=== PATIENT | female | born 1935 | race Caucasian/White ===

== ENCOUNTER 2020-10-06 08:36 | Outpatient (CLI) | payer MEDICARE, OTHER, SELFPAY ==
--- NOTE | 2020-10-06 08:45 | USCV_ITS ---
Carrie Winston Age: 84 Gender: F : 1935 Exam Date: 10/06/2020 09:03 Ordering Phys: Bev Sanders MD ([email or web address]) Technologist: Exam Location[place] [facility] [place]: SOB BP: 120 / 80 HR: 67 Rhythm: Sinus Technical Quality: Adequate MEASUREMENTS (Male / Female) Normal Values 2D ECHO LV Diastolic Diameter PLAX 4.1 cm 4.2 - 5.9 / 3.9 - 5.3 cm LV Systolic Diameter PLAX 2.7 cm IVS Diastolic Thickness 1.1 cm 0.6 - 1.0 / 0.6 - 0.9 cm IVS Systolic Thickness 1.4 cm LVPW Diastolic Thickness 1.1 cm 0.6 - 1.0 / 0.6 - 0.9 cm LVPW Systolic Thickness 1.1 cm LVOT Diameter 2.0 cm LV Ejection Fraction 2D Teich 65.1 % LV Ejection Fraction MOD 2C 62.7 % LV Ejection Fraction 2C AL 62.7 % LA Diameter 3.5 cm LA Width 4.4 cm LA Height 5.0 cm RA Width 4.2 cm RA Height 5.3 cm Aorta at Sinotubular Diameter 2.6 cm M-MODE LV Diastolic Diameter MM 5.0 cm 4.2 - 5.9 / 3.9 - 5.3 cm LV Systolic Diameter MM 3.0 cm LV Ejection Fraction MM Teich 69.5 % IVS Diastolic Thickness MM 0.8 cm 0.6 - 1.0 / 0.6 - 0.9 cm IVS Systolic Thickness MM 1.4 cm LVPW Diastolic Thickness MM 0.8 cm 0.6 - 1.0 / 0.6 - 0.9 cm LVPW Systolic Thickness MM 1.6 cm RV Diastolic Diameter MM 1.4 cm MV E Point Septal Separation 1.4 cm DOPPLER AV Peak Velocity 124.3 cm/s LVOT Peak Velocity 86.0 cm/s AV Area Cont Eq vti 3.3 cm squared AV Area Cont Eq pk 2.3 cm squared MV Area PHT 5.0 cm squared Mitral E to A Ratio 0.9 MV E' Velocity 33.5 cm/s Mitral E to MV E' Ratio 7.6 Mitral E to LV E' Lateral Ratio 9.0 Mitral E to LV E' Septal Ratio 6.7 TR Peak Velocity 218.0 cm/s TR Peak Gradient 19.0 mmHg TV Peak E Velocity 57.0 cm/s Right Atrial Pressure 3.0 mmHg Pulmonary Artery Systolic Pressu 22.0 mmHg PV Peak Velocity 58.0 cm/s FINDINGS Left Ventricle Normal left ventricular cavity size. Normal left ventricular systolic function. No regional wall motion abnormalities. Left ventricular ejection fraction is estimated at 55 %. Right Ventricle The right ventricle is normal in size and function. Right Atrium The right atrium is normal in size. Left Atrium The left atrium is normal in size. Mitral Valve Moderately thickened mitral valve. Moderate-severe mitral valve regurgitation. Aortic Valve Moderate aortic valve calcification. No aortic valve stenosis. Mild aortic valve regurgitation. Moderate aortic valve regurgitation. Tricuspid Valve Moderate tricuspid valve regurgitation. Pulmonic Valve Mild pulmonary valve regurgitation. Pericardium Normal pericardium without effusion. Aorta Normal ascending aorta dimension. CONCLUSIONS 1-Normal left ventricular cavity size. Normal left ventricular systolic function. No regional wall motion abnormalities. Left ventricular ejection fraction is estimated at 55 %. 2-Moderately thickened mitral valve. Moderate-severe mitral valve regurgitation. 3-Moderate tricuspid valve regurgitation. 4-Moderate aortic valve calcification. No aortic valve stenosis. Mild aortic valve regurgitation. Moderate aortic valve regurgitation. 5-There is no pericardial effusion. 6-Right atrial pressure is around 5 mm of mercury. 7-There are no prior echocardiogram studies to compare. Bev Sanders MD (Electronically Signed) Final Date: 15 October 2020 12:22 S
== END 2020-10-06 08:37 | disposition home or self-care (01) ==
LOC: RAD 08:48
PROVIDERS: PCP Internal Medicine; Visit Provider Internal Medicine Cardiovascular Disease
DX: R06.02 Shortness of breath (principal); I08.3 Combined rheumatic disorders of mitral, aortic and tricuspid valves
CPT/HCPCS: 93306

== ENCOUNTER 2020-10-25 10:06 | Outpatient (CLI) | payer MEDICARE, OTHER, SELFPAY ==
--- NOTE | 2020-10-25 10:15 | MR_ITS ---
WS: [id number] MRI BRAIN WITHOUT CONTRAST HISTORY: WEAKNESS OF LEFT ARM COMPARISON: None available. TECHNIQUE: Diffusion imaging, multiplanar T1, T2 and FLAIR imaging obtained. Small acute lacunar infarct in the RIGHT blunt radiata white matter. Not a lot of surrounding edema. No additional infarcts are identified. No hemorrhage. Moderate amount of additional chronic microvascular ischemic disease within the white matter. This is greater on the RIGHT than the LEFT. Chronic ischemic change extends from the RIGHT vertex into the c entrum semiovale ovale and blunt radiata. There is involvement of the subcortical white matter bilat erally. Sorin and cerebellum are negative. Ventricles and extra-axial spaces are normal. No inferior displacement of cerebellar tonsils. The sella turcica and pituitary gland are unremarkabl e. Dural venous sinuses and [place] demonstrate no abnormality on this unenhanced studies. Paranasal sinuses: Clear. Mastoid air cells: Normal. Calvarium and scalp: Intact. MR/MR head wo con* [id number] IMPRESSION: 1. Acute lacunar infarct RIGHT blunt radiata. 2. Moderate chronic microvascular ischemic changes, greatest on the RIGHT. 3. Mild atrophy. Notified Bonnie Gonzalez MD at 10/25/2020 12:40 PM.Unable to speak directly with Dr. Gonzalez . Message was left concerning the MRI brain report and neck CT r eport.
--- NOTE | 2020-10-25 11:08 | CT_ITS ---
WS: [id number] CT NECK WITH CONTRAST HISTORY: LYMPHADENOPATHY TECHNIQUE: Contiguous 5 mm axial images are performed through the neck with intravenous contrast. Sag ittal and coronal reformats are also submitted. All CT scans at [facility] use at least o ne of these dose optimization techniques: automated exposure control; mA and/or kV adjustment per pat ient size (includes targeted exams where dose is matched to clinical indication); or iterative recons truction. CONTRAST: CONTRAST: Omnipaque 300; 95 mL IV. DLP: 640.0 mGycm COMPARISON: None available. Nasopharynx, oropharynx, hypopharynx and larynx are unremarkable. No soft tissue masses or abnormal e nhancement. Torus tubarius and fossa of Rosenmuller and parapharyngeal fat are normal. No significant lymphadenopathy is identified. Markedly atrophic thyroid. Parotid and submandibular glands are negative for any acute mass. 2 mm anterolisthesis of C4. Very high-grade stenosis involving the RIGHT extracranial carotid artery. In the proximal RIGHT ICA t here is a very high-grade and near complete obstruction with a large amount of calcified plaque and i ntimal thickening. Visualized paranasal sinuses and mastoid air cells are normal. Fibrosis at the RIGHT apex. CT/CT neck w con* [id number] IMPRESSION: 1. No neck mass or adenopathy. 2. Severe stenosis involving the proximal RIGHT extracranial ICA. Near complet e occlusion. Recommend follow-up CT angiogram carotid arteries. Notified Bonnie Gonzalez MD at 10/25/2020 12:39 PM.
[2020-10-25] MEDS: iohexol 300 mg/mL 100 mL Btl IV (12:04)
== END 2020-10-25 10:07 | disposition home or self-care (01) ==
PROVIDERS: PCP Internal Medicine; Visit Provider Internal Medicine
DX: R59.1 Generalized enlarged lymph nodes (principal); R53.1 Weakness; I65.21 Occlusion and stenosis of right carotid artery; I63.81 Other cerebral infarction due to occlusion or stenosis of small artery; G31.9 Degenerative disease of nervous system, unspecified
CPT/HCPCS: 70491; 70551; Q9967

== ENCOUNTER 2020-10-31 16:34 | Emergency (ER) | payer MEDICARE, OTHER, SELFPAY ==
[2020-10-31 16:41] VITALS: BP 200/103; PULSE 72; RESP 18; TEMP 36.6; O2SAT 97
--- NOTE | 2020-10-31 17:11 | XRR_ITS ---
PROCEDURE INFORMATION: Exam: XR Chest Exam date and time: 10/31/2020 5:11 PM Age: 84 years old Clinical indication: Other: Weakness; Additional info: Reduced breath sounds TECHNIQUE: Imaging protocol: XR of the chest. Views: 1 view. COMPARISON: No relevant prior studies available. FINDINGS: Lungs: The lungs are clear except for chronic scarring in the right lung apex. Pleural spaces: Unremarkable. No pleural effusion. No pneumothorax. Heart/Mediastinum: Unremarkable. No cardiomegaly. Bones/joints: Incidental thoracic spurs. XR/XR chest 1V portable [id number] IMPRESSION: No acute findings
--- NOTE | 2020-10-31 17:11 | ECG_ITS ---
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 Measurements Intervals [place] Rate: 62 P: 73 TX: 174 QRS: 0 QRSD: 106 T: 41 QT: 427 QTc: 436 Interpretive Statements SINUS RHYTHM INCOMPLETE RIGHT BUNDLE BRANCH BLOCK [90+ ms QRS DURATION, TERMINAL R IN V1/V2, 40+ ms S IN I/aVL/V4/V5/V6] No previous ECG available for comparison Electronically Signed On 10-31-2020 18:52:37 CDT by Suzy Kang M.D. [id number]
--- NOTE | 2020-10-31 17:11 | CTR_ITS ---
PROCEDURE INFORMATION: Exam: CT Head Without Contrast Exam date and time: 10/31/2020 5:11 PM Age: 84 years old Clinical indication: Dizziness and weakness, extremity; Patient HX: PT has been having spells of left side weakness and tingling along with dizzy spells. HX of tonsil CA; Additional info: Symptoms of acute stroke TECHNIQUE: Imaging protocol: Computed tomography of the head without contrast. Radiation optimization: All CT scans at this facility use at least one of these dose optimization techniques: automated exposure control; mA and/or kV adjustment per patient size (includes targeted exams where dose is matched to clinical indication); or iterative reconstruction. COMPARISON: MR head wo con* [id number] 10/25/2020 11:14 AM RADIATION DOSE METRICS: Total DLP (mGy-cm): 737.07 FINDINGS: Brain: There is moderate cortical atrophy. Low-density changes in the white matter are consistent with nonspecific small vessel chronic ischemic change. There is no intracranial mass, hemorrhage or edema. Cerebral ventricles: No ventriculomegaly. Paranasal sinuses: Visualized sinuses are unremarkable. No fluid levels. Mastoid air cells: Visualized mastoid air cells are well aerated. Bones/joints: Unremarkable. No acute fracture. Soft tissues: Unremarkable. CT/CT head wo con* [id number] IMPRESSION: No acute intracranial finding. Lacunar infarct described on 10/25/2020 is not identified on this exam Radiation Dose CTDIVOL = (mGy): DLP = 737.07 (mGy-cm)
[2020-10-31 18:28] VITALS: PULSE 62; RESP 16; O2SAT 96
--- NOTE | 2020-10-31 18:28 | CTR_ITS ---
PROCEDURE INFORMATION: Exam: CT Angiography Head With Contrast, Arteriography Exam date and time: 10/31/2020 6:28 PM Age: 84 years old Clinical indication: Dizziness and giddiness and headache and numbness and weakness; Patient HX: Episodes of dizziness, weakness, left side tingling; Additional info: Severe right carotid stenosis. TIA symptoms. TECHNIQUE: Imaging protocol: Computed tomography angiography of the head with contrast. Exam focused on the arteries. 3D rendering (Not supervised by radiologist): MIP and/or 3D reconstructed images were created by the technologist. Radiation optimization: All CT scans at this facility use at least one of these dose optimization techniques: automated exposure control; mA and/or kV adjustment per patient size (includes targeted exams where dose is matched to clinical indication); or iterative reconstruction. Contrast material: OMNI 350; Contrast volume: 95 ml; Contrast route: INTRAVENOUS (IV); COMPARISON: CT head wo con* [id number] 10/31/2020 5:28 PM RADIATION DOSE METRICS: Total DLP (mGy-cm): 1406.81 FINDINGS: ANTERIOR CIRCULATION: Right internal carotid artery: Unremarkable. Intracranial segment is patent with no significant stenosis. No aneurysm. Right middle cerebral artery: Unremarkable. No occlusion or significant stenosis. No aneurysm. Right anterior cerebral artery: Unremarkable. No occlusion or significant stenosis. No aneurysm. Left internal carotid artery: Unremarkable. Intracranial segment is patent with no significant stenosis. No aneurysm. Left middle cerebral artery: Unremarkable. No occlusion or significant stenosis. No aneurysm. Left anterior cerebral artery: Unremarkable. No occlusion or significant stenosis. No aneurysm. POSTERIOR CIRCULATION: Right vertebral artery: Unremarkable. No occlusion or significant stenosis. No aneurysm. Left vertebral artery: Unremarkable. No occlusion or significant stenosis. No aneurysm. Basilar artery: Unremarkable. No occlusion or significant stenosis. No aneurysm. Right posterior cerebral artery: There is origin of the right posterior cerebral artery. 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 Left posterior cerebral artery: Unremarkable. No occlusion or significant stenosis. No aneurysm. Brain: No definite mass, mass effect, or midline shift. Cerebral ventricles: No ventriculomegaly. Bones/joints: Unremarkable. No acute fracture. Soft tissues: Unremarkable. IMPRESSION: No major vascular occlusion PROCEDURE INFORMATION: Exam: CT Angiography Neck With Contrast Exam date and time: 10/31/2020 6:28 PM Age: 84 years old Clinical indication: Dizziness and giddiness and headache and numbness and weakness; Patient HX: Episodes of dizziness, weakness, left side tingling; Additional info: Severe right carotid stenosis. TIA symptoms. TECHNIQUE: Imaging protocol: Computed tomography angiography of the neck with contrast. 3D rendering (Not supervised by radiologist): MIP and/or 3D reconstructed images were created by the technologist. Radiation optimization: All CT scans at this facility use at least one of these dose optimization techniques: automated exposure control; mA and/or kV adjustment per patient size (includes targeted exams where dose is matched to clinical indication); or iterative reconstruction. Contrast material: OMNI 350; Contrast volume: 95 ml; Contrast route: INTRAVENOUS (IV); COMPARISON: CT head wo con* [id number] 10/31/2020 5:28 PM RADIATION DOSE METRICS: Total DLP (mGy-cm): 1406.81 FINDINGS: Right common carotid artery: No stenosis. No dissection or occlusion. Right internal carotid artery: There is atherosclerotic plaque in the right carotid bifurcation and proximal right internal carotid artery with mild degree of stenosis at the origin of the right internal carotid artery and severe stenosis in the proximal right internal carotid artery being approximately 1.5 cm beyond the bifurcation and extending for a length of approximately 5 mm. The stenosis measures in the 80-99% range according to the NASCET criteria. The stenosis measures in the upper end of this range and borders on occlusion. The caliber of the right internal carotid artery beyond the bifurcation is smaller than the left. Right external carotid artery: No occlusion or stenosis of the origin. Left common carotid artery: No stenosis. No dissection or occlusion. Left internal carotid artery: There is some atherosclerotic calcification at the left carotid bifurcation without significant stenosis as measured according to the NASCET criteria. Left external carotid artery: No occlusion or stenosis of the origin. Right vertebral artery: No stenosis. No dissection or occlusion. Left vertebral artery: Left vertebral artery has a separate origin from the aortic arch which is a developmental variant. No stenosis is seen in the left vertebral artery. Soft tissues: Normal. No significant soft tissue swelling. Bones/joints: No acute fracture. CT/CT angio headneck* [id number] IMPRESSION: Very severe stenosis in the proximal right internal carotid artery bordering on occlusion. REFERENCES: NASCET CRITERIA. The degree of internal carotid artery stenosis is based on NASCET criteria. Normal is no stenosis. Mild is less than 50% stenosis. Moderate is 50-69% stenosis. Severe is 70% to 99% stenosis. Total occlusion is no detectable patent lumen. Radiation Dose CTDIVOL = (mGy): DLP = 1406.81~1406.81 (mGy-cm)
[2020-10-31 18:44] LABS: Basophils % 0.6 %; Eosinophils # 0.1 10^3/uL (0.0-0.8); Eosinophils % 2.1 %; Hemoglobin 14.7 g/dL (11.5-15.3); Lymphocytes # 1.1 10^3/uL (0.8-4.8); Lymphocytes % 17.7 %; Mean Corpuscular Hemoglobin 30.1 pg (28.0-34.0); Mean Corpuscular Volume 94.1 fL (81-99); Mean Platelet Volume 10.2 fL (7.4-10.4); Monocytes # 0.5 10^3/uL (0.2-0.9); Monocytes % 8.1 %; Neutrophils % 71.2 %; Nucleated Red Blood Cells % 0 %; Platelet Count 189 10^3/cmm (130-400); Red Blood Count 4.89 10^6/uL (4.1-5.3); Red Cell Distribution Width 12.9 % (12.1-15.1); White Blood Count 6.3 10^3/uL (4.0-10.0)
[2020-10-31 18:46] VITALS: BP 191/94; PULSE 68; RESP 18; O2SAT 96
[2020-10-31 19:08] LABS: Alanine Aminotransferase 11 U/L (0-33); Albumin Level 4.3 g/dL (3.5-5.2); Alkaline Phosphatase 52 IU/L (35-105); Anion Gap 11.1 (5-19); Aspartate Amino Transferase 17 U/L (0-32); Blood Urea Nitrogen 17 mg/dL (8-23); Calcium 9.5 mg/dL (8.5-10.5); Carbon Dioxide 32 mmol/L (22-29); Chloride 99 mmol/L (98-107); Globulin 3.4 g/dL (1.3-4.6); Glucose 103 mg/dL (65-115); Osmolality Calculated 288 mOsm/kg (285-295); Potassium 4.1 mmol/L (3.5-5.1); Sodium 138 mmol/L (136-145); Total Bilirubin 0.4 mg/dL (0.15-1.2); Total Protein 7.7 g/dL (6.6-8.7)
--- NOTE | 2020-10-31 19:14 | PC.NURSE ---
patient to ct at this time
[2020-10-31] MEDS: iohexol 350 mg/mL 100 mL Btl IV (19:21)
[2020-10-31 19:31] LABS: INR 1.33 (0.8-1.2)
[2020-10-31 19:32] LABS: Partial Thromboplastin Time 43.4 SECONDS (23.9-36.7)
[2020-10-31 19:34] LABS: Add Urine Microscopic? YES; Bilirubin Urine Neg (Negative); Blood Urine 2+ (Negative); Glucose Urine UA Norm (Normal); Ketones Urine Negative (Negative); Leukocyte Esterase Urine Negative (Negative); Nitrate Urine Negative (Negative); Protein Urine Neg (Negative); Specific Gravity, Urine 1.005 (1.005-1.030); Urine Appearance Clear (CLEAR); Urine Color Colorless (Yellow); Urobilinogen Urine Norm (Negative); pH Urine 8 (5-7)
[2020-10-31 19:35] LABS: Add Urine Culture? No; Bacteria Urine TRACE /hpf; RBC Urine 0-4 /hpf (0-2); WBC Urine RARE /hpf (0-5)
[2020-10-31 20:41] VITALS: BP 152/96; PULSE 80; RESP 16; O2SAT 95
--- NOTE | 2020-10-31 20:59 | W.ED.NEUROSD ---
HPI - Neuro Symptoms/Deficit General: Chief Complaint: Neuro Symptoms/Deficit Stated Complaint: LOST FEELING L SIDE OF FACE/L ARM, BLOOD CLOT Time Seen by Provider: 10/31/20 17:00 History of Present Illness: HPI Narrative: The patient is a 84-year-old female with past medical history TIA and recently she had an MRI done of her brain which showed a infarct in the blunt radiata of the right side. Also incidentally while looking for lymphadenopathy in her neck it found a severe stenosis of her right internal carotid artery. She comes in today complaining of a TIA like symptoms with slurred speech, left facial droop and tingling and left upper extremity weakness and tingling 1 hour prior to arrival. By the time she arrived her symptoms had resolved completely. She says she is not slurring her speech whatsoever and the tingling has completely resolved. She says she gets TIAs from time to time and they usually resolve quickly. She has not had a stroke that she knows of though I did tell her the report of the MRI. She also has A. fib and is on Pradaxa chronically. Onset (ago): hour(s) (1) Location: speech, left face and left arm History of same: Yes Severity: moderate Quality: weak and tingling Context: sudden onset On Anticoagulants: Yes Associated symptoms: Reports no associated symptoms; Deny chest pain or headache(s) Review of Systems General: Reports: 10 or more systems reviewed and unremarkable except in HPI and below Narrative: On arrival review of systems is negative Const: Denies: fatigue Eyes: Denies: change in vision, blurry vision or eye redness ENMT: Denies: throat pain, swelling of lips/tongue, ear or mastoid pain or nasal congestion Card: Denies: chest pain, palpitations, irregular heart rhythm, edema, dyspnea on exertion or orthopnea Resp: Denies: dyspnea, productive cough or non-productive cough GI: Denies: abdominal pain, diarrhea or GI cramping : Denies: flank pain, difficulty voiding, urinary frequency or urinary urgency Musc: Denies: neck pain, back pain, extremity pain, joint pain, joint redness, limited range of motion or muscle weakness Skin/Breast: Denies: rash, pruritus, erythema, skin pain or skin tenderness Neuro: Denies: headache(s), numbness in extremities, weakness in extremities, sensory changes, difficulty walking, dizziness, confusion or Slurred speech present Psych: Denies: anxiety or depression Endo: Denies: polyuria All/Imm: Denies: urticaria, throat swelling or tongue swelling PFSH ED PFSH: Medical History (Updated 10/31/20 @ 21:04 by Antony Dubois MD) History of atrial fibrillation Shortness of breath Family History Father Myocardial infarct Hypercholesteremia Mother Hypercholesteremia Alzheimer disease Social History Smoking and tobacco status: never smoked Physical Exam Narrative: EXAM NARRATIVE: Exam is negative. NIH stroke scale 0. Const: COMMON NORMALS: no acute distress, average body habitus, patient oriented x3, no limitations, healthy appearing, alert and well nourished GENERAL APPEARANCE: cooperative, comfortable, well kempt and well developed ORIENTATION/CONSCIOUSNESS: Yes awake, Yes oriented to person, Yes oriented to place and Yes oriented to time HENMT: COMMON NORMALS: normocephalic, external ears normal and Normal external nose present HEAD & SCALP: normal to inspection and normocephalic NOSE: Normal external nose present EXTERNAL EAR: Yes external ears normal MOUTH: Normal oral and palatal mucosa present THROAT: posterior oropharynx normal Eye: COMMON NORMALS: Equal, round and reactive pupils present and EOMs intact bilaterally GENERAL EYE: appearance normal, both eyes and all related structures PUPIL: Yes Equal, round and reactive pupils present Neck/C-Spine: COMMON NORMALS: full ROM, no lymphadenopathy, no meningeal signs and no JVD GENERAL: Yes normal visual inspection Lymph: LYMPHATIC: no lymphadenopathy noted Chest: COMMONS NORMALS: normal inspection of the chest and normal palpation of entire chest wall Resp: COMMON NORMALS: normal respiratory effort, No retractions, No use of accessory muscles, clear to auscultation bilaterally and percussion normal EFFORT & INSPECTION: Yes able to speak in complete sentences AUSCULTATION: clear to auscultation bilaterally PERCUSSION: percussion normal Cardio: COMMON NORMALS: no JVD, regular rate, regular rhythm, S1 normal heart sound present, S2 normal heart sound present and Peripheral pulses 2+ throughout RATE: regular rate RHYTHM: regular rhythm HEART SOUNDS: S1 normal heart sound present and S2 normal heart sound present PERIPHERAL PULSES: Peripheral pulses 2+ throughout GI: COMMON NORMALS: Normal to inspection, nondistended, normoactive bowel sounds present, Soft to palpation, non-tender and no masses INSPECTION: Yes normal to inspection PALPATION: Yes Soft to palpation : COMMON NORMALS: Yes no CVA tenderness BLADDER/KIDNEY EXAM: Yes no CVA tenderness Back/Pelvis: COMMON NORMALS: no CVA tenderness, thoracic and lumbar spine normal to inspection, no thoracic nor lumbar tenderness and thoraco-lumbar ROM normal Extremity: COMMON NORMALS: normal to inspection, full ROM, capillary refill normal, no joint enlargement and no pedal edema GENERAL: Yes normal exam except as noted Neuro: COMMON NORMALS: patient oriented x3, CN's II-XII intact bilaterally, moves all extremities, no focal motor deficits, no sensory deficits noted and gait normal SENSORIUM/ORIENTATION: Yes alert, Yes oriented to person, Yes oriented to place and Yes oriented to time MENINGEAL SIGNS: Yes no meningeal signs Psych: COMMON NORMALS: mental status grossly normal, Normal thought process present, cooperative, normal affect and speech normal APPEARANCE: Yes well kempt ATTITUDE: Yes calm SPEECH: Yes normal speech THOUGHT PROCESS: Normal thought process present Skin: COMMON NORMALS: no rashes or lesions noted GENERAL SKIN EXAM: no rashes or lesions noted Course Vital Signs: Vital signs: Vital Signs Temperature 97.8 F 10/31/20 16:41 Pulse Rate 80 10/31/20 20:41 Respiratory Rate 16 10/31/20 20:41 Blood Pressure 152/96 10/31/20 20:41 Pulse Oximetry 95 10/31/20 20:41 MDM - Neuro Symptoms/Deficit MDM Narrative: Medical decision making narrative: The patient came in complaining of symptoms that sounded like a TIA left facial droop and tingling, slurred speech, left upper extremity weakness and tingling. By the time she arrived to the ER her symptoms resolved. She has had TIAs before. She had a recent CT with contrast of her neck that did show incidentally a severe carotid stenosis. She comes in today with her symptoms completely resolved which lasted less than an hour. She has had multiple TIAs in the past. I discussed with Dr. Mancera and performed a CT angiogram of her head and neck which did show again the severe stenosis. Conveniently her symptoms have resolved. I discussed with multiple facilities which are [facility], [facility]ul[facility], [facility], [facility]. [facility] in [place] excepted Dr. Zhang with the stroke team. He recommended no acute intervention for anticoagulation and recommended allowing permissive hyper tension. She is stable for transfer Lab Data: Labs: Lab Results 10/31/20 10/31/20 10/31/20 Range/Units 18:30 18:30 19:02 WBC 6.3 (4.0-10.0) 10^3/ uL RBC 4.89 (4.1-5.3) 10^6/u L Hgb 14.7 (11.5-15.3) g/dL Hct 46.0 (37.0-47.0) % MCV 94.1 (81-99) fL MCH 30.1 (28.0-34.0) pg MCHC 32.0 (30.0-36.0) g/dL RDW 12.9 (12.1-15.1) % Plt Count 189 (130-400) 10^3/c mm MPV 10.2 (7.4-10.4) fL Neut % (Auto) 71.2 % Lymph % (Auto) 17.7 % [place] % (Auto) 8.1 % Eos % (Auto) 2.1 % Baso % (Auto) 0.6 % Neut # (Auto) 4.50 (1.8-7.7) 10^3/u L Lymph # (Auto) 1.1 (0.8-4.8) 10^3/u L [place] # (Auto) 0.5 (0.2-0.9) 10^3/u L Eos # (Auto) 0.1 (0.0-0.8) 10^3/u L Baso # (Auto) 0.0 (0.0-0.1) 10^3/u L Nucleated RBC % (a uto) 0 % Nucleated RBCs # 0.0 /100WBC PT 16.90 H (12.1-14.9) SECO NDS INR 1.33 H (0.8-1.2) APTT 43.4 H (23.9-36.7) SECO NDS Sodium 138 (136-145) mmol/L Potassium 4.1 (3.5-5.1) mmol/L Chloride 99 (98-107) mmol/L Carbon Dioxide 32 H (22-29) mmol/L Anion Gap 11.1 (5-19) BUN 17 (8-23) mg/dL Creatinine 0.8 (0.5-0.9) mg/dL GFR Calculation Not Reportable Glucose 103 (65-115) mg/dL Calculated Osmolal ity 288 (285-295) mOsm/k g Calcium 9.5 (8.5-10.5) mg/dL Total Bilirubin 0.4 (0.15-1.2) mg/dL AST 17 (0-32) U/L ALT 11 (0-33) U/L Alkaline Phosphata se 52 (35-105) IU/L Total Protein 7.7 (6.6-8.7) g/dL Albumin 4.3 (3.5-5.2) g/dL Globulin 3.4 (1.3-4.6) g/dL Urine Color (Yellow) Urine Appearance (CLEAR) Urine pH (5-7) Ur Specific Gravit y (1.005-1.030) Urine Protein (Negative) Urine Glucose (UA) (Normal) Urine Ketones (Negative) Urine Blood (Negative) Urine Nitrate (Negative) Urine Bilirubin (Negative) Urine Urobilinogen (Negative) mg/dL Ur Leukocyte Kay ase (Negative) Urine RBC (0-2) /hpf Urine WBC (0-5) /hpf Ur Squamous Epith Cells (0-5) /hpf Amorphous Sediment Urine Bacteria (NONE) /hpf 10/31/ Range/Units 19:09 WBC (4.0-10.0) 10^3/ uL RBC (4.1-5.3) 10^6/u L Hgb (11.5-15.3) g/dL Hct (37.0-47.0) % MCV (81-99) fL MCH (28.0-34.0) pg MCHC (30.0-36.0) g/dL RDW (12.1-15.1) % Plt Count (130-400) 10^3/c mm MPV (7.4-10.4) fL Neut % (Auto) % Lymph % (Auto) % [place] % (Auto) % Eos % (Auto) % Baso % (Auto) % Neut # (Auto) (1.8-7.7) 10^3/u L Lymph # (Auto) (0.8-4.8) 10^3/u L [place] # (Auto) (0.2-0.9) 10^3/u L Eos # (Auto) (0.0-0.8) 10^3/u L Baso # (Auto) (0.0-0.1) 10^3/u L Nucleated RBC % (a uto) % Nucleated RBCs # /100WBC PT (12.1-14.9) SECO NDS INR (0.8-1.2) APTT (23.9-36.7) SECO NDS Sodium (136-145) mmol/L Potassium (3.5-5.1) mmol/L Chloride (98-107) mmol/L Carbon Dioxide (22-29) mmol/L Anion Gap (5-19) BUN (8-23) mg/dL Creatinine (0.5-0.9) mg/dL GFR Calculation Glucose (65-115) mg/dL Calculated Osmolal ity (285-295) mOsm/k g Calcium (8.5-10.5) mg/dL Total Bilirubin (0.15-1.2) mg/dL AST (0-32) U/L ALT (0-33) U/L Alkaline Phosphata se (35-105) IU/L Total Protein (6.6-8.7) g/dL Albumin (3.5-5.2) g/dL Globulin (1.3-4.6) g/dL Urine Color Colorless (Yellow) Urine Appearance Clear (CLEAR) Urine pH 8 H (5-7) Ur Specific Gravit y 1.005 (1.005-1.030) Urine Protein Neg (Negative) Urine Glucose (UA) Norm (Normal) Urine Ketones Negative (Negative) Urine Blood 2+ H (Negative) Urine Nitrate Negative (Negative) Urine Bilirubin Neg (Negative) Urine Urobilinogen Norm (Negative) mg/dL Ur Leukocyte Kay ase Negative (Negative) Urine RBC 0-4 H (0-2) /hpf Urine WBC Rare (0-5) /hpf Ur Squamous Epith Cells None (0-5) /hpf Amorphous Sediment Not Reportable Urine Bacteria Trace (NONE) /hpf Discharge Plan Discharge Patient Disposition: Xfer Short-Term Hosp Clinical Impression: Transient cerebral ischemia, Carotid artery stenosis Condition: Stable Referrals: Bonnie Gonzalez MD [Primary Care Provider] - Coding Level of Care Code ED Tear Down Man for Darion Juárez
--- NOTE | 2020-10-31 21:22 | PC.NURSE ---
2115 report given to Krystin LU
[2020-10-31 22:08] VITALS: BP 157/89; PULSE 67; RESP 16; O2SAT 96
[2020-11-01 12:14] LABS: Glucose Point of Care 100 mg/dL (70-110)
== END 2020-10-31 22:10 | disposition short-term general hospital (02) ==
PROVIDERS: Emergency Provider Family Medicine; PCP Internal Medicine
DX: G45.9 Transient cerebral ischemic attack, unspecified (principal); I65.29 Occlusion and stenosis of unspecified carotid artery; R53.1 Weakness
CPT/HCPCS: 36415; 36416; 70450; 70496; 70498; 71045; 80053; 81001; 82962; 85025; 85610; 85730; 93005; 99285; Q9967

== ENCOUNTER 2020-11-09 13:24 | Emergency (ER) | payer MEDICARE, OTHER, SELFPAY ==
[2020-11-09] VITALS (10 sets, daily range): BP systolic 114–135; BP diastolic 56–76; PULSE 59–84; RESP 10–20; TEMP 36.7; O2SAT 93–97
--- NOTE | 2020-11-09 13:33 | XR_ITS ---
WS: [id number] Portable AP upright chest, 11/09/2020 Clinical Data: reduced breath sounds Comparison: Portable chest, 10/31/2020. Findings: No nodules, masses or effusions are seen. The heart is normal. The pulmonary vascularity is not increased. No pneumonia or pneumothorax is seen. There is right pleural reaction. The aortic arc h and descending aorta show mild tortuosity. XR/XR chest 1V portable [id number] Impression: Atherosclerosis.
--- NOTE | 2020-11-09 13:33 | USCV_ITS ---
Tish Carrie Age: 84 Gender: F : 1935 Exam Date: 11/09/2020 14:03 Ordering Phys: Antony Dubois MD Technologist: Amy Mcnulty Exam Location: [facility] Indication: RT ICA STENT IMPLANTED THIS SATURDAY Risk Factors: Unknown Previous Vascular Surgery: RT ICA STENT Right Brachial BP: / Left Brachial BP: / Right Left Velocity (cm/s) Spectral Plaque Velocity (cm/s) Spectral Plaque Syst/Diast Broadening Syst/Diast Broadening 83.10/ 17.80 Prox CCA 63.90 / 13.60 81.00/ 16.20 Mid CCA 72.20 / 14.00 71.90/ 14.20 Distal CCA 62.90 / 15.50 59.90/ 15.70 Prox ICA 61.30 / 12.10 Hetro 67.70/ 15.00 Mid ICA 88.40 / 20.00 71.30/ 16.40 Distal ICA 76.30 / 24.20 128.50 ECA 73.50 0.88 ICA/CCA 1.22 Antegrade Vertebral Antegrade 41.60/ 9.70 cm/s 35.70/ 10.90 cm/s Tri Subclavian Bi 68.90 128.8 0 CONCLUSIONS Right ICA stenosis <50%. Right ICA stent is patent Left ICA stenosis <50%. Mild atheromatous plaque left carotid bulb/ICA. Normal antegrade Doppler flow noted in the right vertebral artery. Normal antegrade Doppler flow noted in the left vertebral artery. Rufino Nieto MD (Electronically Signed) Final Date: 09 November 2020 17:03 S
--- NOTE | 2020-11-09 13:35 | CT_ITS ---
WS: [id number] CT HEAD TECHNIQUE: Noncontrast CT of the head obtained from the skullbase to the vertex. CLINICAL INFORMATION: Symptoms of Acute Stroke COMPARISON: CTA and CT October 31, 2020 DLP: 739.[address] scans at [facility] use at least one of these dose optimization techniques: automat ed exposure control; mA and/or kV adjustment per patient size (includes targeted exams where dose is matched to clinical indication); or iterative reconstruction. FINDINGS: Focal high attenuation intraparenchymal hemorrhage involving the ventral thalamus adjacent to the thi rd ventricle and foramen of Parmar. This extends along the caudothalamic groove and protrudes into th e right lateral ventricle although no evidence of layering blood products in the dependent ventricles . Mild localized mass effect on the third ventricle and foramen of Parmar. No hydrocephalus. Minimal right to left midline shift Ventricular system and basal cisterns are patent. Mild small vessel changes with moderate parenchymal volume loss. No extra-axial fluid collections. 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 CT/CT head wo con* [id number] IMPRESSION: 1. 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 2. Mild mass effect on the adjacent third ventricle and foramen of Parmar. No hydrocephalus. Minimal right to left midline shift measuring 1-2 mm 3. Hematoma protrudes into the right lateral ventricle along the choroid plexu s. No layering blood products. 4. Mild small vessel changes with moderate parenchymal volume loss. Notified Antony Dubois MD at 11/09/2020 2:08 PM.
--- NOTE | 2020-11-09 13:36 | ECG_ITS ---
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 Measurements Intervals [place] Rate: 63 P: 83 RI: 178 QRS: -9 QRSD: 102 T: 18 QT: 428 QTc: 439 Interpretive Statements SINUS RHYTHM NONSPECIFIC T-WAVE ABNORMALITY Compared to ECG 10/31/2020 18:08:31 T-wave abnormality now present Incomplete right bundle-branch block no longer present Electronically Signed On 11-10-2020 7:02:09 CDT by Letty Garcia M.D. [id number]
[2020-11-09 14:27] LABS: Basophils % 0.4 %; Eosinophils # 0.1 10^3/uL (0.0-0.8); Eosinophils % 1.1 %; Hematocrit 39.5 % (37.0-47.0); Hemoglobin 12.6 g/dL (11.5-15.3); Lymphocytes # 0.8 10^3/uL (0.8-4.8); Lymphocytes % 9.5 %; Mean Corpuscular HGB Conc 31.9 g/dL (30.0-36.0); Mean Corpuscular Hemoglobin 30.5 pg (28.0-34.0); Mean Corpuscular Volume 95.6 fL (81-99); Mean Platelet Volume 10.1 fL (7.4-10.4); Monocytes # 0.6 10^3/uL (0.2-0.9); Monocytes % 6.8 %; Neutrophils # 6.97 10^3/uL (1.8-7.7); Neutrophils % 81.7 %; Nucleated Red Blood Cells % 0 %; Platelet Count 254 10^3/cmm (130-400); Red Blood Count 4.13 10^6/uL (4.1-5.3); Red Cell Distribution Width 13.2 % (12.1-15.1); White Blood Count 8.5 10^3/uL (4.0-10.0)
[2020-11-09 14:28] LABS: Glucose Point of Care 133 mg/dL (70-110)
[2020-11-09 14:55] LABS: Troponin(5th) Baseline 17 ng/L (0-10)
[2020-11-09 14:58] LABS: Alanine Aminotransferase 22 U/L (0-33); Albumin Level 3.8 g/dL (3.5-5.2); Alkaline Phosphatase 60 IU/L (35-105); Anion Gap 13.8 (5-19); Aspartate Amino Transferase 20 U/L (0-32); Blood Urea Nitrogen 16 mg/dL (8-23); Calcium 9.2 mg/dL (8.5-10.5); Carbon Dioxide 29 mmol/L (22-29); Chloride 99 mmol/L (98-107); Creatine Phosphokinase 48 U/L (26-192); Globulin 2.5 g/dL (1.3-4.6); Glucose 131 mg/dL (65-115); Osmolality Calculated 289 mOsm/kg (285-295); Potassium 3.8 mmol/L (3.5-5.1); Sodium 138 mmol/L (136-145); Total Bilirubin 0.5 mg/dL (0.15-1.2); Total Protein 6.3 g/dL (6.6-8.7)
[2020-11-09 15:05] LABS: Partial Thromboplastin Time 29.7 SECONDS (23.9-36.7)
[2020-11-09 17:01] LABS: Troponin 5 2HR 17.35 ng/L (0-10); Troponin 5 2HR Delta 0.35 ABS# (0-10)
--- NOTE | 2020-11-09 17:14 | W.ED.WEAKNES ---
HPI - Weakness General: Chief complaint: Weakness Stated complaint: Issa COVARRUBIAS RECENT STENT PLACEMENT Time Seen by Provider: 11/09/20 13:33 History of Present Illness: HPI Narrative: The patient is an 84-year-old female who comes to the ER complaining of increasing generalized weakness. 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 She had a stent placed and was on Pradaxa. 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 It was monitored and it was stable on images per her discharge paperwork. She was discharged home 2 days ago and since has had increasing generalized weakness. No focal weakness. NIH score on arrival is 0. No slurred speech, facial droop, or focal weakness noted. MD Complaint: generalized weakness and lack of energy Duration: intermittent Location: generalized Severity: moderate Relieving factors: none Exacerbating factors: none Associated symptoms: Reports no associated symptoms; Denies chest pain, confusion or headache(s) Review of Systems General: Reports: 10 or more systems reviewed and unremarkable except in HPI and below Const: Reports: fatigue Eyes: Denies: change in vision, blurry vision or eye redness ENMT: Denies: throat pain, swelling of lips/tongue, ear or mastoid pain or nasal congestion Card: Denies: chest pain, palpitations, irregular heart rhythm, edema, dyspnea on exertion or orthopnea Resp: Denies: dyspnea, productive cough or non-productive cough GI: Denies: abdominal pain, diarrhea or GI cramping : Denies: flank pain, difficulty voiding, urinary frequency or urinary urgency Musc: Denies: neck pain, back pain, extremity pain, joint pain, joint redness, limited range of motion or muscle weakness Skin/Breast: Denies: rash, pruritus, erythema, skin pain or skin tenderness Neuro: Denies: headache(s), numbness in extremities, weakness in extremities, sensory changes, difficulty walking, dizziness, confusion or Slurred speech present Psych: Denies: anxiety or depression Endo: Denies: polyuria All/Imm: Denies: urticaria, throat swelling or tongue swelling PFSH ED PFSH: Medical History (Updated 11/09/20 @ 17:19 by Antony Dubois MD) History of atrial fibrillation Shortness of breath Family History Father Myocardial infarct Hypercholesteremia Mother Hypercholesteremia Alzheimer disease Social History Smoking and tobacco status: never smoked Physical Exam Const: COMMON NORMALS: no acute distress, average body habitus, patient oriented x3, no limitations, healthy appearing, alert and well nourished GENERAL APPEARANCE: cooperative, comfortable, well kempt and well developed ORIENTATION/CONSCIOUSNESS: Yes awake, Yes oriented to person, Yes oriented to place and Yes oriented to time HENMT: COMMON NORMALS: normocephalic, external ears normal and Normal external nose present HEAD & SCALP: normal to inspection and normocephalic NOSE: Normal external nose present EXTERNAL EAR: Yes external ears normal MOUTH: Normal oral and palatal mucosa present THROAT: posterior oropharynx normal Eye: COMMON NORMALS: Equal, round and reactive pupils present and EOMs intact bilaterally GENERAL EYE: appearance normal, both eyes and all related structures PUPIL: Yes Equal, round and reactive pupils present Neck/C-Spine: COMMON NORMALS: full ROM, no lymphadenopathy, no meningeal signs and no JVD GENERAL: Yes normal visual inspection Lymph: LYMPHATIC: no lymphadenopathy noted Chest: COMMONS NORMALS: normal inspection of the chest and normal palpation of entire chest wall Resp: COMMON NORMALS: normal respiratory effort, No retractions, No use of accessory muscles, clear to auscultation bilaterally and percussion normal EFFORT & INSPECTION: Yes able to speak in complete sentences AUSCULTATION: clear to auscultation bilaterally PERCUSSION: percussion normal Cardio: COMMON NORMALS: no JVD, regular rate, regular rhythm, S1 normal heart sound present, S2 normal heart sound present and Peripheral pulses 2+ throughout RATE: regular rate RHYTHM: regular rhythm HEART SOUNDS: S1 normal heart sound present and S2 normal heart sound present PERIPHERAL PULSES: Peripheral pulses 2+ throughout GI: COMMON NORMALS: Normal to inspection, nondistended, normoactive bowel sounds present, Soft to palpation, non-tender and no masses INSPECTION: Yes normal to inspection PALPATION: Yes Soft to palpation : COMMON NORMALS: Yes no CVA tenderness BLADDER/KIDNEY EXAM: Yes no CVA tenderness Back/Pelvis: COMMON NORMALS: no CVA tenderness, thoracic and lumbar spine normal to inspection, no thoracic nor lumbar tenderness and thoraco-lumbar ROM normal Extremity: COMMON NORMALS: normal to inspection, full ROM, capillary refill normal, no joint enlargement and no pedal edema GENERAL: Yes normal exam except as noted Neuro: COMMON NORMALS: patient oriented x3, CN's II-XII intact bilaterally, moves all extremities, no focal motor deficits, no sensory deficits noted and gait normal SENSORIUM/ORIENTATION: Yes alert, Yes oriented to person, Yes oriented to place and Yes oriented to time MENINGEAL SIGNS: Yes no meningeal signs Psych: COMMON NORMALS: mental status grossly normal, Normal thought process present, cooperative, normal affect and speech normal APPEARANCE: Yes well kempt ATTITUDE: Yes calm SPEECH: Yes normal speech THOUGHT PROCESS: Normal thought process present Skin: COMMON NORMALS: no rashes or lesions noted GENERAL SKIN EXAM: no rashes or lesions noted Course Vital Signs: Vital signs: Vital Signs Temperature 98.1 F 11/09/20 13:31 Pulse Rate 84 11/09/20 19:03 Respiratory Rate 20 H 11/09/20 19:03 Blood Pressure 114/63 11/09/20 19:03 Pulse Oximetry 96 11/09/20 19:03 MDM - Weakness MDM Narrative: Medical decision making narrative: The patient came in complaining of generalized weakness. CT of the head showed a hemorrhagic CVA. Her discharge paperwork from his do show that she had already had this and was monitored there after the placement of a right carotid stent. She was anticoagulated and after the stent placement increased blood flow to the area likely caused the hemorrhagic stroke. It was monitored there over a number of days and was not increasing in size. She was sent home 2 days ago and has had had increasing generalized weakness. CT again shows the hemorrhagic area today. Discussion with Dr. Spears neurosurgery at [facility] suggest the lesion is likely the same size. Cannot find any other reason for increasing generalized weakness. Discussed with hospitalist who refused to accept here. Dr. Spears accepts to [facility] pending bed availability. Patient and family are agreeable to this. Lab Data: Labs: Lab Results 11/09/20 11/09/20 11/09/20 Range/Units 14:20 14:20 14:20 WBC 8.5 (4.0-10.0) 10^3/ uL RBC 4.13 (4.1-5.3) 10^6/u L Hgb 12.6 (11.5-15.3) g/dL Hct 39.5 (37.0-47.0) % MCV 95.6 (81-99) fL MCH 30.5 (28.0-34.0) pg MCHC 31.9 (30.0-36.0) g/dL RDW 13.2 (12.1-15.1) % Plt Count 254 (130-400) 10^3/c mm MPV 10.1 (7.4-10.4) fL Neut % (Auto) 81.7 % Lymph % (Auto) 9.5 % Grand % (Auto) 6.8 % Eos % (Auto) 1.1 % Baso % (Auto) 0.4 % Neut # (Auto) 6.97 (1.8-7.7) 10^3/u L Lymph # (Auto) 0.8 (0.8-4.8) 10^3/u L Grand # (Auto) 0.6 (0.2-0.9) 10^3/u L Eos # (Auto) 0.1 (0.0-0.8) 10^3/u L Baso # (Auto) 0.0 (0.0-0.1) 10^3/u L Nucleated RBC % (a uto) 0 % Nucleated RBCs # 0.0 /100WBC PT 13.50 (12.1-14.9) SECO NDS INR 1.00 (0.8-1.2) APTT 29.7 (23.9-36.7) SECO NDS Sodium 138 (136-145) mmol/L Potassium 3.8 (3.5-5.1) mmol/L Chloride 99 (98-107) mmol/L Carbon Dioxide 29 (22-29) mmol/L Anion Gap 13.8 (5-19) BUN 16 (8-23) mg/dL Creatinine 0.8 (0.5-0.9) mg/dL GFR Calculation Not Reportable Glucose 131 H (65-115) mg/dL POC Glucose (70-110) mg/dL Calculated Osmolal ity 289 (285-295) mOsm/k g Calcium 9.2 (8.5-10.5) mg/dL Total Bilirubin 0.5 (0.15-1.2) mg/dL AST 20 (0-32) U/L ALT 22 (0-33) U/L Alkaline Phosphata se 60 (35-105) IU/L Creatine Kinase 48 (26-192) U/L Troponin T Baselin e (0-10) ng/L Troponin T 120 Min [place] (0-10) ng/L Delta Troponin T (0-10) ABS# Total Protein 6.3 L (6.6-8.7) g/dL Albumin 3.8 (3.5-5.2) g/dL Globulin 2.5 (1.3-4.6) g/dL 11/09/20 11/09/20 11/09/20 Range/Units 14:20 14:26 16:29 WBC (4.0-10.0) 10^3/ uL RBC (4.1-5.3) 10^6/u L Hgb (11.5-15.3) g/dL Hct (37.0-47.0) % MCV (81-99) fL MCH (28.0-34.0) pg MCHC (30.0-36.0) g/dL RDW (12.1-15.1) % Plt Count (130-400) 10^3/c mm MPV (7.4-10.4) fL Neut % (Auto) % Lymph % (Auto) % Grand % (Auto) % Eos % (Auto) % Baso % (Auto) % Neut # (Auto) (1.8-7.7) 10^3/u L Lymph # (Auto) (0.8-4.8) 10^3/u L Grand # (Auto) (0.2-0.9) 10^3/u L Eos # (Auto) (0.0-0.8) 10^3/u L Baso # (Auto) (0.0-0.1) 10^3/u L Nucleated RBC % (a uto) % Nucleated RBCs # /100WBC PT (12.1-14.9) SECO NDS INR (0.8-1.2) APTT (23.9-36.7) SECO NDS Sodium (136-145) mmol/L Potassium (3.5-5.1) mmol/L Chloride (98-107) mmol/L Carbon Dioxide (22-29) mmol/L Anion Gap (5-19) BUN (8-23) mg/dL Creatinine (0.5-0.9) mg/dL GFR Calculation Glucose (65-115) mg/dL POC Glucose 133 H (70-110) mg/dL Calculated Osmolal ity (285-295) mOsm/k g Calcium (8.5-10.5) mg/dL Total Bilirubin (0.15-1.2) mg/dL AST (0-32) U/L ALT (0-33) U/L Alkaline Phosphata se (35-105) IU/L Creatine Kinase (26-192) U/L Troponin T Baselin e 17 H (0-10) ng/L Troponin T 120 Min [place] 17.35 H (0-10) ng/L Delta Troponin T 0.35 (0-10) ABS# Total Protein (6.6-8.7) g/dL Albumin (3.5-5.2) g/dL Globulin (1.3-4.6) g/dL Discharge Plan Discharge Patient Disposition: Xfer Short-Term Hosp Clinical Impression: Generalized weakness, Hemorrhagic stroke Condition: Stable Referrals: Bonnie Gonzalez MD [Primary Care Provider] - Coding Level of Care Code ED Filter Tip Inspector for Chg Fwd Exam Comprehensive
--- NOTE | 2020-11-09 18:20 | PC.NURSE ---
Report called to Sonya Eugene RN at [facility] in [facility]. Pt is stable and ready for transportation. Informed Dr Dubois of motion sickness per family. Received orders for Meclizine prior to transportation.
[2020-11-09] MEDS: meclizine 25 mg tablet PO (18:57)
--- NOTE | 2020-11-09 19:36 | ECG_ITS ---
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 Measurements Intervals [place] Rate: 59 P: 75 CT: 184 QRS: -4 QRSD: 98 T: 47 QT: 435 QTc: 431 Interpretive Statements SINUS BRADYCARDIA NONSPECIFIC T-WAVE ABNORMALITY Compared to ECG 11/09/2020 13:43:55 Sinus rhythm no longer present T-wave abnormality still present Electronically Signed On 11-10-2020 7:14:41 CDT by Letty Garcia M.D. [id number]
== END 2020-11-09 19:04 | disposition short-term general hospital (02) ==
PROVIDERS: Emergency Provider Family Medicine; PCP Internal Medicine
DX: R53.1 Weakness (principal); I62.9 Nontraumatic intracranial hemorrhage, unspecified
CPT/HCPCS: 36416; 70450; 71045; 80053; 82550; 82962; 84484; 85025; 85610; 85730; 93005; 93880; 99285; J8597

== ENCOUNTER 2021-01-27 16:15 | Emergency (ER) | payer MEDICARE, OTHER, SELFPAY ==
[2021-01-27 16:18] VITALS: BP 167/82; PULSE 60; RESP 18; TEMP 36.6; O2SAT 98; BMI 20.6
--- NOTE | 2021-01-27 16:21 | W.ED.DIZZY ---
Documented by User: Charlie Bowen MD 01/28/21 07:29 HPI - Dizziness General: Chief Complaint: Dizziness Stated Complaint: dizziness, nausea Time Seen by Provider: 01/27/21 16:18 History of Present Illness: HPI Narrative: Ms. Winston is an 85-year-old lady with significant past medical history of hypertension, hyperlipidemia, atrial fibrillation, and right carotid stenosis s/p stenting who presents to the emergency department due to an episode of lightheadedness. She reports prior to the stent she would have intermittent episodes of dizziness. These occurred randomly and were sometimes associated with right-sided numbness however there were also times where they were provoked by certain positions. Since her procedure she has not had recurrence until a somewhat similar episode today. She reports being at her baseline health earlier this morning without significant abnormality. 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 This lightheadedness was more presyncopal in nature than spinning dizziness. She did note left arm numbness though as well. Overall the intensity symptoms was moderate to severe. The course has improved and her symptoms have resolved. No other specific exacerbating, provoking, or alleviating factors identified. Review of Systems General: Reports: 10 or more systems reviewed and unremarkable except in HPI and below PFSH ED PFSH: Medical History History of atrial fibrillation Shortness of breath Family History Father Myocardial infarct Hypercholesteremia Mother Hypercholesteremia Alzheimer disease Social History Smoking and tobacco status: never smoked Physical Exam Narrative: EXAM NARRATIVE: GENERAL/CONSTITUTIONAL - well-appearing. No acute distress. Eyes - PERRL, no conjunctival injection ENMT - Atraumatic external nose and ears. Moist mucous membranes NECK - supple. trachea midline CARDIOVASCULAR - regular rate and rhythm. Peripheral pulses 2+ and equal RESPIRATORY -clear to auscultation bilaterally. No retractions or accessory muscle use. ABDOMEN/GI - Nontender/Nondistended. No tenderness to percussion or evidence of peritonitis MSK - Extremities without obvious deformity or tenderness to palpation SKIN - Warm, Dry NEURO - alert and appropriately oriented. Cranial nerves II through XII intact. Strength and sensation intact. Moves all extremities equally. PSYCH - Appropriate mood and affect Course ED course: - Patient was seen and evaluated by me at bedside - Patient placed on cardiac monitors, IV access obtained - Initial evaluation notable for no acute distress, nontoxic appearance. No focal neurologic deficits. Patient has resolution of symptoms prior to arrival. - Labs and imaging ordered - Patient care handed off to Dr. Mckenzie pending completion of evaluation. Based on patient's symptom description likely presyncope in nature, no true syncope occurred. Likely to discharge. Vital Signs: Vital signs: Vital Signs Temperature 97.9 F 01/27/21 16:18 Pulse Rate 72 01/27/21 19:22 Respiratory Rate 18 01/27/21 19:22 Blood Pressure 126/66 01/27/21 19:22 Pulse Oximetry 95 01/27/21 19:22 MDM - Dizziness Medical Records: Attestation: I reviewed the patient's medical records. Lab Data: Attestation: I reviewed the patient's lab results. Labs: Lab Results 01/27/21 01/27/21 01/27/21 Range/Units 15:45 15:45 15:45 WBC 9.1 (4.0-10.0) 10^3/ uL RBC 4.14 (4.1-5.3) 10^6/u L Hgb 11.5 (11.5-15.3) g/dL Hct 36.7 L (37.0-47.0) % MCV 88.6 (81-99) fl MCH 27.8 L (28.0-34.0) pg MCHC 31.3 (30.0-36.0) g/dL RDW 12.9 (12.1-15.1) % Plt Count 242 (130-400) 10^3/c mm MPV 10.8 H (7.4-10.4) fL Neut % (Auto) 70.3 % Lymph % (Auto) 19.5 % [place] % (Auto) 8.3 % Eos % (Auto) 1.1 % Baso % (Auto) 0.6 % Neut # (Auto) 6.40 (1.8-7.7) 10^3/u L Lymph # (Auto) 1.8 (0.8-4.8) 10^3/u L [place] # (Auto) 0.8 (0.2-0.9) 10^3/u L Eos # (Auto) 0.1 (0.0-0.8) 10^3/u L Baso # (Auto) 0.1 (0.0-0.1) 10^3/u L Nucleated RBC % (a uto) 0 % Nucleated RBCs # 0.0 /100WBC Sodium 139 (136-145) mmol/L Potassium 4.3 (3.5-5.1) mmol/L Chloride 101 (98-107) mmol/L Carbon Dioxide 25 (22-29) mmol/L Anion Gap 17.3 (5-19) BUN 16 (8-23) mg/dL Creatinine 0.8 (0.5-0.9) mg/dL GFR Calculation Not Reportable Glucose 117 H (65-115) mg/dL Calculated Osmolal ity 290 (285-295) mOsm/k g Calcium 9.6 (8.5-10.5) mg/dL Total Bilirubin 0.4 (0.15-1.2) mg/dL AST 19 (0-32) U/L ALT 16 (0-33) U/L Alkaline Phosphata se 53 (35-105) IU/L Troponin T Baselin e 16 H (0-10) ng/L Troponin T 120 Min [place] (0-10) ng/L Delta Troponin T (0-10) ABS# Total Protein 7.0 (6.6-8.7) g/dL Albumin 4.3 (3.5-5.2) g/dL Globulin 2.7 (1.3-4.6) g/dL TSH 7.92 H (0.27-4.20) uIU/ mL Free T4 (0.82-1.77) ng/d L Urine Color (Yellow) Urine Appearance (CLEAR) Urine pH (5-7) Ur Specific Gravit y (1.005-1.030) Urine Protein (Negative) Urine Glucose (UA) (Normal) Urine Ketones (Negative) Urine Blood (Negative) Urine Nitrate (Negative) Urine Bilirubin (Negative) Urine Urobilinogen (Negative) mg/dL Ur Leukocyte Kay ase (Negative) SARS-CoV-2 Ag (Rap id) (Negative) 09/01/27/21 01/27/21 Range/Units 15:45 17:15 17:50 WBC (4.0-10.0) 10^3/ uL RBC (4.1-5.3) 10^6/u L Hgb (11.5-15.3) g/dL Hct (37.0-47.0) % MCV (81-99) fl MCH (28.0-34.0) pg MCHC (30.0-36.0) g/dL RDW (12.1-15.1) % Plt Count (130-400) 10^3/c mm MPV (7.4-10.4) fL Neut % (Auto) % Lymph % (Auto) % [place] % (Auto) % Eos % (Auto) % Baso % (Auto) % Neut # (Auto) (1.8-7.7) 10^3/u L Lymph # (Auto) (0.8-4.8) 10^3/u L [place] # (Auto) (0.2-0.9) 10^3/u L Eos # (Auto) (0.0-0.8) 10^3/u L Baso # (Auto) (0.0-0.1) 10^3/u L Nucleated RBC % (a uto) % Nucleated RBCs # /100WBC Sodium (136-145) mmol/L Potassium (3.5-5.1) mmol/L Chloride (98-107) mmol/L Carbon Dioxide (22-29) mmol/L Anion Gap (5-19) BUN (8-23) mg/dL Creatinine (0.5-0.9) mg/dL GFR Calculation Glucose (65-115) mg/dL Calculated Osmolal ity (285-295) mOsm/k g Calcium (8.5-10.5) mg/dL Total Bilirubin (0.15-1.2) mg/dL AST (0-32) U/L ALT (0-33) U/L Alkaline Phosphata se (35-105) IU/L Troponin T Baselin e (0-10) ng/L Troponin T 120 Min [place] 15.95 H (0-10) ng/L Delta Troponin T -0.05 L (0-10) ABS# Total Protein (6.6-8.7) g/dL Albumin (3.5-5.2) g/dL Globulin (1.3-4.6) g/dL TSH (0.27-4.20) uIU/ mL Free T4 1.29 (0.82-1.77) ng/d L Urine Color (Yellow) Urine Appearance (CLEAR) Urine pH (5-7) Ur Specific Gravit y (1.005-1.030) Urine Protein (Negative) Urine Glucose (UA) (Normal) Urine Ketones (Negative) Urine Blood (Negative) Urine Nitrate (Negative) Urine Bilirubin (Negative) Urine Urobilinogen (Negative) mg/dL Ur Leukocyte Kay ase (Negative) SARS-CoV-2 Ag (Rap id) Negative (Negative) 01/27/21 Range/Units 18:40 WBC (4.0-10.0) 10^3/ uL RBC (4.1-5.3) 10^6/u L Hgb (11.5-15.3) g/dL Hct (37.0-47.0) % MCV (81-99) fl MCH (28.0-34.0) pg MCHC (30.0-36.0) g/dL RDW (12.1-15.1) % Plt Count (130-400) 10^3/c mm MPV (7.4-10.4) fL Neut % (Auto) % Lymph % (Auto) % [place] % (Auto) % Eos % (Auto) % Baso % (Auto) % Neut # (Auto) (1.8-7.7) 10^3/u L Lymph # (Auto) (0.8-4.8) 10^3/u L [place] # (Auto) (0.2-0.9) 10^3/u L Eos # (Auto) (0.0-0.8) 10^3/u L Baso # (Auto) (0.0-0.1) 10^3/u L Nucleated RBC % (a uto) % Nucleated RBCs # /100WBC Sodium (136-145) mmol/L Potassium (3.5-5.1) mmol/L Chloride (98-107) mmol/L Carbon Dioxide (22-29) mmol/L Anion Gap (5-19) BUN (8-23) mg/dL Creatinine (0.5-0.9) mg/dL GFR Calculation Glucose (65-115) mg/dL Calculated Osmolal ity (285-295) mOsm/k g Calcium (8.5-10.5) mg/dL Total Bilirubin (0.15-1.2) mg/dL AST (0-32) U/L ALT (0-33) U/L Alkaline Phosphata se (35-105) IU/L Troponin T Baselin e (0-10) ng/L Troponin T 120 Min [place] (0-10) ng/L Delta Troponin T (0-10) ABS# Total Protein (6.6-8.7) g/dL Albumin (3.5-5.2) g/dL Globulin (1.3-4.6) g/dL TSH (0.27-4.20) uIU/ mL Free T4 (0.82-1.77) ng/d L Urine Color Yellow (Yellow) Urine Appearance Clear (CLEAR) Urine pH 7 (5-7) Ur Specific Gravit y 1.005 (1.005-1.030) Urine Protein Neg (Negative) Urine Glucose (UA) Norm (Normal) Urine Ketones Negative (Negative) Urine Blood Neg (Negative) Urine Nitrate Negative (Negative) Urine Bilirubin Neg (Negative) Urine Urobilinogen Norm (Negative) mg/dL Ur Leukocyte Kay ase Negative (Negative) SARS-CoV-2 Ag (Rap id) (Negative) EKG Data^: EKG 1: Attestation: I personally reviewed and interpreted this EKG as follows: EKG interpretation date: 01/27/21 EKG interpretation time: 16:55 Interpretation: Twelve-lead EKG shows a regular sinus rhythm at a rate of 56. OH interval 181, QRS duration 97, QTc 439. Borderline axis. Interpretation: Sinus rhythm, nonspecific ST segment abnormalities Discharge Plan Discharge Patient Disposition: Home Clinical Impression: Pre-syncope, Shortness of breath, Nausea Condition: Stable Prescriptions: No Action latanoprost [Xalatan] 0.005 % drops 1 drp ophthalmic (eye) BEDTIME RF: 0 pantoprazole 40 mg tablet,delayed release (DR/EC) 40 mg PO QAM RF: 0 metoprolol tartrate 100 mg tablet 100 mg PO Q12H RF: 0 atorvastatin 40 mg Tablet 40 mg PO QAM RF: 0 clopidogrel 75 mg tablet 75 mg PO QAM RF: 0 multivitamin Liquid 5 ml PO DAILY RF: 0 levothyroxine 75 mcg tablet 75 mcg PO QAM RF: 0 Vitamin D3 125 mcg (5,000 unit) Tablet 125 mcg PO .FOUR TIMES A WEEK RF: 0 Pradaxa 110 mg capsule 110 mg PO BID RF: 0 Discharge Orders: Discharge ED (Routine); Ordered 01/27/21 Ordered By: Nuris Mckenzie Referrals: Bonnie Gonzalez MD [Primary Care Provider] - 1-3 days Discharge Diet: Usual diet Discharge Activity: Resume usual activity Patient Instructions: Dyspnea (ED), Near Syncope (ED) Activity Restrictions/Additional Instructions: Thank you for visiting the emergency department. You were seen and evaluated for what sounds like presyncope. Please follow-up with your primary care provider. Please return to the emergency department for anything that you are concerned about and feel needs emergency department evaluation. Coding Level of Care Code ED Upholsterer Outside for Chg Fwd Documented by User: Nuris Mckenzie MD 01/27/21 19:27 HPI - Dizziness General: Chief Complaint: Dizziness Stated Complaint: dizziness, nausea Time Seen by Provider: 01/27/21 16:18 [facility] ED PFSH: Medical History History of atrial fibrillation Shortness of breath Family History Father Myocardial infarct Hypercholesteremia Mother Hypercholesteremia Alzheimer disease Social History Smoking and tobacco status: never smoked Course Vital Signs: Vital signs: Vital Signs Temperature 97.9 F 01/27/21 16:18 Pulse Rate 72 01/27/21 19:22 Respiratory Rate 18 01/27/21 19:22 Blood Pressure 126/66 01/27/21 19:22 Pulse Oximetry 95 01/27/21 19:22 MDM - Dizziness MDM Narrative: Medical decision making narrative: Patient presents here with a near syncopal event and some dizziness is since resolved. I spoke to her at length at discharge states she felt much improved would like to go home. Her CTA here is normal and she has good results from her previous stent in her carotid. Her work-up here is otherwise normal as well. She is stable for discharge is to follow-up with PCP and return if worsening. Lab Data: Labs: Lab Results 01/27/21 01/27/21 01/27/21 Range/Units 15:45 15:45 15:45 WBC 9.1 (4.0-10.0) 10^3/ uL RBC 4.14 (4.1-5.3) 10^6/u L Hgb 11.5 (11.5-15.3) g/dL Hct 36.7 L (37.0-47.0) % MCV 88.6 (81-99) fl MCH 27.8 L (28.0-34.0) pg MCHC 31.3 (30.0-36.0) g/dL RDW 12.9 (12.1-15.1) % Plt Count 242 (130-400) 10^3/c mm MPV 10.8 H (7.4-10.4) fL Neut % (Auto) 70.3 % Lymph % (Auto) 19.5 % [place] % (Auto) 8.3 % Eos % (Auto) 1.1 % Baso % (Auto) 0.6 % Neut # (Auto) 6.40 (1.8-7.7) 10^3/u L Lymph # (Auto) 1.8 (0.8-4.8) 10^3/u L [place] # (Auto) 0.8 (0.2-0.9) 10^3/u L Eos # (Auto) 0.1 (0.0-0.8) 10^3/u L Baso # (Auto) 0.1 (0.0-0.1) 10^3/u L Nucleated RBC % (a uto) 0 % Nucleated RBCs # 0.0 /100WBC Sodium 139 (136-145) mmol/L Potassium 4.3 (3.5-5.1) mmol/L Chloride 101 (98-107) mmol/L Carbon Dioxide 25 (22-29) mmol/L Anion Gap 17.3 (5-19) BUN 16 (8-23) mg/dL Creatinine 0.8 (0.5-0.9) mg/dL GFR Calculation Not Reportable Glucose 117 H (65-115) mg/dL Calculated Osmolal ity 290 (285-295) mOsm/k g Calcium 9.6 (8.5-10.5) mg/dL Total Bilirubin 0.4 (0.15-1.2) mg/dL AST 19 (0-32) U/L ALT 16 (0-33) U/L Alkaline Phosphata se 53 (35-105) IU/L Troponin T Baselin e 16 H (0-10) ng/L Troponin T 120 Min [place] (0-10) ng/L Delta Troponin T (0-10) ABS# Total Protein 7.0 (6.6-8.7) g/dL Albumin 4.3 (3.5-5.2) g/dL Globulin 2.7 (1.3-4.6) g/dL TSH 7.92 H (0.27-4.20) uIU/ mL Free T4 (0.82-1.77) ng/d L Urine Color (Yellow) Urine Appearance (CLEAR) Urine pH (5-7) Ur Specific Gravit y (1.005-1.030) Urine Protein (Negative) Urine Glucose (UA) (Normal) Urine Ketones (Negative) Urine Blood (Negative) Urine Nitrate (Negative) Urine Bilirubin (Negative) Urine Urobilinogen (Negative) mg/dL Ur Leukocyte Kay ase (Negative) SARS-CoV-2 Ag (Rap id) (Negative) 01/27/21 01/27/21 01/27/21 Range/Units 15:45 17:15 17:50 WBC (4.0-10.0) 10^3/ uL RBC (4.1-5.3) 10^6/u L Hgb (11.5-15.3) g/dL Hct (37.0-47.0) % MCV (81-99) fl MCH (28.0-34.0) pg MCHC (30.0-36.0) g/dL RDW (12.1-15.1) % Plt Count (130-400) 10^3/c mm MPV (7.4-10.4) fL Neut % (Auto) % Lymph % (Auto) % [place] % (Auto) % Eos % (Auto) % Baso % (Auto) % Neut # (Auto) (1.8-7.7) 10^3/u L Lymph # (Auto) (0.8-4.8) 10^3/u L [place] # (Auto) (0.2-0.9) 10^3/u L Eos # (Auto) (0.0-0.8) 10^3/u L Baso # (Auto) (0.0-0.1) 10^3/u L Nucleated RBC % (a uto) % Nucleated RBCs # /100WBC Sodium (136-145) mmol/L Potassium (3.5-5.1) mmol/L Chloride (98-107) mmol/L Carbon Dioxide (22-29) mmol/L Anion Gap (5-19) BUN (8-23) mg/dL Creatinine (0.5-0.9) mg/dL GFR Calculation Glucose (65-115) mg/dL Calculated Osmolal ity (285-295) mOsm/k g Calcium (8.5-10.5) mg/dL Total Bilirubin (0.15-1.2) mg/dL AST (0-32) U/L ALT (0-33) U/L Alkaline Phosphata se (35-105) IU/L Troponin T Baselin e (0-10) ng/L Troponin T 120 Min [place] 15.95 H (0-10) ng/L Delta Troponin T -0.05 L (0-10) ABS# Total Protein (6.6-8.7) g/dL Albumin (3.5-5.2) g/dL Globulin (1.3-4.6) g/dL TSH (0.27-4.20) uIU/ mL Free T4 1.29 (0.82-1.77) ng/d L Urine Color (Yellow) Urine Appearance (CLEAR) Urine pH (5-7) Ur Specific Gravit y (1.005-1.030) Urine Protein (Negative) Urine Glucose (UA) (Normal) Urine Ketones (Negative) Urine Blood (Negative) Urine Nitrate (Negative) Urine Bilirubin (Negative) Urine Urobilinogen (Negative) mg/dL Ur Leukocyte Kay ase (Negative) SARS-CoV-2 Ag (Rap id) Negative (Negative) 01/27/21 Range/Units 18:40 WBC (4.0-10.0) 10^3/ uL RBC (4.1-5.3) 10^6/u L Hgb (11.5-15.3) g/dL Hct (37.0-47.0) % MCV (81-99) fl MCH (28.0-34.0) pg MCHC (30.0-36.0) g/dL RDW (12.1-15.1) % Plt Count (130-400) 10^3/c mm MPV (7.4-10.4) fL Neut % (Auto) % Lymph % (Auto) % [place] % (Auto) % Eos % (Auto) % Baso % (Auto) % Neut # (Auto) (1.8-7.7) 10^3/u L Lymph # (Auto) (0.8-4.8) 10^3/u L [place] # (Auto) (0.2-0.9) 10^3/u L Eos # (Auto) (0.0-0.8) 10^3/u L Baso # (Auto) (0.0-0.1) 10^3/u L Nucleated RBC % (a uto) % Nucleated RBCs # /100WBC Sodium (136-145) mmol/L Potassium (3.5-5.1) mmol/L Chloride (98-107) mmol/L Carbon Dioxide (22-29) mmol/L Anion Gap (5-19) BUN (8-23) mg/dL Creatinine (0.5-0.9) mg/dL GFR Calculation Glucose (65-115) mg/dL Calculated Osmolal ity (285-295) mOsm/k g Calcium (8.5-10.5) mg/dL Total Bilirubin (0.15-1.2) mg/dL AST (0-32) U/L ALT (0-33) U/L Alkaline Phosphata se (35-105) IU/L Troponin T Baselin e (0-10) ng/L Troponin T 120 Min [place] (0-10) ng/L Delta Troponin T (0-10) ABS# Total Protein (6.6-8.7) g/dL Albumin (3.5-5.2) g/dL Globulin (1.3-4.6) g/dL TSH (0.27-4.20) uIU/ mL Free T4 (0.82-1.77) ng/d L Urine Color Yellow (Yellow) Urine Appearance Clear (CLEAR) Urine pH 7 (5-7) Ur Specific Gravit y 1.005 (1.005-1.030) Urine Protein Neg (Negative) Urine Glucose (UA) Norm (Normal) Urine Ketones Negative (Negative) Urine Blood Neg (Negative) Urine Nitrate Negative (Negative) Urine Bilirubin Neg (Negative) Urine Urobilinogen Norm (Negative) mg/dL Ur Leukocyte Kay ase Negative (Negative) SARS-CoV-2 Ag (Rap id) (Negative) Imaging Data^: CT Head: Attestation: I personally reviewed and interpreted this imaging study as follows: Radiologist's impression: [address] [address] [address] Scan Report Signed Patient: Carrie Winston Unit #: [id number] 7 : 1935 Age/Sex: 85 / F ADM Date: 01/27/21 Loc: ER Room/Bed: Attending Dr: Ordering Provider/Ordering MD: Charlie Bowen MD Date of Service: 01/27/21 Procedure(s): CT head wo con* [id number] Accession Number(s): [id number] Report Number: [id number] PROCEDURE INFORMATION: Exam: CT Head Without Contrast Exam date and time: 01/27/2021 4:26 PM Age: 85 years old Clinical indication: Patient HX: Dizziness - carotid stent placement 11/30; Additional info: Dizzy TECHNIQUE: Imaging protocol: Computed tomography of the head without contrast. Radiation optimization: All CT scans at this facility use at least one of these dose optimization techniques: automated exposure control; mA and/or kV adjustment per patient size (includes targeted exams where dose is matched to clinical indication); or iterative reconstruction. COMPARISON: CT head wo con* [id number] 11/09/2020 1:46 PM RADIATION DOSE METRICS: Total DLP (mGy-cm): 735.77 FINDINGS: Brain: There is mild cortical atrophy. Low-density changes in the white matter are consistent with nonspecific small vessel chronic ischemic change. There is no intracranial mass, hemorrhage or edema. Small calcified meningioma in the right parietal region not significantly changed. There is a small lacunar infarct right caudate, chronic in appearance but new compared with 11/09/2020. Intracranial hemorrhage demonstrated on 11/09/2020 has resolved. Cerebral ventricles: No ventriculomegaly. Paranasal sinuses: Visualized sinuses are unremarkable. No fluid levels. Mastoid air cells: Visualized mastoid air cells are well aerated. Bones/joints: Unremarkable. No acute fracture. Soft tissues: Unremarkable. CT/CT head wo con* [id number] IMPRESSION: 1. 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 2. No acute finding 3. Prior hemorrhage has resolved. Radiation Dose CTDIVOL = (mGy): DLP = 735.77 (mGy-cm) Dictated By: Herbert Mccoy Signed By: Herbert Mccoy Signed Date/Time: 01/27/211815 DD/ [address]: Radiologist's impression: [address] [address] [address] Scan Report Signed Patient: Carrie Winston Unit #: [id number] 7 : 1935 Age/Sex: 85 / F ADM Date: 01/27/21 Loc: ER Room/Bed: Attending Dr: Ordering Provider/Ordering MD: Charlie Bowen MD Date of Service: 01/27/21 Procedure(s): CT angio headneck* [id number] Accession Number(s): [id number] Report Number: [id number] PROCEDURE INFORMATION: Exam: CT Angiography Head With Contrast, Arteriography Exam date and time: 01/27/2021 4:26 PM Age: 85 years old Clinical indication: Dizziness and giddiness; Prior surgery; Surgery date: 1-6 months; Surgery type: Carotid stent; Patient HX: C/O dizziness; Additional info: Dizzy, recent stent placement TECHNIQUE: Imaging protocol: Computed tomography angiography of the head with contrast. Exam focused on the arteries. 3D rendering (Not supervised by radiologist): MIP and/or 3D reconstructed images were created by the technologist. Radiation optimization: All CT scans at this facility use at least one of these dose optimization techniques: automated exposure control; mA and/or kV adjustment per patient size (includes targeted exams where dose is matched to clinical indication); or iterative reconstruction. Contrast material: OMNI 350; Contrast volume: 75 ml; Contrast route: INTRAVENOUS (IV); COMPARISON: CT angio headneck* [id number] 10/31/2020 7:15 PM RADIATION DOSE METRICS: Total DLP (mGy-cm): 1174.68 FINDINGS: ANTERIOR CIRCULATION: Right internal carotid artery: Unremarkable. Intracranial segment is patent with no significant stenosis. No aneurysm. Right middle cerebral artery: Unremarkable. No occlusion or significant stenosis. No aneurysm. Right anterior cerebral artery: Unremarkable. No occlusion or significant stenosis. No aneurysm. Left internal carotid artery: Unremarkable. Intracranial segment is patent with no significant stenosis. No aneurysm. Left middle cerebral artery: Unremarkable. No occlusion or significant stenosis. No aneurysm. Left anterior cerebral artery: Unremarkable. No occlusion or significant stenosis. No aneurysm. POSTERIOR CIRCULATION: Right vertebral artery: Unremarkable. No occlusion or significant stenosis. No aneurysm. Left vertebral artery: Unremarkable. No occlusion or significant stenosis. No aneurysm. Basilar artery: Unremarkable. No occlusion or significant stenosis. No aneurysm. Right posterior cerebral artery: There is origin of the right posterior cerebral artery. The right P1 segment is small, not changed from previous. Left posterior cerebral artery: Unremarkable. No occlusion or significant stenosis. No aneurysm. Brain: There is small calcified meningioma in the right posterior parietal region. Cerebral ventricles: No ventriculomegaly. Bones/joints: Unremarkable. No acute fracture. Soft tissues: Unremarkable. IMPRESSION: There is no major vascular occlusion or stenosis in the intracranial circulation. No aneurysm is identified. PROCEDURE INFORMATION: Exam: CT Angiography Neck With Contrast Exam date and time: 01/27/2021 4:26 PM Age: 85 years old Clinical indication: Dizziness and giddiness; Prior surgery; Surgery date: 1-6 months; Surgery type: Carotid stent; Patient HX: C/O dizziness; Additional info: Dizzy, recent stent placement TECHNIQUE: Imaging protocol: Computed tomography angiography of the neck with contrast. 3D rendering (Not supervised by radiologist): MIP and/or 3D reconstructed images were created by the technologist. Radiation optimization: All CT scans at this facility use at least one of these dose optimization techniques: automated exposure control; mA and/or kV adjustment per patient size (includes targeted exams where dose is matched to clinical indication); or iterative reconstruction. Contrast material: OMNI 350; Contrast volume: 75 ml; Contrast route: INTRAVENOUS (IV); COMPARISON: CT angio headneck* [id number] 10/31/2020 7:15 PM Discharge Plan Discharge Patient Disposition: Home Clinical Impression: Pre-syncope, Shortness of breath, Nausea Condition: Stable Prescriptions: No Action latanoprost [Xalatan] 0.005 % drops 1 drp ophthalmic (eye) BEDTIME RF: 0 pantoprazole 40 mg tablet,delayed release (DR/EC) 40 mg PO QAM RF: 0 metoprolol tartrate 100 mg tablet 100 mg PO Q12H RF: 0 atorvastatin 40 mg Tablet 40 mg PO QAM RF: 0 clopidogrel 75 mg tablet 75 mg PO QAM RF: 0 multivitamin Liquid 5 ml PO DAILY RF: 0 levothyroxine 75 mcg tablet 75 mcg PO QAM RF: 0 Vitamin D3 125 mcg (5,000 unit) Tablet 125 mcg PO .FOUR TIMES A WEEK RF: 0 Pradaxa 110 mg capsule 110 mg PO BID RF: 0 Discharge Orders: Discharge ED (Routine); Ordered 01/27/21 Ordered By: Nuris Mckenzie Referrals: Bonnie Gonzalez MD [Primary Care Provider] - 1-3 days Discharge Diet: Usual diet Discharge Activity: Resume usual activity Patient Instructions: Dyspnea (ED), Near Syncope (ED) Activity Restrictions/Additional Instructions: Thank you for visiting the emergency department. You were seen and evaluated for what sounds like presyncope. Please follow-up with your primary care provider. Please return to the emergency department for anything that you are concerned about and feel needs emergency department evaluation. Coding Level of Care Code ED Upholsterer Outside for Darion Juárez
--- NOTE | 2021-01-27 16:26 | CTR_ITS ---
PROCEDURE INFORMATION: Exam: CT Head Without Contrast Exam date and time: 01/27/2021 4:26 PM Age: 85 years old Clinical indication: Patient HX: Dizziness - carotid stent placement 11/30; Additional info: Dizzy TECHNIQUE: Imaging protocol: Computed tomography of the head without contrast. Radiation optimization: All CT scans at this facility use at least one of these dose optimization techniques: automated exposure control; mA and/or kV adjustment per patient size (includes targeted exams where dose is matched to clinical indication); or iterative reconstruction. COMPARISON: CT head wo con* [id number] 11/09/2020 1:46 PM RADIATION DOSE METRICS: Total DLP (mGy-cm): 735.77 FINDINGS: Brain: There is mild cortical atrophy. Low-density changes in the white matter are consistent with nonspecific small vessel chronic ischemic change. There is no intracranial mass, hemorrhage or edema. Small calcified meningioma in the right parietal region not significantly changed. There is a small lacunar infarct right caudate, chronic in appearance but new compared with 11/09/2020. Intracranial hemorrhage demonstrated on 11/09/2020 has resolved. Cerebral ventricles: No ventriculomegaly. Paranasal sinuses: Visualized sinuses are unremarkable. No fluid levels. Mastoid air cells: Visualized mastoid air cells are well aerated. Bones/joints: Unremarkable. No acute fracture. Soft tissues: Unremarkable. CT/CT head wo con* [id number] IMPRESSION: 1. 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 2. No acute finding 3. Prior hemorrhage has resolved. Radiation Dose CTDIVOL = (mGy): DLP = 735.77 (mGy-cm)
--- NOTE | 2021-01-27 16:26 | CTR_ITS ---
PROCEDURE INFORMATION: Exam: CT Angiography Head With Contrast, Arteriography Exam date and time: 01/27/2021 4:26 PM Age: 85 years old Clinical indication: Dizziness and giddiness; Prior surgery; Surgery date: 1-6 months; Surgery type: Carotid stent; Patient HX: C/O dizziness; Additional info: Dizzy, recent stent placement TECHNIQUE: Imaging protocol: Computed tomography angiography of the head with contrast. Exam focused on the arteries. 3D rendering (Not supervised by radiologist): MIP and/or 3D reconstructed images were created by the technologist. Radiation optimization: All CT scans at this facility use at least one of these dose optimization techniques: automated exposure control; mA and/or kV adjustment per patient size (includes targeted exams where dose is matched to clinical indication); or iterative reconstruction. Contrast material: OMNI 350; Contrast volume: 75 ml; Contrast route: INTRAVENOUS (IV); COMPARISON: CT angio headneck* [id number] 10/31/2020 7:15 PM RADIATION DOSE METRICS: Total DLP (mGy-cm): 1174.68 FINDINGS: ANTERIOR CIRCULATION: Right internal carotid artery: Unremarkable. Intracranial segment is patent with no significant stenosis. No aneurysm. Right middle cerebral artery: Unremarkable. No occlusion or significant stenosis. No aneurysm. Right anterior cerebral artery: Unremarkable. No occlusion or significant stenosis. No aneurysm. Left internal carotid artery: Unremarkable. Intracranial segment is patent with no significant stenosis. No aneurysm. Left middle cerebral artery: Unremarkable. No occlusion or significant stenosis. No aneurysm. Left anterior cerebral artery: Unremarkable. No occlusion or significant stenosis. No aneurysm. POSTERIOR CIRCULATION: Right vertebral artery: Unremarkable. No occlusion or significant stenosis. No aneurysm. Left vertebral artery: Unremarkable. No occlusion or significant stenosis. No aneurysm. Basilar artery: Unremarkable. No occlusion or significant stenosis. No aneurysm. Right posterior cerebral artery: There is origin of the right posterior cerebral artery. The right P1 segment is small, not changed from previous. Left posterior cerebral artery: Unremarkable. No occlusion or significant stenosis. No aneurysm. Brain: There is small calcified meningioma in the right posterior parietal region. Cerebral ventricles: No ventriculomegaly. Bones/joints: Unremarkable. No acute fracture. Soft tissues: Unremarkable. IMPRESSION: There is no major vascular occlusion or stenosis in the intracranial circulation. No aneurysm is identified. PROCEDURE INFORMATION: Exam: CT Angiography Neck With Contrast Exam date and time: 01/27/2021 4:26 PM Age: 85 years old Clinical indication: Dizziness and giddiness; Prior surgery; Surgery date: 1-6 months; Surgery type: Carotid stent; Patient HX: C/O dizziness; Additional info: Dizzy, recent stent placement TECHNIQUE: Imaging protocol: Computed tomography angiography of the neck with contrast. 3D rendering (Not supervised by radiologist): MIP and/or 3D reconstructed images were created by the technologist. Radiation optimization: All CT scans at this facility use at least one of these dose optimization techniques: automated exposure control; mA and/or kV adjustment per patient size (includes targeted exams where dose is matched to clinical indication); or iterative reconstruction. Contrast material: OMNI 350; Contrast volume: 75 ml; Contrast route: INTRAVENOUS (IV); COMPARISON: CT angio headneck* [id number] 10/31/2020 7:15 PM RADIATION DOSE METRICS: Total DLP (mGy-cm): 1174.68 FINDINGS: Right common carotid artery: No stenosis. No dissection or occlusion. Right internal carotid artery: There is a stent in the proximal right internal carotid artery. The distal stent as a tapered shape with slight waist in the stent with luminal diameter of approximately 2.6 to 3 mm resulting in 20-30% stenosis as measured according to the NASCET criteria. This is much improved compared with the previous study. Right external carotid artery: No occlusion or stenosis of the origin. Left common carotid artery: No stenosis. No dissection or occlusion. Left internal carotid artery: There is some mild atherosclerotic plaque at the left carotid bifurcation without stenosis as measured according to NASCET criteria not changed from previous. Left external carotid artery: No occlusion or stenosis of the origin. Right vertebral artery: No stenosis. No dissection or occlusion. Left vertebral artery: No stenosis. No dissection or occlusion. Soft tissues: Normal. No significant soft tissue swelling. Bones/joints: No acute fracture. CT/CT angio headneck* [id number] IMPRESSION: There is a new patent stent in the proximal right internal carotid artery with improvement in the internal carotid artery stenosis. REFERENCES: NASCET CRITERIA. The degree of internal carotid artery stenosis is based on NASCET criteria. Normal is no stenosis. Mild is less than 50% stenosis. Moderate is 50-69% stenosis. Severe is 70% to 99% stenosis. Total occlusion is no detectable patent lumen. Radiation Dose CTDIVOL = (mGy): DLP = 1174.68~1174.68 (mGy-cm)
[2021-01-27 16:34] LABS: Basophils # 0.1 10^3/uL (0.0-0.1); Basophils % 0.6 %; Eosinophils # 0.1 10^3/uL (0.0-0.8); Eosinophils % 1.1 %; Hematocrit 36.7 % (37.0-47.0); Hemoglobin 11.5 g/dL (11.5-15.3); Lymphocytes # 1.8 10^3/uL (0.8-4.8); Lymphocytes % 19.5 %; Mean Corpuscular HGB Conc 31.3 g/dL (30.0-36.0); Mean Corpuscular Hemoglobin 27.8 pg (28.0-34.0); Mean Corpuscular Volume 88.6 fl (81-99); Mean Platelet Volume 10.8 fL (7.4-10.4); Monocytes # 0.8 10^3/uL (0.2-0.9); Monocytes % 8.3 %; Neutrophils % 70.3 %; Nucleated Red Blood Cells % 0 %; Platelet Count 242 10^3/cmm (130-400); Red Blood Count 4.14 10^6/uL (4.1-5.3); Red Cell Distribution Width 12.9 % (12.1-15.1); White Blood Count 9.1 10^3/uL (4.0-10.0)
[2021-01-27 17:03] LABS: Alanine Aminotransferase 16 U/L (0-33); Albumin Level 4.3 g/dL (3.5-5.2); Alkaline Phosphatase 53 IU/L (35-105); Anion Gap 17.3 (5-19); Aspartate Amino Transferase 19 U/L (0-32); Blood Urea Nitrogen 16 mg/dL (8-23); Calcium 9.6 mg/dL (8.5-10.5); Carbon Dioxide 25 mmol/L (22-29); Chloride 101 mmol/L (98-107); Globulin 2.7 g/dL (1.3-4.6); Glucose 117 mg/dL (65-115); Osmolality Calculated 290 mOsm/kg (285-295); Potassium 4.3 mmol/L (3.5-5.1); Sodium 139 mmol/L (136-145); Thyroid Stimulating Hormone 7.92 uIU/mL (0.27-4.20); Total Bilirubin 0.4 mg/dL (0.15-1.2)
[2021-01-27 17:04] LABS: Troponin(5th) Baseline 16 ng/L (0-10)
[2021-01-27] MEDS: sodium chloride 0.9% 500 ML 999 ML IV (17:25)
[2021-01-27] MEDS: ondansetron 2 mg/ML SDV 2 mL 4 MG IVP (17:25)
[2021-01-27] MEDS: iohexol 350 mg/mL 100 mL Btl IV (17:46)
[2021-01-27 17:54] LABS: Free T4 Free Thyroxine 1.29 ng/dL (0.82-1.77)
[2021-01-27 18:03] LABS: Troponin 5 2HR 15.95 ng/L (0-10)
[2021-01-27 18:17] LABS: Troponin 5 2HR Delta -0.05 ABS# (0-10)
[2021-01-27 18:49] LABS: Add Urine Microscopic? NO; Charge for UA Resulting for Rev
[2021-01-27 18:54] LABS: SARS Covid-2 Antigen Negative (Negative)
[2021-01-27 18:57] LABS: Bilirubin Urine Neg (Negative); Blood Urine Neg (Negative); Glucose Urine UA Norm (Normal); Ketones Urine Negative (Negative); Leukocyte Esterase Urine Negative (Negative); Nitrate Urine Negative (Negative); Protein Urine Neg (Negative); Specific Gravity, Urine 1.005 (1.005-1.030); Urine Appearance Clear (CLEAR); Urine Color Yellow (Yellow); Urobilinogen Urine Norm (Negative); pH Urine 7 (5-7)
[2021-01-27 19:22] VITALS: BP 126/66; PULSE 72; RESP 18; O2SAT 95
== END 2021-01-27 19:23 | disposition home or self-care (01) ==
PROVIDERS: Emergency Medicine; Emergency Provider Emergency Medicine; PCP Internal Medicine
DX: R55 Syncope and collapse (principal); R06.02 Shortness of breath; R11.0 Nausea; Z79.02 Long term (current) use of antithrombotics/antiplatelets; Z20.822 Contact with and (suspected) exposure to COVID-19
CPT/HCPCS: 70450; 70496; 70498; 80053; 81003; 84439; 84443; 84484; 85025; 87426; 96374; 99283; J2405; J7040; Q9967

== ENCOUNTER 2021-08-08 12:02 | Outpatient (CLI) | payer MEDICARE, OTHER, SELFPAY ==
--- NOTE | 2021-08-08 12:12 | MM_ITS ---
WS: [id number] BILATERAL 3D TOMOSYNTHESIS DIGITAL DIAGNOSTIC MAMMOGRAPHY WITH CAD CLINICAL INFORMATION: BLOODY NIPPLE DISCHARGE HISTORY: Bloody nipple discharge. RIGHT breast soreness. COMPARISON: None. TECHNIQUE: Bilateral CC, MLO, and ML views. FINDINGS: The breasts are composed of heterogeneous fibroglandular density, which can limit the detection of sm all underlying mass lesions. Diffuse skin thickening overlying the areola. Dense underlying parenchym al tissue. Ultrasound is pending of this area. Vascular calcification. Punctate and lucent centered benign calcifications RIGHT breast. Focal asymme tric density upper inner LEFT breast measuring 9 mm also will be evaluated with ultrasound. ULTRASOUND BREAST BILATERAL TECHNIQUE: Ultrasound bilateral breast focused area of concern. CLINICAL INFORMATION: BLOODY NIPPLE DISCHARGE FINDINGS: Ultrasound RIGHT breast at the areola. Multiple dilated ducts with intraductal debris deep to the are melia. Dense hypoechoic subareolar tissue with underlying dilated ducts. Dense subareolar tissue measur es 1.8 x 0.7 cm with vascularity. Underlying mass is not excluded in this area. Eccentric area of inc reased echogenicity may represent area of bleeding or hematoma. Diffuse skin thickening. Recommend further evaluation with biopsy. Ultrasound-guided biopsy could be attempted but may be diff icult due to subareolar location. Also consider breast surgery consultation/biopsy. Ultrasound LEFT breast 12-6 clock position demonstrates normal underlying parenchymal tissue. No susp icious lesions in the LEFT breast. MM/[place] [id number] IMPRESSION: Recommend ultrasound-guided biopsy or surgical biopsy of the RIGHT breast subareolar tissue. See discussion above. BI-RADS: 4-Suspicious Finding-Biopsy Should Be Considered FOLLOW UP: US Guided Biopsy Recommended
== END 2021-08-08 12:03 | disposition home or self-care (01) ==
LOC: RADSHAW 12:09
PROVIDERS: PCP Internal Medicine; Visit Provider Nurse Practitioner Family
DX: N64.52 Nipple discharge (principal)
CPT/HCPCS: 76642; 77062

== ENCOUNTER → 2021-09-05 14:58 | Outpatient (BNVA) | payer MEDICARE, OTHER, SELFPAY | PROVIDERS: PCP Internal Medicine; Visit Provider Internal Medicine Cardiovascular Disease | DX: I10 Essential (primary) hypertension (principal); Z86.79 Personal history of other diseases of the circulatory system; E78.00 Pure hypercholesterolemia, unspecified; I25.10 Atherosclerotic heart disease of native coronary artery without angina pectoris; I77.9 Disorder of arteries and arterioles, unspecified; R00.1 Bradycardia, unspecified; Z86.73 Personal history of transient ischemic attack (TIA), and cerebral infarction without residual deficits | CPT/HCPCS: 93005; 99214 ==

== ENCOUNTER → 2021-09-08 09:01 | Outpatient (BNVA) | payer MEDICARE, OTHER, SELFPAY | PROVIDERS: PCP Internal Medicine; Referring Provider Nurse Practitioner Family; Visit Provider Surgery | DX: N64.52 Nipple discharge (principal) | CPT/HCPCS: 99204 ==

== ENCOUNTER 2021-09-18 08:32 | Day surgery (SDC) | payer MEDICARE, OTHER, SELFPAY ==
[2021-09-15 12:05] VITALS: BMI 20.6
[2021-09-18] VITALS (7 sets, daily range): BP systolic 149–180; BP diastolic 85–100; PULSE 60–71; RESP 16–18; TEMP 36.1–36.4; O2SAT 96–100
--- NOTE | 2021-09-18 08:53 | P.HP_ITS ---
Same Day Surgery H&P Indication for Procedure/HPI DATE OF PROCEDURE: September 18, 2021 CHIEF COMPLAINT/INDICATIONFOR SURGICAL PROCEDURE: Right breast lumpectomy PREOP DIAGNOSIS: right breast mass PLANNED PROCEDURE: Operation Date: 09/18/21 12:20 Proposed Procedures p Breast Biopsy 23436/ nipple discharge N64.52(Right) - Carlos Quach MD Medications/Allergies* Home Medications Medication Instructions Recorded Confirmed Type latanoprost 0.005 % eye drops 1 drp OPHTHALMIC (EYE) BEDTIME 09/05/20 09/15/21 History (Xalatan) metoprolol tartrate 100 mg tablet 100 mg PO Q12H 09/05/20 09/15/21 History pantoprazole 40 mg tablet,delayed 40 mg PO QAM 09/05/20 09/15/21 History release clopidogrel 75 mg tablet 75 mg PO QAM 11/09/20 09/15/21 History cholecalciferol (vitamin D3) 125 125 mcg PO .FOUR TIMES A WEEK 01/27/21 09/15/21 History mcg (5,000 unit) tablet (Vitamin D3) dabigatran etexilate 110 mg 110 mg PO BID 01/27/21 09/15/21 History capsule (Pradaxa) levothyroxine 75 mcg tablet 75 mcg PO QAM 01/27/21 09/15/21 History multivitamin 5 ml PO DAILY 01/27/21 09/15/21 History atorvastatin 40 mg tablet 20 mg PO BID tab 09/05/21 09/15/21 History zolpidem 5 mg tablet 2.5 mg PO .hs PRN tab 09/05/21 09/15/21 History Allergies/Adverse Reactions Allergy/AdvReac Type Severity Reaction Status Date / Time No Known Allergies Allergy Verified 09/15/21 12:03 Pertinent History/Comorbid Conditions* Medical History (Updated 09/08/21 @ 15:05 by Letty Garcia MD) Carcinoma of tonsil Carotid artery disease CVA (cerebral vascular accident) GERD (gastroesophageal reflux disease) Glaucoma History of atrial fibrillation Hypercholesteremia Status post chemoradiation for tonsillar ca Surgical History (Updated 09/08/21 @ 09:43 by Carlos Quach MD) History of colonoscopy S/P appendectomy Status post carotid surgery right carotid stent Family History (Updated 09/05/21 @ 15:22 by Vi Miguel RN) Diabetes Daughter CAD (coronary artery disease) Father Mother Sister Alzheimer disease Mother Dementia Mother Hypercholesteremia Father Mother Chronic kidney disease (CKD) Father Myocardial infarct Father Cancer Sister Denies family history of Clotting disorder Suicide Anesthesia complication Bleeding disorder Lung disease Stroke Social History Smoking and tobacco status: never smoked Pertinent Exam Findings alert, oriented x 3 and regular rate & rhythm Recommendations Surgery/Procedure today Coding Level of Care Code Acute Rfid Systems Engineer for Darion Juárez
[2021-09-18] MEDS: sodium chloride 0.9% 1,000 ML 30 ML IV (09:26)
--- NOTE | 2021-09-18 10:41 | ANES.PREANE2 ---
Pre-Anesthetic Assessment Height/Weight: Height 1.65 m Weight 56.245 kg Temp Pulse Resp Pulse Ox 97.5 F L 67 18 97 09/18/21 09:10 09/18/21 09:10 09/18/21 09:10 09/18/21 09:10 Preop Diagnosis: right breast mass Operation Date: 09/18/21 12:20 Proposed Procedures p Breast Biopsy 55072/ nipple discharge N64.52(Right) - Carlos Quach MD Familial anesthetic complications: none Was Beta Lavern taken within 24 hours: Yes Was Clonidine taken within 24 hours: N/A Last intake: Intake Last Liquid Date 09/17/21 Last Liquid Time 23:00 Last Solid Date 09/17/21 Last Solid Time 23:00 Social No alcohol and No tobacco Exam alert, oriented x 3, clear to auscultation bilaterally and regular rate & rhythm Airway Submandibular: within normal limits Cervical ROM: within normal limits Mallampati: Class II Dentition: full CV/HEM Atrial Fibrillation GI Gastroesophageal Reflux Disease Metabolic Hyperlipidemia and Thyroid Disease Neuropsych Cerebrovascular Accident Anesthetic Plan ASA status: 3 Anesthesia: Choice Medications/Allergies Home Medications Medication Instructions Recorded Confirmed Last Taken Type latanoprost 0.005 % eye drops 1 drp OPHTHALMIC (EYE) BEDTIME 09/05/20 09/18/21 09/17/21 History (Xalatan) metoprolol tartrate 100 mg tablet 100 mg PO Q12H 09/05/20 09/18/21 09/17/21 History pantoprazole 40 mg tablet,delayed 40 mg PO QAM 09/05/20 09/18/21 09/17/21 History release clopidogrel 75 mg tablet 75 mg PO QAM 11/09/20 09/15/21 09/13/21 History cholecalciferol (vitamin D3) 125 125 mcg PO .FOUR TIMES A WEEK 01/27/21 09/18/21 09/17/21 History mcg (5,000 unit) tablet (Vitamin D3) dabigatran etexilate 110 mg 110 mg PO BID 01/27/21 09/18/21 09/16/21 History capsule (Pradaxa) levothyroxine 75 mcg tablet 75 mcg PO QAM 01/27/21 09/18/21 09/17/21 History multivitamin 5 ml PO DAILY 01/27/21 09/18/21 09/17/21 History atorvastatin 40 mg tablet 20 mg PO BID tab 09/05/21 09/18/21 09/17/21 History zolpidem 5 mg tablet 2.5 mg PO .hs PRN tab 09/05/21 09/18/21 Unknown History Allergies Allergy/AdvReac Type Severity Reaction Status Date / Time No Known Allergies Allergy Verified 09/18/21 09:07 Current Medications Generic Name Dose Route Start Last Admin Trade Name Freq PRN Reason Stop Dose Admin Sodium Chloride 1,000 mls @ 30 mls/hr 09/18/21 08:45 09/18/21 09:26 Sodium Chloride 0.9% IV 09/19/21 08:44 30 mls/hr .Q24H MATEUSZ Administration PFSH Anesthesia Medical History Carcinoma of tonsil Carotid artery disease CVA (cerebral vascular accident) GERD (gastroesophageal reflux disease) Glaucoma History of atrial fibrillation Hypercholesteremia Status post chemoradiation for tonsillar ca Surgical History History of colonoscopy S/P appendectomy Status post carotid surgery right carotid stent Family History Father Myocardial infarct Hypercholesteremia CAD (coronary artery disease) Chronic kidney disease (CKD) Mother Hypercholesteremia Alzheimer disease Dementia CAD (coronary artery disease) Sister CAD (coronary artery disease) Cancer Daughter Diabetes Denies family history of Clotting disorder Suicide Anesthesia complication Bleeding disorder Lung disease Stroke Social History Smoking and tobacco status: never smoked Data Anesthesia Cardiac Studies: Echocardiogram Ultrasound 10/06/20 Cardiac Event Monitor 06/28/21
[2021-09-18] MEDS: lidocaine 2% INJ 20 mL INJECTION (11:09)
--- NOTE | 2021-09-18 11:34 | P.OP_ITS ---
Operative Report Date of procedure: September 18, 2021 Pre-op diagnosis: BI-RADS 4 right breast mass Bloody nipple discharge Post-op diagnosis: same Procedure done: Right breast lumpectomy with excision of nipple areolar complex Specimens removed/disposition: Right nipple areolar complex lumpectomy, short stitch superior, long stitch l ateral Surgeon: Carlos Quach Anesthesia: General Condition: stable Disposition: PACU Procedure: The patient was taken to the patient was taken to the operating room and LMA was placed under general anesthesia after IV antibiotic had been administered. The right breast was prepped and draped in a sterile manner. 2% lidocaine with 0.25% Marcaine was infiltrated at the site of planned surgery. Using a 15 blade elliptical incision was made around the right nipple areolar complex using a 15 blade, subcutaneous tissue was used to divide the subcutaneous tissue and the nipple areolar complex including the underlying breast tissue was excised and sent to pathology. Using 2-0 silk suture short stitch was placed superiorly and a long stitch was placed laterally. The lumpectomy cavity was irrigated with saline, hemostasis ensured with cautery and the subcutaneous tissue was approximated in layers using interrupted 3-0 Vicryl suture and skin was closed using running subcuticular 4-0 Monocryl suture and Dermabond. Pressure dressings were applied. The patient was extubated and transferred to recovery room in stable condition.
--- NOTE | 2021-09-18 13:34 | ANE.PACU2 ---
Inpatient post-anesthesia follow up: Airway intact: Yes Vital signs: Temperature 97.0 F Pulse Rate 71 Respiratory Rate 18 Blood Pressure 175/86 Pulse Oximetry 96 Oxygen Delivery Me thod Room Air Oxygen Flow Rate Fraction of Inspir ed Oxygen Hydration adequate: Yes Nausea and vomiting: No Pain level: 2 Mental status: Baseline
[2021-09-21 09:29] LABS: Miscellaneous Test See Scanned Lab Rpt
== END 2021-09-18 13:10 | disposition home or self-care (01) ==
PROVIDERS: PCP Internal Medicine; Visit Provider Surgery
PROC: (CPT 19301; principal; 2021-09-18 12:10)
DX: C50.011 Malignant neoplasm of nipple and areola, right female breast (principal); N63.10 Unspecified lump in the right breast, unspecified quadrant; N64.52 Nipple discharge; E78.00 Pure hypercholesterolemia, unspecified
CPT/HCPCS: 19301; 88307; 88361; 88374; J0690; J2704; J3010; J3490; J7030

== ENCOUNTER → 2021-10-03 08:54 | Outpatient (BNVA) | payer MEDICARE, OTHER, SELFPAY | PROVIDERS: PCP Internal Medicine; Visit Provider Surgery | DX: C50.911 Malignant neoplasm of unspecified site of right female breast (principal) | CPT/HCPCS: 99213 ==

== ENCOUNTER 2021-10-05 07:35 | Day surgery (SDC) | payer MEDICARE, OTHER, SELFPAY ==
[2021-10-04 11:02] VITALS: BMI 20.6
[2021-10-05] VITALS (8 sets, daily range): BP systolic 151–182; BP diastolic 84–109; PULSE 63–75; RESP 8–18; TEMP 36.6–37.1; O2SAT 96–100
--- NOTE | 2021-10-05 07:56 | ECG_ITS ---
[facility] Test Date: 2021-10-05 Pat Name: Carrie Winston Department: Room: Gender: Female Drama Critic: : 1935 Requested By: Shawna Ward Order Number: [id number] Renetta MD: Kurtis Henry M.D. Measurements Intervals [place] Rate: 66 P: 81 WV: 181 QRS: -9 QRSD: 104 T: 19 QT: 395 QTc: 417 Interpretive Statements SINUS RHYTHM WITH MARKED SINUS ARRHYTHMIA POSSIBLE LEFT ATRIAL ENLARGEMENT [-0.1mV P-WAVE IN V1/V2] INCOMPLETE RIGHT BUNDLE BRANCH BLOCK [90+ ms QRS DURATION, TERMINAL R IN V1/V2, 40+ ms S IN I/aVL/V4/V5/V6] Compared to ECG 11/09/2020 15:56:28 Incomplete right bundle-branch block now present Sinus bradycardia no longer present T-wave abnormality no longer present Electronically Signed On 10-05-2021 22:27:45 CDT by Kurtis Henry M.D. [id number]
--- NOTE | 2021-10-05 08:02 | ANES.PREANE2 ---
Pre-Anesthetic Assessment Height/Weight: Height 1.65 m Weight 56.245 kg Temp Pulse Resp BP Pulse Ox 97.8 F 69 15 182/109 96 10/05/21 07:51 10/05/21 07:51 10/05/21 07:51 10/05/21 07:51 10/05/21 07:51 Preop Diagnosis: Right breast cancer Operation Date: 10/05/21 09:05 Proposed Procedures p reexcision margins of right breast 97485/N64.52(Right) - Carlos Quach MD Familial anesthetic complications: None Was Beta Lavern taken within 24 hours: Yes Was Clonidine taken within 24 hours: N/A Last intake: Intake Last Liquid Date 10/04/21 Last Liquid Time 21:00 Last Solid Date 10/04/21 Last Solid Time 21:00 Social No alcohol and No tobacco Exam alert, oriented x 3, clear to auscultation bilaterally and regular rate & rhythm (irregular) Airway Mallampati: Class II Dentition: full Pulmonary None reported CV/HEM Atrial Fibrillation and Hypertension GI Gastroesophageal Reflux Disease Metabolic Hyperlipidemia and Thyroid Disease [facility] [place] breast cancer Anesthetic Plan ASA status: 3 Anesthesia: MAC Risk of > 500 ml blood loss (7ml/kg in children): No Medications/Allergies Home Medications Medication Instructions Recorded Confirmed Last Taken Type latanoprost 0.005 % eye drops 1 drp OPHTHALMIC (EYE) BEDTIME 09/05/20 10/05/21 10/04/21 History (Xalatan) metoprolol tartrate 100 mg tablet 100 mg PO Q12H 09/05/20 10/05/21 10/04/21 20:00 History pantoprazole 40 mg tablet,delayed 40 mg PO QAM 09/05/20 10/05/21 10/04/21 History release clopidogrel 75 mg tablet 75 mg PO QAM 11/09/20 10/04/21 10/02/21 History cholecalciferol (vitamin D3) 125 125 mcg PO .FOUR TIMES A WEEK 01/27/21 10/04/21 09/17/21 History mcg (5,000 unit) tablet (Vitamin D3) dabigatran etexilate 110 mg 110 mg PO BID 01/27/21 10/05/21 10/02/21 History capsule (Pradaxa) levothyroxine 75 mcg tablet 75 mcg PO QAM 0910/05/21 10/05/21 History multivitamin 5 ml PO DAILY 01/27/21 10/05/21 10/04/21 History atorvastatin 40 mg tablet 20 mg PO BID tab 09/05/21 10/05/21 10/04/21 History zolpidem 5 mg tablet 2.5 mg PO .hs PRN tab 09/05/21 10/04/21 Unknown History docusate sodium 100 mg capsule 100 mg PO BID #30 cap 09/18/21 10/05/21 10/04/21 Rx (Colace) hydrocodone 5 mg-acetaminophen 325 1 tab PO Q6H PRN #20 tab 09/18/21 10/04/21 Unknown Rx mg tablet Allergies Allergy/AdvReac Type Severity Reaction Status Date / Time No Known Allergies Allergy Verified 10/05/21 07:49 PFSH Anesthesia Medical History (Updated 10/03/21 @ 13:08 by Carlos Quach MD) Breast cancer, right Carcinoma of tonsil Carotid artery disease CVA (cerebral vascular accident) GERD (gastroesophageal reflux disease) Glaucoma History of atrial fibrillation Hypercholesteremia Status post chemoradiation for tonsillar ca Surgical History History of colonoscopy S/P appendectomy Status post carotid surgery right carotid stent Status post right breast lumpectomy (09/18/21) Family History Father Myocardial infarct Hypercholesteremia CAD (coronary artery disease) Chronic kidney disease (CKD) Mother Hypercholesteremia Alzheimer disease Dementia CAD (coronary artery disease) Sister CAD (coronary artery disease) Cancer Daughter Diabetes Denies family history of Clotting disorder Suicide Anesthesia complication Bleeding disorder Lung disease Stroke Social History Smoking and tobacco status: never smoked Data Anesthesia Cardiac Studies: Echocardiogram Ultrasound 10/06/20 Cardiac Event Monitor 06/28/21
[2021-10-05] MEDS: sodium chloride 0.9% 1,000 ML 30 ML IV (08:14)
--- NOTE | 2021-10-05 09:01 | P.HP_ITS ---
Same Day Surgery H&P Indication for Procedure/HPI DATE OF PROCEDURE: October 05, 2021 CHIEF COMPLAINT/INDICATIONFOR SURGICAL PROCEDURE: Right breast lumpectomy PREOP DIAGNOSIS: Right breast cancer PLANNED PROCEDURE: Operation Date: 10/05/21 09:05 Proposed Procedures p reexcision margins of right breast 99525/N64.52(Right) - Carlos Quach MD Medications/Allergies* Home Medications Medication Instructions Recorded Confirmed Type latanoprost 0.005 % eye drops 1 drp OPHTHALMIC (EYE) BEDTIME 09/05/20 10/05/21 History (Xalatan) metoprolol tartrate 100 mg tablet 100 mg PO Q12H 09/05/20 10/05/21 History pantoprazole 40 mg tablet,delayed 40 mg PO QAM 09/05/20 10/05/21 History release clopidogrel 75 mg tablet 75 mg PO QAM 11/09/20 10/04/21 History cholecalciferol (vitamin D3) 125 125 mcg PO .FOUR TIMES A WEEK 01/27/21 10/04/21 History mcg (5,000 unit) tablet (Vitamin D3) dabigatran etexilate 110 mg 110 mg PO BID 01/27/21 10/05/21 History capsule (Pradaxa) levothyroxine 75 mcg tablet 75 mcg PO QAM 01/27/21 10/05/21 History multivitamin 5 ml PO DAILY 01/27/21 10/05/21 History atorvastatin 40 mg tablet 20 mg PO BID tab 09/05/21 10/05/21 History zolpidem 5 mg tablet 2.5 mg PO .hs PRN tab 09/05/21 10/04/21 History Allergies/Adverse Reactions Allergy/AdvReac Type Severity Reaction Status Date / Time No Known Allergies Allergy Verified 10/05/21 07:49 Current Medications: Generic Name Dose Route Start Last Admin Trade Name Freq PRN Reason Stop Dose Admin Sodium Chloride 1,000 mls @ 30 mls/hr 10/05/21 07:45 10/05/21 08:14 Sodium Chloride 0.9% IV 10/06/21 07:44 30 mls/hr .Q24H MATEUSZ Administration Pertinent History/Comorbid Conditions* Medical History (Updated 10/03/21 @ 13:08 by Carlos Quach MD) Breast cancer, right Carcinoma of tonsil Carotid artery disease CVA (cerebral vascular accident) GERD (gastroesophageal reflux disease) Glaucoma History of atrial fibrillation Hypercholesteremia Status post chemoradiation for tonsillar ca Surgical History (Updated 09/18/21 @ 11:34 by Carlos Quach MD) History of colonoscopy S/P appendectomy Status post carotid surgery right carotid stent Status post right breast lumpectomy (09/18/21) Family History (Updated 09/05/21 @ 15:22 by Vi Miguel RN) Diabetes Daughter CAD (coronary artery disease) Father Mother Sister Alzheimer disease Mother Dementia Mother Hypercholesteremia Father Mother Chronic kidney disease (CKD) Father Myocardial infarct Father Cancer Sister Denies family history of Clotting disorder Suicide Anesthesia complication Bleeding disorder Lung disease Stroke Social History Smoking and tobacco status: never smoked Pertinent Exam Findings alert, oriented x 3 and regular rate & rhythm Recommendations Surgery/Procedure today Coding Level of Care Code Acute Save All Operator for Darion Juárez
[2021-10-05] MEDS: lidocaine 2% INJ 20 mL 10 ML INJECTION (09:50)
[2021-10-05] MEDS: ondansetron 2 mg/ML SDV 2 mL 4 MG IVP (10:20)
[2021-10-05] MEDS: HYDROcodone-acetaminophen 5-325 mg Tablet 1 TAB PO (11:01)
--- NOTE | 2021-10-05 14:32 | ANE.PACU2 ---
Inpatient post-anesthesia follow up: Airway intact: Yes Vital signs: Temperature 97.9 F Pulse Rate 68 Respiratory Rate 18 Blood Pressure 178/91 Pulse Oximetry 96 Oxygen Delivery Me thod Room Air Oxygen Flow Rate 6 Fraction of Inspir ed Oxygen Hydration adequate: Yes Nausea and vomiting: No Pain level: 2 Mental status: Baseline
--- NOTE | 2021-10-06 16:39 | P.OP_ITS ---
Operative Report Date of procedure: October 05, 2021 Pre-op diagnosis: Right breast cancer status post right breast lumpectomy with positive inferior and deep margin Post-op diagnosis: same Procedure done: Reexcision of margins from right breast lumpectomy cavity Specimens removed/disposition: 1. Deep margin, outer edge inked 2. Inferior margin outer edge inked Surgeon: Carlos Quach Anesthesia: MAC Condition: stable Disposition: PACU Procedure: The patient was taken to the operating room and placed under MAC after IV antibiotic had been administered. The right breast was prepped and draped in a sterile manner. 2% lidocaine with 0.25% Marcaine was infiltrated around the lumpectomy site. Using a 15 blade the previous surgical incision was opened, 4- 0 Monocryl and 3-0 Vicryl sutures were cut and the lumpectomy cavity was opened. Using Allis clamps, the deep margin was grasped and the shave margin was obtained using electrocautery up to the level of the pectoral fascia and the outer edge was inked and sent to pathology. The inferior margin was then grasped with Allis clamps and using electrocautery, shave margins were obtained and the outer edge was inked and the specimen was sent to pathology in formalin. The wound was irrigated with saline, hemostasis ensured with cautery, the subcutaneous tissues were approximated in layers using interrupted 3-0 Vicryl suture and skin was closed using running subcuticular 4-0 Monocryl suture and Dermabond. The patient was transferred to recovery room in stable condition.
== END 2021-10-05 12:30 | disposition home or self-care (01) ==
PROVIDERS: PCP Internal Medicine; Visit Provider Surgery
PROC: (CPT 19301; principal; 2021-10-05 08:55)
DX: C50.911 Malignant neoplasm of unspecified site of right female breast (principal); I48.91 Unspecified atrial fibrillation; I10 Essential (primary) hypertension; K21.9 Gastro-esophageal reflux disease without esophagitis; E78.5 Hyperlipidemia, unspecified
CPT/HCPCS: 19301; 88307; 93005; J0690; J1100; J2405; J2704; J3490; J7030

== ENCOUNTER → 2021-10-17 10:27 | Outpatient (BNVA) | payer MEDICARE, OTHER, SELFPAY | PROVIDERS: PCP Internal Medicine; Visit Provider Surgery | DX: Z98.890 Other specified postprocedural states (principal) | CPT/HCPCS: 99024 ==

== ENCOUNTER → 2021-12-05 13:38 | Outpatient (BNVA) | payer MEDICARE, OTHER, SELFPAY | PROVIDERS: PCP Internal Medicine; Visit Provider Internal Medicine Cardiovascular Disease | DX: I10 Essential (primary) hypertension (principal); I48.20 Chronic atrial fibrillation, unspecified; I77.9 Disorder of arteries and arterioles, unspecified; Z86.73 Personal history of transient ischemic attack (TIA), and cerebral infarction without residual deficits | CPT/HCPCS: 99214 ==

== ENCOUNTER 2021-12-27 12:41 | Outpatient (CLI) | payer MEDICARE, OTHER, SELFPAY ==
--- NOTE | 2021-12-27 12:56 | USCV_ITS ---
Carrie Winston Age: 86 Gender: F : 1935 Exam Date: 12/27/2021 13:09 Ordering Phys: Letty Garcia MD ([email or web address]) Technologist: Amy Mcnulty [place] [facility] [place]: sob BP: / HR: 58 Rhythm: Sinus Technical Quality: Adequate MEASUREMENTS (Male / Female) Normal Values 2D ECHO LV Diastolic Diameter PLAX 4.4 cm 4.2 - 5.9 / 3.9 - 5.3 cm LV Systolic Diameter PLAX 2.8 cm LV Chamber Size 2.8 cm IVS Diastolic Thickness 0.8 cm 0.6 - 1.0 / 0.6 - 0.9 cm IVS Systolic Thickness 1.5 cm LVPW Diastolic Thickness 0.9 cm 0.6 - 1.0 / 0.6 - 0.9 cm LVPW Systolic Thickness 1.5 cm RV Chamber Size 2.9 cm LVOT Diameter 2.0 cm LV Ejection Fraction 2D Teich 67.3 % LV Ejection Fraction MOD 2C 55.4 % LV Ejection Fraction 2C AL 55.2 % LA Diameter 2.9 cm LA Width 3.0 cm LA Height 4.3 cm RA Width 4.6 cm RA Height 5.6 cm Aorta at Sinotubular Diameter 2.6 cm IVC Diameter 1.4 cm M-MODE Aortic Annulus Diameter 3.1 cm LA Ao Ratio MM 0.9 MV E Point Septal Separation 0.2 cm DOPPLER AV Peak Velocity 82.0 cm/s LVOT Peak Velocity 66.0 cm/s AV Area Cont Eq vti 2.6 cm squared AV Area Cont Eq pk 2.6 cm squared MV Area PHT 2.4 cm squared Mitral E to A Ratio 2.4 MV E' Velocity 41.5 cm/s Mitral E to MV E' Ratio 8.4 Mitral E to LV E' Lateral Ratio 10.3 Mitral E to LV E' Septal Ratio 7.2 TR Peak Velocity 209.4 cm/s TR Peak Gradient 17.5 mmHg TR Mean Velocity 147.4 cm/s TR Mean Gradient 10.0 mmHg TR Velocity Time Integral 66.3 cm TV Peak E Velocity 47.0 cm/s Right Atrial Pressure 3.0 mmHg Pulmonary Artery Systolic Pressu 20.5 mmHg PV Peak Velocity 38.0 cm/s RV Acceleration Time 0.1 s RV Ejection Time 0.4 s RV AcT/ET 0.4 FINDINGS Left Ventricle Normal left ventricular size, systolic function and wall thickness, with no regional wall motion abnormalities. Left ventricular ejection fraction is estimated at 60 %. Normal diastolic function. Right Ventricle Normal right ventricular size and systolic function. Right ventricular systolic pressure 25 mmHg. Right Atrium Mildly increased right atrial size. Left Atrium Mildly increased left atrial size. Mitral Valve Moderate mitral annular calcification. Mildly thickened mitral valve. No mitral valve stenosis. Mild mitral valve regurgitation. Aortic Valve Mildly thickened trileaflet aortic valve. No aortic valve stenosis. Mild aortic valve regurgitation. Tricuspid Valve Structurally normal tricuspid valve. No tricuspid valve stenosis. Mild tricuspid valve regurgitation. Pulmonic Valve Pulmonic valve not well visualized. No pulmonary valve stenosis. Trace pulmonary valve regurgitation. Pericardium No pericardial effusion. Aorta Normal size aortic root and proximal ascending aorta. IVC Normal IVC dimension. CONCLUSIONS 1. Normal left ventricular size, systolic function and wall thickness, with no regional wall motion abnormalities. Left ventricular ejection fraction is estimated at 60 %. Normal diastolic function. 2. Mild aortic valve regurgitation. 3. Mild mitral and tricuspid valve regurgitation. 4. Mild biatrial enlargement. 5. When compared to previous study dated 10/06/2020, mitral valve regurgitation seems to have decreased. Letty Garcia MD (Electronically Signed) Final Date: 03 January 2022 12:34 S
--- NOTE | 2021-12-27 13:30 | USCV_ITS ---
Carrie Winston Age: 86 Gender: F : 1935 Exam Date: 12/27/2021 13:29 Ordering Phys: Letty Garcia MD ([email or web address]) Technologist: CARIDAD Exam Location: [facility] – [place] Indication: stent rt ica Risk Factors: Unknown Previous Vascular Surgery: Rt. ICA Stent Right Brachial BP: / Left Brachial BP: / Right Left Velocity (cm/s) Spectral Plaque Velocity (cm/s) Spectral Plaque Syst/Diast Broadening Syst/Diast Broadening 48.50/ 14.10 Prox CCA 65.70 / 14.50 57.50/ 15.50 Mid CCA 61.10 / 17.70 33.30/ 8.50 Hetro Distal CCA 61.80 / 14.50 Hetro 52.60/ 10.50 Prox ICA 71.00 / 24.30 Hetro 39.40/ 13.10 Mid ICA 63.80 / 25.00 74.90/ 22.30 Distal ICA 63.80 / 25.00 106.90 ECA 59.80 Hetro 1.30 ICA/CCA 1.16 Bi- Vertebral Antegrade directiona l 15.20/ 2.70 cm/s 44.70/ 17.70 cm/s [place] Subclavian Bi 33.90 77.60 FINDINGS Minimal plaques at the left bifurcation Minimal plaques at the right common carotid artery Patent stented segment of the ICA within normal velocities and Doppler flow signals CONCLUSIONS 1. Patent stented segment of the right ICA with a normal flow pattern. 2. Minimal plaques at the left bifurcation and internal carotid artery, suggesting less than 50% stenosis 3. Minimal diffuse plaque in the right common carotid artery. 4. No significant stenosis in the external carotid, subclavian or vertebral arteries, based on the above findings Dr Suzy Kang MD [facility] (Electronically Signed) Final Date: 28 December 2021 21:56 S
== END 2021-12-27 12:42 | disposition home or self-care (01) ==
PROVIDERS: PCP Internal Medicine; Visit Provider Internal Medicine Cardiovascular Disease
DX: R06.02 Shortness of breath (principal); I10 Essential (primary) hypertension; Z86.79 Personal history of other diseases of the circulatory system; Z98.890 Other specified postprocedural states; I08.3 Combined rheumatic disorders of mitral, aortic and tricuspid valves; Z95.5 Presence of coronary angioplasty implant and graft
CPT/HCPCS: 93306; 93880

== ENCOUNTER → 2022-06-05 14:40 | Outpatient (BNVA) | payer MEDICARE, OTHER, SELFPAY | PROVIDERS: PCP Internal Medicine; Visit Provider Internal Medicine Cardiovascular Disease | DX: I10 Essential (primary) hypertension (principal); I65.23 Occlusion and stenosis of bilateral carotid arteries; E78.00 Pure hypercholesterolemia, unspecified; I77.9 Disorder of arteries and arterioles, unspecified; Z86.73 Personal history of transient ischemic attack (TIA), and cerebral infarction without residual deficits | CPT/HCPCS: 99214; Q3014 ==

== ENCOUNTER 2023-03-14 09:06 | Outpatient (CLI) | payer MEDICARE, OTHER, SELFPAY ==
--- NOTE | 2023-03-14 09:15 | USCV_ITS ---
Carrie Winston Age: 87 Gender: F : 1935 Exam Date: 03/14/2023 09:19 Ordering Phys: Letty Garcia MD ([email or web address]) Technologist: SRI [place] [facility] [place] [place]: right carotid stent history Risk Factors: None Previous Vascular Surgery: R CEA w/ stent Right Brachial BP: / Left Brachial BP: / Right Left Velocity (cm/s) Spectral Plaque Velocity (cm/s) Spectral Plaque Syst/Diast Broadening Syst/Diast Broadening 80.50/ 14.30 Prox CCA 66.80 / 10.90 39.60/ 7.80 Mid CCA 55.90 / 13.20 59.00/ 10.10 Distal CCA 39.60 / 7.80 20.30/ 2.70 Min None Prox ICA 51.80 / 11.20 49.70/ 9.60 Mid ICA 60.90 / 18.10 55.00/ 15.00 Distal ICA 66.20 / 22.60 100.20 ECA 83.30 0.68 ICA/CCA 0.99 Antegrade Vertebral Antegrade 18.70/ 3.90 cm/s 52.80/ 10.10 cm/s Tri Subclavian Tri 49.70 94.00 CONCLUSIONS Right ICA stenosis <50%. Stent is patent Left ICA stenosis <50%. Moderate atheromatous plaque left carotid bulb/ICA. Intimal thickening in the common carotid arteries and internal carotid arteries bilaterally. Normal antegrade Doppler flow noted in the right vertebral artery. Normal antegrade Doppler flow noted in the left vertebral artery. Rufino Nieto MD (Electronically Signed) Final Date: 14 March 2023 16:46 S
== END 2023-03-14 09:07 | disposition home or self-care (01) ==
LOC: RAD 09:06
PROVIDERS: PCP Internal Medicine; Visit Provider Internal Medicine Cardiovascular Disease
DX: I65.23 Occlusion and stenosis of bilateral carotid arteries (principal); Z95.828 Presence of other vascular implants and grafts
CPT/HCPCS: 93880

== ENCOUNTER 2023-05-22 11:25 | Observation (INO) | payer MEDICARE, OTHER, SELFPAY ==
[2023-05-22] VITALS (55 sets, daily range): BP systolic 80–141; BP diastolic 50–106; PULSE 56–144; RESP 14–26; TEMP 36.5–36.8; O2SAT 82–99
--- NOTE | 2023-05-22 11:36 | ECG_ITS ---
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 Measurements Intervals Bone Gap Rate: 122 P: 0 MT: 0 QRS: -1 QRSD: 90 T: 44 QT: 319 QTc: 455 Interpretive Statements ATRIAL FIBRILLATION WITH RAPID VENTRICULAR RESPONSE POSSIBLE RIGHT VENTRICULAR CONDUCTION DELAY [RSR (QR) IN V1/V2] SEPTAL MYOCARDIAL INFARCTION , OF INDETERMINATE AGE [40+ ms Q WAVE IN V1/V2] Compared to ECG 10/05/2021 08:17:19 Myocardial infarct finding now present Sinus rhythm no longer present Sinus arrhythmia no longer present Incomplete right bundle-branch block no longer present Electronically Signed On 05-22-2023 18:57:04 [employer] by Kurtis Henry M.D. [id number]
[2023-05-22 12:06] LABS: Basophils % 0.3 %; Eosinophils % 0.4 %; Hematocrit 42.3 % (36-47); Lymphocytes # 1.2 10^3/uL (0.8-4.8); Mean Corpuscular HGB Conc 32.6 g/dL (30-55); Mean Corpuscular Hemoglobin 29.2 pg (27-33); Mean Corpuscular Volume 89.4 fl (85-98); Mean Platelet Volume 10.7 fL (7.4-10.4); Monocytes # 0.5 10^3/uL (0.2-0.9); Monocytes % 4.9 %; Neutrophils # 8.12 10^3/uL (1.8-7.7); Neutrophils % 82.2 %; Nucleated Red Blood Cells % 0 %; Platelet Count 214 10^3/cmm (157-399); Red Blood Count 4.73 10^6/uL (3.85-5.65); Red Cell Distribution Width 13.6 % (12.1-15.1); White Blood Count 9.87 10^3/uL (3.29-11.43)
[2023-05-22] MEDS: lidocaine 2% viscous 15 mL UDC 10 ML MUCOUS MEM (12:12)
--- NOTE | 2023-05-22 12:12 | W.ED.WEAKNES ---
HPI - Weakness General: Chief complaint: Weakness Stated complaint: Weakness Time Seen by Provider: 05/22/23 11:26 History of Present Illness: 87 yo f presents by EMS from home. She has hx of hypertension, CAD, chronic Afib on dabigatran, carotid artery stenosis s/p right carotid endarterectomy, gastroesophageal reflux disease, hypothyroidism, moderate tricuspid valve regurgitation, moderate to severe mitral valve regurgitation and moderate aortic valve regurgitation, and reported history of throat cancer that makes it hard/painful to swallow. EMS reports that the family wanted her to be evaluated because she has not been eating and drinking very much due to the throat cancer. She is gone so long with poor nutrition that she has become nauseated and cannot keep much down. She gets dizzy with standing and her heart has been racing. They were worried about her atrial fibrillation. EMS reports afebrile, blood glucose 211, no concerns during transport. 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 It was nonoperative so they had to do a lot of radiation. Since that time she has had swallowing dysfunction and pain. Over the last few years as she is gotten older her appetite has waned. Her daughters arrive short time later and tell me that she really has no desire to eat and she is lost weight over the last 2 years. She does not want to have a feeding tube. At this time she is not ready for hospice. The daughters are trying to work with her to come up with a menu that satisfies what she feels she could keep down and also provide some nutrition. She is already had a swallow study from speech therapist. Associated symptoms: Denies chest pain, chills, dysuria, fever(s), headache(s), syncope or vomiting Review of Systems General: Reports: 10 or more systems reviewed and unremarkable except in HPI and below Const: Denies: fever(s), chills or body aches Eyes: Denies: change in vision Card: Reports: palpitations, irregular heart rhythm and lightheadedness; Denies: chest pain, edema, swelling of feet/ankles, syncope or orthopnea Resp: Denies: dyspnea or productive cough GI: Denies: abdominal pain, vomiting or diarrhea : Denies: flank pain, dysuria or urinary frequency Musc: Denies: neck pain, back pain, extremity pain or extremity swelling Skin/Breast: Denies: rash or erythema Neuro: Denies: headache(s), numbness in extremities or lack of coordination PFSH ED PFSH: Medical History Breast cancer, right Carcinoma of tonsil Carotid artery disease CVA (cerebral vascular accident) GERD (gastroesophageal reflux disease) Glaucoma History of atrial fibrillation Hypercholesteremia Status post chemoradiation for tonsillar ca Surgical History History of colonoscopy S/P appendectomy Status post carotid surgery right carotid stent Status post right breast lumpectomy (09/18/21) re excision margin -10/05/21 Family History Father Myocardial infarct Hypercholesteremia CAD (coronary artery disease) Chronic kidney disease (CKD) Mother Hypercholesteremia Alzheimer disease Dementia CAD (coronary artery disease) Sister CAD (coronary artery disease) Cancer Daughter Diabetes Social History Smoking and tobacco/nicotine status: never used tobacco/nicotine Physical Exam Narrative: EXAM NARRATIVE: This is a pleasant, conversational 87-year-old female who does appear underweight and malnourished. She does have an irregular tachycardia on examination. Examination of her mouth reveals that she has a partial and other dental work that may also impair her ability to chew. She appears to have either early thrush or some denture adhesive on her soft palate. The uvula and bridge of the soft palate appear normal. There is nothing that I can see that would be obstructing. She has normal alertness and orientation. She has no focal neurologic problems. She is deconditioned and appears to be losing muscle mass. She ambulates without a walker, cane, or any help at her baseline but has felt a little weak lately. Const: COMMON NORMALS: no limitations and alert EXAM LIMITATIONS: no altered mental status HENMT: COMMON NORMALS: normocephalic, atraumatic and external ears normal HEAD & SCALP: normocephalic and atraumatic EXTERNAL EAR: Yes external ears normal MOUTH: no muffled voice Eye: COMMON NORMALS: EOMs intact bilaterally, conjunctivae normal and no scleral icterus CONJUNCTIVA: Yes conjunctivae normal Neck/C-Spine: GENERAL: Yes normal visual inspection and Yes trachea midline Resp: COMMON NORMALS: normal respiratory effort, No use of accessory muscles and clear to auscultation bilaterally AUSCULTATION: clear to auscultation bilaterally GI: COMMON NORMALS: Soft to palpation and non-tender PALPATION: Yes Soft to palpation and No Guarding due to palpation present (GI) Neuro: COMMON NORMALS: moves all extremities, no focal motor deficits and no sensory deficits noted SENSORIUM/ORIENTATION: Yes alert SPEECH: speech normal Psych: COMMON NORMALS: mental status grossly normal, Normal thought process present, cooperative, normal affect and speech normal SPEECH: Yes normal speech THOUGHT PROCESS: Normal thought process present Skin: COMMON NORMALS: no rashes or lesions noted, turgor normal and no jaundice GENERAL SKIN EXAM: no rashes or lesions noted and turgor normal Course Vital Signs: Vital signs: Vital Signs Temperature 97.7 F 05/22/23 11:37 Pulse Rate 62 05/22/23 14:00 Respiratory Rate 19 H 05/22/23 14:00 Blood Pressure 94/65 05/22/23 14:02 Pulse Oximetry 96 05/22/23 14:00 Oxygen Delivery Me thod Room Air 05/22/23 13:30 MDM - Weakness Medical Decision Making 87-year-old female with chronic anorexia and weight loss which has led to dehydration and atrial fibrillation with rapid ventricular response as well as underlying malnutrition. She is not going to do a feeding tube and is not ready for hospice. Therefore she is working with her 2 daughters who are in the room to come up with a way to stimulate her appetite and provide a nutritious menu that will prevent her from having exacerbations like this in the future. They are willing to try Marinol as they have done everything they can think of over the last year to try and stimulate her appetite without success. She takes metoprolol and Pradaxa for her A-fib. Our plan is to check her electrolytes, make sure her kidney and liver is working okay, check her hemoglobin and MCV, and provide her with some IV fluids, see if we can rate control her atrial fibrillation, and then discharge with Zofran, nystatin swish and swallow, Marinol trial, continue pantoprazole. UPDATE 1330 I was called to the patient's room at around 1320 p.m. The patient had a syncopal episode. Telemetry showing atrial fibrillation with a slow ventricular response in the 30s. Patient became slightly diaphoretic. Radial pulse decreased and she became hypotensive. This occurred about 15 to 20 minutes after Cardizem 20 mg IV. Family reports this has happened to her multiple times through the years but they have never had her on telemetry during the episodes. I gave her 0.5 mg of atropine and put her in Trendelenburg position. Within a few minutes her heart rate was in the 80s and blood pressure systolic was 90 with a low diastolic. We are going to give her 1 L of IV fluid. Patient woke up and feels nauseated. Were going to give Zofran to alleviate some of the vagal response. I spoke to both of the daughters. They said they have been observing episodes like this for a couple of years. They never have sought care for it because the and the patient were so used to it that they just managed it at home. However, now that we can see that she is having excessive AV derrick blockade, it is difficult to determine what the best course of action is. If we do not give her AV derrick blockade she is in A-fib with RVR. On the other hand, it appears that she has a propensity to have excessive AV derrick blockade with medication leading to these syncopal episodes. I suppose, the idea of a pacemaker could be considered. However, daughter states that she is averse to any procedures and would not be interested in this. Therefore, I discussed with him the option of admitting to the hospital on telemetry to get an idea of what her average heart rate is and how many variations she is having. I do not want to leave her in A-fib RVR but at the same time she cannot be excessively bradycardic. Daughters agree with this plan and asked that she have a nutrition consult as well. Her labs demonstrate a normal white blood cell count, normal hemoglobin, slightly elevated BUN, slightly depressed bicarb suggesting metabolic acidosis, minimal transaminitis, mildly elevated TSH. EKG repeat 1236 showed afib, ventricular rate 66, incomplete RBBB, no conceruning ST elevations UPDATE 1400 Blood pressure and heart rate are hovering. I went into the room and it was 105 systolic. 10 minutes later is 94/65. Heart rate is averaging around 62. I have not had to give any further doses of atropine. I did place her on 2 and half liters of oxygen by nasal cannula and she is satting 97%. She is still groggy and drowsy. I did confer with the patient's daughters and they tell me that she was very adamant about her advanced directive being do not perform CPR or intubate. We will be admitting to the CSU. I discussed the case with Dr. Quintero for admission to cardiac stepdown. Chest x-ray reveals some pulmonary edema, possibly a right pleural effusion. At this time we are going to continue to monitor the patient's blood pressure before beginning diuresis. She probably had some flash edema due to the syncope combined with need to give her rapid resuscitation with 1 L of IV fluids on a pressure bag after receiving a previous 1 L of normal saline for dehydration prior to the event. Lab Data 05/22/23 11:58 05/22/23 11:58 Laboratory Results WBC 9.87 10^3/uL (3.29-11.43) 05/22/23 11:58 RBC 4.73 10^6/uL (3.85-5.65) 05/22/23 11:58 Hgb 13.80 g/dL (11.27-16.99) 05/22/23 11:58 Hct 42.3 % (36-47) 05/22/23 11:58 MCV 89.4 fl (85-98) 05/22/23 11:58 MCH 29.2 pg (27-33) 05/22/23 11:58 MCHC 32.6 g/dL (30-55) 05/22/23 11:58 RDW 13.6 % (12.1-15.1) 05/22/23 11:58 Plt Count 214 10^3/cmm (157-399) 05/22/23 11:58 MPV 10.7 fL (7.4-10.4) H 05/22/23 11:58 Neut % (Auto) 82.2 % 05/22/23 11:58 Lymph % (Auto) 12.0 % 05/22/23 11:58 [place] % (Auto) 4.9 % 05/22/23 11:58 Eos % (Auto) 0.4 % 05/22/23 11:58 Baso % (Auto) 0.3 % 05/22/23 11:58 Neut # (Auto) 8.12 10^3/uL (1.8-7.7) H 05/22/23 11:58 Lymph # (Auto) 1.2 10^3/uL (0.8-4.8) 05/22/23 11:58 [place] # (Auto) 0.5 10^3/uL (0.2-0.9) 05/22/23 11:58 Eos # (Auto) 0.0 10^3/uL (0.0-0.8) 05/22/23 11:58 Baso # (Auto) 0.0 10^3/uL (0.0-0.1) 05/22/23 11:58 Nucleated RBC % (auto) 0 % 05/22/23 11:58 Nucleated RBCs # 0.0 /100WBC 05/22/23 11:58 Sodium 136 mmol/L (136-145) 05/22/23 11:58 Potassium 4.6 mmol/L (3.5-5.1) 05/22/23 11:58 Chloride 104 mmol/L (98-107) 05/22/23 11:58 Carbon Dioxide 21 mmol/L (22-29) L 05/22/23 11:58 Anion Gap 15.6 (5-19) 05/22/23 11:58 BUN 25 mg/dL (8-23) H 05/22/23 11:58 Creatinine 0.9 mg/dL (0.5-0.9) 05/22/23 11:58 GFR Calculation Not Reportable 05/22/23 11:58 Glucose 141 mg/dL (65-115) H 05/22/23 11:58 Calculated Osmolality 289 mOsm/kg (285-295) 05/22/23 11:58 Calcium 9.6 mg/dL (8.5-10.5) 05/22/23 11:58 Phosphorus 3.1 mg/dL (2.5-4.5) 05/22/23 11:58 Magnesium 1.7 mg/dL (1.7-2.3) 05/22/23 11:58 Total Bilirubin 0.8 mg/dL (0.15-1.2) 05/22/23 11:58 AST 34 U/L (0-32) H 05/22/23 11:58 ALT 39 U/L (0-33) H 05/22/23 11:58 Alkaline Phosphatase 57 U/L (35-105) 05/22/23 11:58 Total Protein 6.8 g/dL (6.6-8.7) 05/22/23 11:58 Albumin 3.7 g/dL (3.5-5.2) 05/22/23 11:58 Globulin 3.1 g/dL (1.3-4.6) 05/22/23 11:58 TSH 4.69 uIU/mL (0.27-4.20) H 05/22/23 11:58 XR interpretation done by ED provider, pending radiology final review ED provider radiology interpretation(s): CXR 1 view obtained after the syncope--showing pulmonary edema--she has had a total of 2L of NS and she's placed on 2.5LPM NC. Critical Care Time Critical Care Time: Critical Care Time: Yes Total Critical Care Time: 45 Attestation: See MDM Discharge Plan Discharge Patient Disposition: Admitted As Inpatient Clinical Impression: Atrial fibrillation with rapid ventricular response, Atrial fibrillation with slow ventricular response, Syncope, cardiogenic, Malnutrition, DNR (do not resuscitate), DNI (do not intubate), Odynophagia, Pulmonary edema Condition: Stable Coding Level of Care Code ED Mobile Device Developer for Darion Juárez
[2023-05-22] MEDS: sodium chloride 0.9% 1,000 ML 999 ML IV ×2 (12:15→18:04)
[2023-05-22 12:33] LABS: Alanine Aminotransferase 39 U/L (0-33); Albumin Level 3.7 g/dL (3.5-5.2); Alkaline Phosphatase 57 U/L (35-105); Anion Gap 15.6 (5-19); Aspartate Amino Transferase 34 U/L (0-32); Blood Urea Nitrogen 25 mg/dL (8-23); Calcium 9.6 mg/dL (8.5-10.5); Carbon Dioxide 21 mmol/L (22-29); Chloride 104 mmol/L (98-107); Globulin 3.1 g/dL (1.3-4.6); Glucose 141 mg/dL (65-115); Magnesium 1.7 mg/dL (1.7-2.3); Osmolality Calculated 289 mOsm/kg (285-295); Phosphorus 3.1 mg/dL (2.5-4.5); Potassium 4.6 mmol/L (3.5-5.1); Sodium 136 mmol/L (136-145); Thyroid Stimulating Hormone 4.69 uIU/mL (0.27-4.20); Total Bilirubin 0.8 mg/dL (0.15-1.2); Total Protein 6.8 g/dL (6.6-8.7)
[2023-05-22] MEDS: dilTIAZem 5 mg/mL SDV 5 mL 20 MG IVP (13:08)
[2023-05-22] MEDS: atropine 0.1 mg/mL Syr 10 mL 0.5 MG IVP (13:22)
--- NOTE | 2023-05-22 13:31 | XRR_ITS ---
PROCEDURE INFORMATION: Exam: XR Chest Exam date and time: 05/22/2023 1:50 PM Age: 87 years old Clinical indication: Dyspnea; Patient HX: Weakness, lightheaded, nausea all x 2 wks. No history of recent trauma or surgery is provided. TECHNIQUE: Imaging protocol: Radiologic exam of the chest. 1image(s) are provided. Views: 1 view. COMPARISON: CR XR chest 1V portable [id number] 11/09/2020 2:30 PM COMPARISON MORE: CR XR chest 1V portable [id number] 10/31/2020 6:38 PM COMPARISON MORE: CT angio headneck* [id number] 01/27/2021 5:34 PM FINDINGS: Tubes, catheters and devices: There is some transcutaneous pacer pad appearance. Lungs: There is some apical fibrous type scarring right more so than left similar overall. No lobar consolidation is appreciated. There is however some patchy ground-glass attenuation with mid to lower lung zone distribution predominance bilaterally. There is some subsegmental atelectasis versus post inflammatory reticulonodular appearance demonstrated. This could also represent some nodular coalescence. This appears slightly more pronounced for example on the right Pleural spaces: There is some costophrenic angle blunting more so on the right appearing slightly increased. No pneumothorax is appreciated. There is skin fold, fissure averaging demonstrated. Heart/Mediastinum: The cardiomediastinal silhouette is borderline in size.This can be seen with central averaging as well as derrick enlargement.No cardiac decompensation is appreciated. This can also be seen with cardiomegaly and/or pericardial fluid with pulmonary hypertension. Diaphragm: The hemidiaphragms are symmetric. Bones/joints: Osseous alignment is maintained. No interval displaced fracture or dislocation is appreciated.There is slightly decreased bone mineralization overall. There are some chronic appearing rib deformities. Soft tissues: No radiopaque foreign body or subcutaneous emphysema is appreciated. Other findings: No other significant interval changes are appreciated. XR/XR chest 1V portable [id number] IMPRESSION: There is some ground-glass attenuation of the lower lung zones suggestive of early multifocal inflammation. Some early interstitial edema could also present in this fashion along with enlarged cardiac silhouette. Consider echocardiography.
[2023-05-22] MEDS: ondansetron 2 mg/ML SDV 2 mL 4 MG IVP (13:40)
--- NOTE | 2023-05-22 13:47 | PC.NURSE ---
at approx 1320 this nurse observed bradycardia and hypotension on pt monitor. this nurse assessed pt who appeared to be lethargic and unresponsive. Dr. Vasquez was notified by another nurse. pt was placed in trendelenburg position, placed adult zoll pads on patient, placed second 20G IV. pt oxygen saturation 90% room air, respirations bradypneic. per Dr. Vasquez this nurse administered 0.5mg atropine and started 1L NS bolus. at approx 1328 pt became responsive to verbal stimuli. crash cart at bedside.
--- NOTE | 2023-05-22 14:07 | PC.NURSE ---
pt placed on 2L NC per Dr. Vasquez
--- NOTE | 2023-05-22 14:52 | PC.NURSE ---
pt refused pain medication for back. states she will be fine .
--- NOTE | 2023-05-22 15:48 | PC.NURSE ---
medications delayed d/t not being verified at this time.
--- NOTE | 2023-05-22 16:20 | PC.NURSE ---
Medication Delay: medications still unverified at this time 1621, unable to administer
[2023-05-22 16:29] LABS: Iron 43 ug/dL (37-145); Percent Saturation 14.2 % (20-50); Total Iron Binding Capacity 302 mcg/dl; Unsaturated Iron Binding 259 ug/dL (112-347)
[2023-05-22 16:45] LABS: Vitamin B12 719 pg/mL (232-1245)
--- NOTE | 2023-05-22 16:45 | PC.NURSE ---
Medication delay: medications still unverified at this time, unable to administer dextrose/sod chloride fluids and metoprolol.
--- NOTE | 2023-05-22 16:52 | P.HP_ITS ---
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 As per the daughters patient has had poor oral intake because of difficulty to swallow, poor taste and appetite ongoing since her chemoradiation therapy but has gotten worse over last few years more so over the last 1 week when she is not able to get out of bed. In the ER she was found to be in A-fib with RVR for which she was given 20 of IV Cardizem after which she had a syncopal event with heart rate dropping down to 30s and hypotension which was managed with 1 mg of IV atropine and monitor fluid bolus. Examination patient was in A-fib with heart rate of 70 bpm, awake and alert on 2 L of oxygen supplementation with daughters at bedside with blood pressure 130 over 80 mmHg. Review of Systems 2 General: Reports: 10 or more systems reviewed and unremarkable except in HPI and below Const: Denies: fever(s), chills, body aches, change in appetite, change in weight, malaise, night sweats, diaphoresis, change in sleep pattern, daytime sleepiness or snoring Eyes: Denies: change in vision, blurry vision, photophobia, eye discomfort or eye discharge ENMT: Denies: throat pain, enlarged tonsils, hoarseness, mouth pain, oral sores, dry mouth, tinnitus, nasal congestion or post nasal drip Card: Denies: chest pain, palpitations, irregular heart rhythm, edema, swelling of feet/ankles, lightheadedness, syncope, pre-syncope, dyspnea on exertion, orthopnea, leg pain with exertion or acrocyanosis Resp: Denies: dyspnea, productive cough, non-productive cough, wheezing, stridor, pain on inspiration, change in phlegm color, hemoptysis or chest congestion GI: Denies: abdominal pain, nausea, vomiting, hematemesis, coffee ground emesis, dysphagia, heartburn, diarrhea, constipation, bloating, GI cramping, change in bowel habits, pain on defecation, hematochezia or melena : Denies: flank pain, dysuria, urinary frequency, urinary urgency, urinary hesitancy, nocturia or hematuria Musc: Denies: neck pain, back pain, extremity pain, joint pain, joint swelling, joint redness, joint stiffness or limited range of motion Neuro: Denies: headache(s), numbness in extremities, weakness in extremities, sensory changes, lack of coordination, difficulty walking, frequent falls, dizziness, vertigo, confusion, Slurred speech present, difficulty communicating thoughts or seizure-like activity Psych: Denies: anxiety, depression, mood swings, panic attacks, hopelessness or irritability Endo: Denies: polyuria, polydipsia, tired all the time, cold intolerance, excessive sweating, flushing or heat intolerance Marco A/Lymph: Denies: easy bruising or easy bleeding All/Imm: Denies: tongue swelling, facial swelling or acute wheezing Medications/Allergies Home Medications Medication Instructions Recorded Confirmed Last Taken Type latanoprost 0.005 % eye drops 1 drp ophthalmic (eye) BEDTIME 09/05/20 05/22/23 05/21/23 History (Xalatan) metoprolol tartrate 100 mg tablet 100 mg PO Q12H 09/05/20 05/22/23 05/21/23 History pantoprazole 40 mg tablet,delayed 40 mg PO QA 09/05/20 05/22/23 05/21/23 History release clopidogrel 75 mg tablet 75 mg PO QA 11/09/20 05/22/23 05/21/23 History cholecalciferol (vitamin D3) 125 125 mcg PO .FOUR TIMES A WEEK 01/27/21 05/22/23 05/21/23 History mcg (5,000 unit) tablet (Vitamin D3) dabigatran etexilate 110 mg 110 mg PO BID 01/27/21 05/22/23 05/21/23 History capsule (Pradaxa) levothyroxine 75 mcg tablet 75 mcg PO QAM 01/27/21 05/22/23 05/21/23 History atorvastatin 20 mg tablet 20 mg PO DAILY 12/05/21 05/22/23 05/21/23 History Allergies Allergy/AdvReac Type Severity Reaction Status Date / Time No Known Allergies Allergy Verified 10/17/21 10:29 PFSH Acute 2 PFSH: Medical History (Updated 05/22/23 @ 17:06 by Raheem Avila MD) DNI (do not intubate) DNR (do not resuscitate) Bloody discharge from right nipple Breast cancer, right Carotid artery disease GERD (gastroesophageal reflux disease) CVA (cerebral vascular accident) 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 Glaucoma Hypercholesteremia History of atrial fibrillation Surgical History Status post right breast lumpectomy (09/18/21) re excision margin -10/05/21 Status post carotid surgery right carotid stent S/P appendectomy History of colonoscopy Family History Father Myocardial infarct Hypercholesteremia CAD (coronary artery disease) Chronic kidney disease (CKD) Mother Hypercholesteremia Alzheimer disease Dementia CAD (coronary artery disease) Sister CAD (coronary artery disease) Cancer Daughter Diabetes Social History Smoking and tobacco/nicotine status: never used tobacco/nicotine Vitals/I&O/Wt Last Vital Signs Temp 97.7 F 05/22/23 11:37 Pulse 78 05/22/23 15:40 Resp 18 05/22/23 15:40 BP 129/75 05/22/23 15:40 Pulse Ox 93 05/22/23 15:40 O2 Del Method Room Air 05/22/23 13:30 05/22/23 05/22/23 05/22/23 06:59 14:59 22:59 Intake Total 1000 / 1000 Balance 1000 / 1000 Weight last 48 hrs Weight 54.431 kg Physical Exam 2 Narrative: General: No acute distress, AO x3, Anorexic, malnourished, dehydrated HEENT: PERRLA, pupils bilaterally equal and reactive Chest: Normal vesicular breath sounds, no added sounds, equal good air entry bilaterally CVS: S1-S2 irregularly irregular, pansystolic murmur at apex radiating to anterior axillary line, pansystolic murmur at fourth intercostal space, no tachycardia, no gallops, no rubs Abdomen: Soft, nontender, no organomegaly, bowel sounds present Neuro: No focal deficits, no facial deformity, AO x3, power 5/5 in all limbs Data 05/22/23 11:58 05/22/23 11:58 A&P Assessment and plan (1) Atrial fibrillation with rapid ventricular response: On presentation to the ER was rapid ventricular response most likely in setting of dehydration. Resolved now. Did end up having bradycardia after IV Cardizem push. For now continue with home dose of metoprolol and Pradaxa. Telemetry. Continue to monitor heart rate. (2) Atrial fibrillation with slow ventricular response: (3) Anorexia: Most likely in setting of poor oral intake secondary to difficulty to swallow along with poor taste from history of chemoradiation therapy. Start on full liquid diet for now along with protein shakes. Dietary consultation. Speech therapy modified barium swallow to rule out mechanical reasons for difficulty swallowing. Patient would also benefit from endoscopy as an outpatient to rule out chronic gastritis/GERD. Protonix 40 mg daily along with Carafate ACHS for now. Full liquid diet with protein shakes. (4) Odynophagia: (5) Syncope, cardiogenic: Most likely in setting of dehydration, secondary to bradycardia along with chronic carotid artery disease post chemoradiation therapy. Check echocardiogram. IV hydration with normal saline 50 cc/h. Orthostatic blood pressures (6) Carotid artery disease: (7) Essential hypertension: Goal blood pressure less than 140/90 mmHg. Continue home medication with metoprolol for now. Continue to monitor. (8) Malnutrition: (9) Goals of care, counseling/discussion: Patient's daughter will be the DPOA. CODE STATUS is DNR/DNI. Discussed in detail with the patient and patient's daughter at bedside. We discussed that unfortunately anorexia and malnutrition is chronic most likely in setting of poor oral intake. We discussed the options would be possible feeding tube versus NG tube placement and TPN is not an as parenteral nutrition is more likely a bridge to a more definitive treatment. As per daughters patient would have not wanted NG tube placement or PEG tube feed. They are agreeable with dietary consultation. Plan Full liquid diet with protein shake DNR/DNI Protonix for PUD prophylaxis Pradaxa will suffice for DVT prophylaxis Attestations 2 Medical Necessity Statement*: Admitted under observation for less than 2 midnights for management of A-fib with slow ventricular response, bradycardia, syncope evaluation, anorexia with malnutrition in a patient with history of tonsillar cancer post chemoradiation therapy Diagnoses Atrial fibrillation with rapid ventricular response I48.91 Atrial fibrillation with slow ventricular response I48.91 Anorexia R63.0 Odynophagia R13.10 Syncope, cardiogenic R55 Carotid artery disease I77.9 Essential hypertension I10 Malnutrition E46 Goals of care, counseling/discussion Z71.89
[2023-05-22] MEDS: sucralfate 1 gm Tablet PO ×2 (18:04→20:15)
[2023-05-22] MEDS: metoprolol tartrate 50 mg Tablet 100 MG PO (18:04)
[2023-05-22] MEDS: dilTIAZem 5 mg/mL SDV 5 mL IVP ×2 (20:15→22:11)
[2023-05-22] MEDS: dextrose 5%-sod chloride 0.45% 1,000 ML 50 ML IV (20:22)
[2023-05-22 20:48] LABS: Free T4 Free Thyroxine 1.23 ng/dL (0.82-1.77); T3 Free 1.6 PG/ML (2.0-4.4)
[2023-05-22] MEDS: dilTIAZem 30 mg Tablet PO (21:09)
[2023-05-22 21:53] LABS: Add Urine Microscopic? NO; Charge for UA Resulting for Rev
[2023-05-22 22:00] LABS: Bilirubin Urine Neg (Negative); Blood Urine Neg (Negative); Glucose Urine UA Norm (Normal); Ketones Urine 1+ (Negative); Leukocyte Esterase Urine Negative (Negative); Nitrate Urine Negative (Negative); Protein Urine Neg (Negative); Urine Appearance Clear (CLEAR); Urine Color Yellow (Yellow); Urobilinogen Urine Norm (Negative); pH Urine 5 (5-7)
--- NOTE | 2023-05-22 22:45 | PC.NURSE ---
report called to Damari in C[facility].
--- NOTE | 2023-05-22 23:04 | PC.NURSE ---
This nurse called daughter Cathy to update on pt transfer. All questions and concerns answered.
[2023-05-23] VITALS (53 sets, daily range): BP systolic 111–126; BP diastolic 69–94; PULSE 65–101; RESP 12–29; TEMP 36.5–36.8; O2SAT 84–96
--- NOTE | 2023-05-23 | FL_ITS ---
WS: [id number] FL barium swallow modifd 27963 REASON FOR EXAM: Pharyngeal dysphagia FLUOROSCOPY TIME: 4min [id number] # OF SPOT FILMS: None FINDINGS: The examination was supervised by the speech therapy department. The patient was examined in the sitting upright lateral projection. The swallowing of varying consistencies of barium was monitored fluoroscopically and video recorded. A detailed report of the swallowing will be rendered by the speech therapy department. IMPRESSION: Modified barium swallow as above.
[2023-05-23] MEDS: levothyroxine 75 mcg Tablet PO (04:14)
[2023-05-23] MEDS: clopidogrel 75 mg Tablet PO (04:14)
[2023-05-23 04:15] LABS: Basophils % 0.1 %; Eosinophils % 0.3 %; Hematocrit 41.4 % (36-47); Lymphocytes # 1.1 10^3/uL (0.8-4.8); Lymphocytes % 11.2 %; Mean Corpuscular HGB Conc 31.6 g/dL (30-55); Mean Corpuscular Hemoglobin 29.2 pg (27-33); Mean Corpuscular Volume 92.2 fl (85-98); Mean Platelet Volume 10.9 fL (7.4-10.4); Monocytes # 0.6 10^3/uL (0.2-0.9); Monocytes % 6.5 %; Neutrophils # 8.09 10^3/uL (1.8-7.7); Neutrophils % 81.6 %; Nucleated Red Blood Cells % 0 %; Platelet Count 194 10^3/cmm (157-399); Red Blood Count 4.49 10^6/uL (3.85-5.65); Red Cell Distribution Width 13.7 % (12.1-15.1); White Blood Count 9.91 10^3/uL (3.29-11.43)
[2023-05-23] MEDS: metoprolol tartrate 50 mg Tablet 100 MG PO (04:15)
[2023-05-23] MEDS: dilTIAZem 30 mg Tablet PO ×2 (04:15→08:46)
[2023-05-23 04:32] LABS: Alanine Aminotransferase 40 U/L (0-33); Albumin Level 3.4 g/dL (3.5-5.2); Alkaline Phosphatase 65 U/L (35-105); Anion Gap 13.6 (5-19); Aspartate Amino Transferase 31 U/L (0-32); Blood Urea Nitrogen 26 mg/dL (8-23); Calcium 8.9 mg/dL (8.5-10.5); Carbon Dioxide 21 mmol/L (22-29); Chloride 108 mmol/L (98-107); Glucose 141 mg/dL (65-115); Magnesium 1.6 mg/dL (1.7-2.3); Osmolality Calculated 293 mOsm/kg (285-295); Phosphorus 2.8 mg/dL (2.5-4.5); Potassium 4.6 mmol/L (3.5-5.1); Sodium 138 mmol/L (136-145); Total Bilirubin 0.5 mg/dL (0.15-1.2); Total Protein 6.4 g/dL (6.6-8.7)
[2023-05-23 04:34] LABS: Cholesterol 156 mg/dL (0-200); HDL Cholesterol 41 mg/dL (60-100); LDL Cholesterol Calculated 85 mg/dL (50-129); LDL HDL Ratio 2.07 RATIO (0.00-3.22); Triglycerides 148 mg/dL (0-150)
[2023-05-23 04:35] LABS: Estmated Average Glucose 114; Hemoglobin A1C 5.6 % (4.0-6.0)
[2023-05-23 04:50] LABS: Folate Level 6.3 ng/mL (4.8-37.3)
[2023-05-23] MEDS: sucralfate 1 gm/10 mL Oral Liq UDC PO (05:57)
[2023-05-23] MEDS: pantoprazole 40 mg SDV IVP (08:45)
[2023-05-23] MEDS: atorvastatin 40 mg Tablet 20 MG PO (08:46)
--- NOTE | 2023-05-23 10:20 | PC.CHAP ---
Pastoral Care Encounter/Spiritual Assessment Type of Contact [] Declined power plant electrician visit [] Patient/Family/Request visit [] Outpatient visit [] Follow-up visit [] Physician referral [] Code/Alert [x] Routine visit [] Staff referral [] Actively dying [] Patient sleeping [] Family support [] [] Out of room [] Palliative care [] [x] Receiving care in room [] Pre-surgical visit [] Trauma [] Long length of stay [] ICU visit [] Other: Relational/Emotional Strength [x] Patient feels connected with others/family/visitors/staff [] Distress [] Loneliness/isolation [] Abandonment Spirituality of Patient [x] Person of Nadege [] Attends Catholic of their [place] [x] Believes in Prayer [] Reads Bible or Caodaism materials [] There are Spiritual issues to be addressed Financial Assistant Interventions [x] Prayer [x] Active listening [x] Non-anxious presence [x] Spiritual/emotional support [] Crisis/trauma care [x] Spiritual counseling [] Bereavement support [] Provided bereavement packet [] Provided Bible/devotional materials [] Provided toy/stuffed animal, coloring book to patient or family member [] Provided Communion [] Anointing/[place] [] Salvation [x] Completed spiritual assessment [] Other: Impact on Illness or Injury [] Angry [] Fearful [] Anxious [] Often cries [] Exhaustion [] Unable to work [] Unable to attend baptist [] Unable to walk/stand [] Unable to read [] Unable to drive [] Unable to eat/drink [] Unable to sleep [] Unable to be with family [] Patient intubated [] Other: Summary senior dealing with her heart positive tests checking with doctor and nwell go home Time spent with patient 10 mins
--- NOTE | 2023-05-23 13:06 | PM.DCS ---
Discharge Providers Date of Admission: 05/22/23 15:03 Date of Discharge: May 23, 2023 Attending Provider at Admission: Raheem Avila MD Attending Provider at Discharge: Raheem Avila MD Primary Care Provider: Bonnie Gonzalez MD Diagnoses at Discharge Discharge Diagnosis (1) Atrial fibrillation with rapid ventricular response: Status: Acute (2) Atrial fibrillation with slow ventricular response: Status: Acute (3) Anorexia: Status: Acute (4) Odynophagia: Status: Acute (5) Syncope, cardiogenic: Status: Acute (6) Carotid artery disease: Status: Acute (7) Essential hypertension: Status: Acute (8) Malnutrition: Status: Acute (9) Goals of care, counseling/discussion: Status: Acute Reason for Visit Reason for Visit: Weakness Hospital Course Hospital Course Carrie Winston is a 87 year old female with past medical history of hypertension, CAD, chronic A-fib with bradycardia on anticoagulation with Pradaxa, carotid artery stenosis post right carotid artery endarterectomy, hypothyroidism, moderate MR, moderate TR, moderate AI, 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 As per the daughters patient has had poor oral intake because of difficulty to swallow, poor taste and appetite ongoing since her chemoradiation therapy but has gotten worse over last few years more so over the last 1 week when she is not able to get out of bed. In the ER she was found to be in A-fib with RVR for which she was given 20 of IV Cardizem after which she had a syncopal event with heart rate dropping down to 30s and hypotension which was managed with 1 mg of IV atropine and monitor fluid bolus. Examination patient was in A-fib with heart rate of 70 bpm, awake and alert on 2 L of oxygen supplementation with daughters at bedside with blood pressure 130 over 80 mmHg. Patient was admitted to the hospital further evaluation and management of A-fib with RVR with episodes of significant bradycardia along with malnutrition and anorexia secondary to poor oral intake. Goals of care discussion were done in detail with patient's DPOA/daughter at bedside. Patient is DNR/DNI. She would be okay with a pacemaker if needed but does not want any feeding tube. She was monitored during hospitalization and found to have episodes of tachycardia for which she was also started on low-dose Cardizem which she has tolerated well with heart rate ranging from high 60s to low 100s. Possibility of uptitrating Cardizem dose were discussed in detail with the patient with risk of her developing bradycardia requiring pacemaker versus continuing the current dose of Cardizem and metoprolol along with event monitor for 21 days for further evaluation of heart rate while at home was discussed in detail. Patient and daughter were interested in discharge with event monitor and following up with cardiology for possible need of pacemaker. Patient was seen by dietitian during hospitalization to improve nutrition. She also had modified barium swallow and was seen by speech therapy to rule out other reasons for dysphagia. She has been discharged in hemodynamically stable condition on modified diet as per speech therapy and dietitian recommendations on oral Cardizem 30 mg every 6 hourly along with home dose of metoprolol 100 mg twice daily with event monitor. Patient is to follow-up with cardiology after the event monitor for further titration of rate controlling medications versus possibility need of pacemaker. Safe discharge planning was discussed in detail with the patient and daughter. All the questions were answered. They verbalized understanding of discharge planning and instructions. Physical Exam Narrative: General: No acute distress, AO x3, Anorexic, malnourished, dehydrated HEENT: PERRLA, pupils bilaterally equal and reactive Chest: Normal vesicular breath sounds, no added sounds, equal good air entry bilaterally CVS: S1-S2 irregularly irregular, pansystolic murmur at apex radiating to anterior axillary line, pansystolic murmur at fourth intercostal space, no tachycardia, no gallops, no rubs Abdomen: Soft, nontender, no organomegaly, bowel sounds present Neuro: No focal deficits, no facial deformity, AO x3, power 5/5 in all limbs Discharge Data Studies Completed and Pending Completed Studies During Hospitalization Category Date Time Status XR chest 1V portable [id number] Stat Exams 05/22/23 13:31 Completed Pending at discharge Category Date Time Status FL barium swallow modifd [id number] Routine Exams 05/23/23 Taken Radiology Impressions Chest X-Ray 05/22/23 13:31 IMPRESSION: There is some ground-glass attenuation of the lower lung zones suggestive of early multifocal inflammation. Some early interstitial edema could also present in this fashion along with enlarged cardiac silhouette. Consider echocardiography. Laboratory Results WBC 9.91 10^3/uL (3.29-11.43) 05/23/23 04:05 RBC 4.49 10^6/uL (3.85-5.65) 05/23/23 04:05 Hgb 13.10 g/dL (11.27-16.99) 05/23/23 04:05 Hct 41.4 % (36-47) 05/23/23 04:05 MCV 92.2 fl (85-98) 05/23/23 04:05 MCH 29.2 pg (27-33) 05/23/23 04:05 MCHC 31.6 g/dL (30-55) 05/23/23 04:05 RDW 13.7 % (12.1-15.1) 05/23/23 04:05 Plt Count 194 10^3/cmm (157-399) 05/23/23 04:05 MPV 10.9 fL (7.4-10.4) H 05/23/23 04:05 Neut % (Auto) 81.6 % 05/23/23 04:05 Lymph % (Auto) 11.2 % 05/23/23 04:05 [place] % (Auto) 6.5 % 05/23/23 04:05 Eos % (Auto) 0.3 % 05/23/23 04:05 Baso % (Auto) 0.1 % 05/23/23 04:05 Neut # (Auto) 8.09 10^3/uL (1.8-7.7) H 05/23/23 04:05 Lymph # (Auto) 1.1 10^3/uL (0.8-4.8) 05/23/23 04:05 [place] # (Auto) 0.6 10^3/uL (0.2-0.9) 05/23/23 04:05 Eos # (Auto) 0.0 10^3/uL (0.0-0.8) 05/23/23 04:05 Baso # (Auto) 0.0 10^3/uL (0.0-0.1) 05/23/23 04:05 Nucleated RBC % (auto) 0 % 05/23/23 04:05 Nucleated RBCs # 0.0 /100WBC 05/23/23 04:05 Sodium 138 mmol/L (136-145) 05/23/23 04:05 Potassium 4.6 mmol/L (3.5-5.1) 05/23/23 04:05 Chloride 108 mmol/L (98-107) H 05/23/23 04:05 Carbon Dioxide 21 mmol/L (22-29) L 05/23/23 04:05 Anion Gap 13.6 (5-19) 05/23/23 04:05 BUN 26 mg/dL (8-23) H 05/23/23 04:05 Creatinine 1.0 mg/dL (0.5-0.9) H 05/23/23 04:05 GFR Calculation Not Reportable 05/23/23 04:05 Glucose 141 mg/dL (65-115) H 05/23/23 04:05 Estimat Average Glucose 114 05/23/23 04:05 Hemoglobin A1c 5.6 % (4.0-6.0) 05/23/23 04:05 Calculated Osmolality 293 mOsm/kg (285-295) 05/23/23 04:05 Calcium 8.9 mg/dL (8.5-10.5) 05/23/23 04:05 Phosphorus 2.8 mg/dL (2.5-4.5) 05/23/23 04:05 Magnesium 1.6 mg/dL (1.7-2.3) L 05/23/23 04:05 Iron 43 ug/dL (37-145) 05/22/23 11:58 TIBC 302 mcg/dl 05/22/23 11:58 % Saturation 14.2 % (20-50) L 05/22/23 11:58 Unsat Iron Binding 259 ug/dL (112-347) 05/22/23 11:58 Total Bilirubin 0.5 mg/dL (0.15-1.2) 05/23/23 04:05 AST 31 U/L (0-32) 05/23/23 04:05 ALT 40 U/L (0-33) H 05/23/23 04:05 Alkaline Phosphatase 65 U/L (35-105) 05/23/23 04:05 Total Protein 6.4 g/dL (6.6-8.7) L 05/23/23 04:05 Albumin 3.4 g/dL (3.5-5.2) L 05/23/23 04:05 Globulin 3.0 g/dL (1.3-4.6) 05/23/23 04:05 Triglycerides 148 mg/dL (0-150) 05/23/23 04:05 Cholesterol 156 mg/dL (0-200) 05/23/23 04:05 LDL Cholesterol, Calc 85 mg/dL (50-129) 05/23/23 04:05 HDL Cholesterol 41 mg/dL (60-100) L 05/23/23 04:05 LDL/HDL Ratio 2.07 RATIO (0.00-3.22) 05/23/23 04:05 Cholesterol/HDL Ratio 3.80 mg/dL (0.0-4.40) 05/23/23 04:05 Vitamin B12 719 pg/mL (232-1245) 05/22/23 11:58 Folate 6.3 ng/mL (4.8-37.3) 05/23/23 04:05 TSH 4.69 uIU/mL (0.27-4.20) H 05/22/23 11:58 Free T4 1.23 ng/dL (0.82-1.77) 05/22/23 11:58 Free T3 1.6 PG/ML (2.0-4.4) L 05/22/23 11:58 Urine Color Yellow (Yellow) 05/22/23 21:18 Urine Appearance Clear (CLEAR) 05/22/23 21:18 Urine pH 5 (5-7) 05/22/23 21:18 Ur Specific [place] 1.020 (1.005-1.030) 05/22/23 21:18 Urine Protein Neg (Negative) 05/22/23 21:18 Urine Glucose (UA) Norm (Normal) 05/22/23 21:18 Urine Ketones 1+ (Negative) H 05/22/23 21:18 Urine Blood Neg (Negative) 05/22/23 21:18 Urine Nitrate Negative (Negative) 05/22/23 21:18 Urine Bilirubin Neg (Negative) 05/22/23 21:18 Urine Urobilinogen Norm mg/dL (Negative) 05/22/23 21:18 Ur Leukocyte Esterase Negative (Negative) 05/22/23 21:18 Vitals Last Vital Signs Temp 97.7 F 05/23/23 07:07 Pulse 67 05/23/23 07:07 Resp 22 H 01/11/24 07:07 BP 111/69 05/23/23 07:07 Pulse Ox 94 05/23/23 07:07 O2 Del Method Nasal Cannula 05/23/23 07:07 O2 Flow Rate 3 05/22/23 19:46 Discharge Plan Discharge Patient Disposition: Home Condition: Stable Prescriptions: New sucralfate 100 mg/mL Suspension 1 g PO AC&BEDTIME Qty: 1000 0RF diltiazem HCl 30 mg Tablet 30 mg PO Q6H 30 Days Qty: 120 0RF Biotene Moisturizing Mouth [place],Non-Aerosol 1 spray mucous membrane PRN PRN (Reason: Dry Mouth) Qty: 44.3 0RF dabigatran etexilate [Pradaxa] 75 mg Capsule 75 mg PO BID 30 Days Qty: 60 0RF levothyroxine 100 mcg capsule 100 mcg PO DAILY Qty: 30 0RF Continued latanoprost [Xalatan] 0.005 % drops 1 drp ophthalmic (eye) BEDTIME pantoprazole 40 mg tablet,delayed release (DR/EC) 40 mg PO QAM metoprolol tartrate 100 mg tablet 100 mg PO Q12H atorvastatin 20 mg tablet 20 mg PO DAILY clopidogrel 75 mg tablet 75 mg PO QAM Hold Instructions: Resume on 10/08/21. cholecalciferol (vitamin D3) [Vitamin D3] 125 mcg (5,000 unit) Tablet 125 mcg PO .FOUR TIMES A WEEK Discontinued levothyroxine 75 mcg tablet 75 mcg PO QAM Pradaxa 110 mg capsule 110 mg PO BID Hold Instructions: Resume on 10/08/21. Discharge Orders: Discharge Order (Routine); Ordered 05/23/23 Ordered By: Raheem Avila Other Ambulatory Orders: MCT/Event Monitor 21 Days (Routine) Timeframe: 1 Week Facility: [facility] - Location: Radiology Ordered By: Raheem Avila Referrals: Bonnie Gonzalez MD [Primary Care Provider] - 05/29/23 1:30 pm () Bianca Mcmahon FNP [Nurse Practitioner] - 06/03/23 3:30 pm Discharge Diet: Advance as tolerated and As Directed Discharge Activity: Resume usual activity and Increase activity as tolerated Patient Instructions: Diltiazem (By mouth) (Cardizem, Cardizem CD, Cardizem LA, Cardizem SR), Sucralfate (By mouth) (Carafate), Levothyroxine (By mouth) (Levothroid, Levoxyl, Synthroid, Tirosint), Dabigatran (By mouth) (Pradaxa), Opioid Safety Discharge Attestations Time Spent in Discharge Care*: greater than 30 min Specific Discharge Activities: educating patient, educating and/or supporting family/caregiver, discussing with pcp/other providers, discussing with special education case manager/social workers/dc planners, documenting/other paperwork and evaluating patient/reviewing data Status at Discharge: Cognitive status at discharge: cognitively intact, Behavioral status at discharge: cooperative, Functional status at discharge: independent ambulation, Overall status at discharge: patient is progressing back to baseline Quality Metrics Clinical Quality Measures [ No reported AMI, CVA or VTE this stay] Coding Level of Care Code 25729 Total time (in minutes) for Discharge: 60 Diagnoses Atrial fibrillation with rapid ventricular response I48.91 Atrial fibrillation with slow ventricular response I48.91 Anorexia R63.0 Odynophagia R13.10 Syncope, cardiogenic R55 Carotid artery disease I77.9 Essential hypertension I10 Malnutrition E46 Goals of care, counseling/discussion Z71.89
--- NOTE | 2023-05-23 15:27 | PC.NURSE ---
Discharge Note Patient discharged to home via wheelchair accompanied by family. Discharge instructions reviewed with patient and/or senior sales representative. Mobile pharmacy medications and/or prescriptions provided. Belongings/home medications returned. event monitor will be put in hcs at 3:30 pm. family preferred [facility] to get her new meds.
--- NOTE | 2023-05-23 15:56 | PC.NURSE ---
Orthostatic BP- Laying BP-1116 AM-128/70; Sitting up-130/92; Standing-130/79. pt denies any dizziness or lightheadedness.
== END 2023-05-23 15:27 | disposition home or self-care (01) ==
LOC: ER 15:01 → CSU 05-23 00:12 → MEDSURG 05-23 02:42
PROVIDERS: Admitting Provider Student in an Organized Health Care Education/Training Program; Emergency Provider Emergency Medicine; PCP Internal Medicine; Visit Provider Student in an Organized Health Care Education/Training Program
DX: I48.20 Chronic atrial fibrillation, unspecified (principal); R63.0 Anorexia; R13.10 Dysphagia, unspecified; R55 Syncope and collapse; I77.9 Disorder of arteries and arterioles, unspecified; I10 Essential (primary) hypertension; Z71.89 Other specified counseling; I25.10 Atherosclerotic heart disease of native coronary artery without angina pectoris; Z66 Do not resuscitate; Z85.3 Personal history of malignant neoplasm of breast; C09.9 Malignant neoplasm of tonsil, unspecified; Z86.73 Personal history of transient ischemic attack (TIA), and cerebral infarction without residual deficits
CPT/HCPCS: 36415; 71045; 74230; 80053; 80061; 81003; 82607; 82746; 83036; 83540; 83550; 83735; 84100; 84439; 84443; 84481; 85025; 92611; 93005; 94640; 94664; 96361; 96374; 96375; 96376; 99285; C9113; G0378; J0461; J2405; J3490; J7030; J7799

== ENCOUNTER 2023-05-29 15:26 | Emergency (ER) | payer MEDICARE, OTHER, SELFPAY ==
[2023-05-29] VITALS (12 sets, daily range): BP systolic 110–152; BP diastolic 67–102; PULSE 57–115; RESP 7–21; TEMP 36.9; O2SAT 84–98; BMI 23.8
--- NOTE | 2023-05-29 15:38 | XR_ITS ---
WS: [id number] Exam: XR chest 1V portable [id number] Date/Time of Exam: 05/29/2023 4:00 PM Reason For Exam: weakness Comparison 05/22/2023. The lungs are hyperinflated. No acute infiltrates are noted. Mild plaque atelectasis in the LEFT base . Probable trace RIGHT basal pleural effusion. The heart is enlarged but unchanged in size. Calcifica tion of the mitral valve annulus. Bony structures are intact. A battery pack superimposes the mediast inum. IMPRESSION: 1. Pulmonary hyperinflation. No acute infiltrates are noted. 2. There may be trace RIGHT basal pleural effusion. 3. Moderate cardiac enlargement unchanged.
[2023-05-29] MEDS: sodium chloride 0.9% 1,000 ML 999 ML IV (15:50)
--- NOTE | 2023-05-29 15:51 | ECG_ITS ---
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 Measurements Intervals [place] Rate: 114 P: 0 SD: 0 QRS: 16 QRSD: 91 T: 21 QT: 351 QTc: 485 Interpretive Statements ATRIAL FIBRILLATION WITH RAPID VENTRICULAR RESPONSE INCOMPLETE RIGHT BUNDLE BRANCH BLOCK [90+ ms QRS DURATION, TERMINAL R IN V1/V2, 40+ ms S IN I/aVL/V4/V5/V6] MINIMAL ST DEPRESSION [0.025+ mV ST DEPRESSION] Compared to ECG 05/22/2023 12:33:33 Incomplete right bundle-branch block now present ST (T wave) deviation now present Myocardial infarct finding no longer present Electronically Signed On 05-30-2023 11:06:12 HOISTING MACHINE OPERATOR by Kurtis Henry M.D. [email or web address] by [id number]
[2023-05-29 15:53] LABS: Basophils % 0.4 %; Eosinophils # 0.1 10^3/uL (0.0-0.8); Eosinophils % 1.5 %; Hematocrit 43.8 % (36-47); Lymphocytes # 0.8 10^3/uL (0.8-4.8); Lymphocytes % 9.8 %; Mean Corpuscular HGB Conc 32.2 g/dL (30-55); Mean Corpuscular Hemoglobin 28.9 pg (27-33); Mean Corpuscular Volume 89.8 fl (85-98); Monocytes # 0.4 10^3/uL (0.2-0.9); Monocytes % 5.4 %; Neutrophils % 82.6 %; Nucleated Red Blood Cells % 0 %; Platelet Count 245 10^3/cmm (157-399); Red Blood Count 4.88 10^6/uL (3.85-5.65); Red Cell Distribution Width 13.8 % (12.1-15.1); White Blood Count 7.75 10^3/uL (3.29-11.43)
[2023-05-29 16:14] LABS: INR 1.39 (0.8-1.2)
[2023-05-29] MEDS: dilTIAZem 5 mg/mL SDV 5 mL 10 MG IVP (16:14)
[2023-05-29 16:20] LABS: Troponin(5th) Baseline 22 ng/L (0-10)
[2023-05-29 16:31] LABS: Alanine Aminotransferase 27 U/L (0-33); Albumin Level 3.9 g/dL (3.5-5.2); Alkaline Phosphatase 81 U/L (35-105); Aspartate Amino Transferase 26 U/L (0-32); Blood Urea Nitrogen 17 mg/dL (8-23); Calcium 9.6 mg/dL (8.5-10.5); Carbon Dioxide 28 mmol/L (22-29); Chloride 101 mmol/L (98-107); Globulin 2.9 g/dL (1.3-4.6); Glucose 134 mg/dL (65-115); Lipase 59 U/L (13-60); Osmolality Calculated 288 mOsm/kg (285-295); Sodium 137 mmol/L (136-145); Total Bilirubin 0.5 mg/dL (0.15-1.2); Total Protein 6.8 g/dL (6.6-8.7)
--- NOTE | 2023-05-29 16:31 | ED_ITS ---
HPI - Weakness 2 General: Chief complaint: Weakness Stated complaint: Weakness Time Seen by Provider: 05/29/23 15:30 Source: patient Mode of arrival: ambulatory Limitations: no limitations History of Present Illness: 87-year-old female who states that she d id have nausea just feeling weak today she went to the clinic they had sent her here she does have A-fib states she does not take her Cardizem this morning. She denies any fever denies any pain anywhere denies cough Associated symptoms: Denies chest pain, chills, dysuria, fever(s), headache(s), nausea or vomiting Review of Systems 2 Const: Reports: fatigue; Denies: fever(s), chills, body aches or change in appetite Eyes: Denies: blurry vision or eye discomfort ENMT: Denies: throat pain or dental pain Card: Denies: chest pain Resp: Denies: dyspnea GI: Denies: abdominal pain, nausea, vomiting or diarrhea : Denies: dysuria Musc: Denies: neck pain or back pain Skin/Breast: Denies: rash Neuro: Denies: headache(s) PFSH ED 2 PFSH: Medical History DNI (do not intubate) DNR (do not resuscitate) Bloody discharge from right nipple Breast cancer, right Carotid artery disease GERD (gastroesophageal reflux disease) CVA (cerebral vascular accident) 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 Glaucoma Hypercholesteremia History of atrial fibrillation Surgical History Status post right breast lumpectomy (09/18/21) re excision margin -10/05/21 Status post carotid surgery right carotid stent S/P appendectomy History of colonoscopy Family History Father Myocardial infarct Hypercholesteremia CAD (coronary artery disease) Chronic kidney disease (CKD) Mother Hypercholesteremia Alzheimer disease Dementia CAD (coronary artery disease) Sister CAD (coronary artery disease) Cancer Daughter Diabetes Social History Smoking and tobacco/nicotine status: never used tobacco/nicotine Physical Exam 2 Const: COMMON NORMALS: no acute distress, patient oriented x3 and healthy appearing HENMT: COMMON NORMALS: normocephalic and atraumatic HEAD & SCALP: n ormocephalic and atraumatic Eye: COMMON NORMALS: Equal, round and reactive pupils present and EOMs intact bilaterally PUPIL: Yes Equal, round and reactive pupils present Neck/C-Spine: COMMON NORMALS: full ROM and supple Chest: COMMONS NORMALS: normal inspection of the chest and normal palpation of entire chest wall Resp: COMMON NORMALS: normal respiratory effort, No retractions, No use of accessory muscles and clear to auscultation bilaterally AUSCULTATION: clear to auscultation bilaterally Cardio: COMMON NORMALS: regular rate, regular rhythm and No murmurs present (Cardio) RATE: regular rate RHYTHM: regular rhythm GI: COMMON NORMALS: Normal to inspection, nondistended, normoactive bowel sounds present, Soft to palpation, non-tender and no masses PALPATION: Yes Soft to palpation Extremity: COMMON NORMALS: normal to inspection and full ROM Neuro: COMMON NORMALS: patient oriented x3, moves all extremities and no focal motor deficits Psych: COMMON NORMALS: mental status grossly normal, Normal thought process present and cooperative THOUGHT PROCESS: Normal thought process present Skin: COMMON NORMALS: no rashes or lesions noted and no wounds GENERAL SKIN EXAM: no rashes or lesions noted Course 2 Vital Signs: Vital signs: Vital Signs Temperature 98.4 F 05/29/23 15:30 Pulse Rate 60 05/29/23 17:05 Respiratory Rate 14 05/29/23 17:05 Blood Pressure 125/70 05/29/23 17:05 Pulse Oximetry 95 05/29/23 17:05 Oxygen Delivery Me thod Room Air 05/29/23 15:30 MDM - Weakness Medical Decision Making Patient presents here with generalized weakness she has been well-appearing here she was in A-fib but she did forget her Cardizem dose and is rate controlled here after Cardizem no signs of infection she is stable for discharge she is follow-up with PCP and return if worsening. Medical Records I reviewed the patient's medical records. Lab Data I reviewed the patient's lab results. 05/29/23 15:46 05/29/23 15:46 Laboratory Results WBC 7.75 10^3/uL (3.29-11.43) 05/29/23 15:46 RBC 4.88 10^6/uL (3.85-5.65) 05/29/23 15:46 Hgb 14.10 g/dL (11.27-16.99) 05/29/23 15:46 Hct 43.8 % (36-47) 05/29/23 15:46 MCV 89.8 fl (85-98) 05/29/23 15:46 MCH 28.9 pg (27-33) 05/29/23 15:46 MCHC 32.2 g/dL (30-55) 05/29/23 15:46 RDW 13.8 % (12.1-15.1) 05/29/23 15:46 Plt Count 245 10^3/cmm (157-399) 05/29/23 15:46 MPV 10.0 fL (7.4-10.4) 05/29/23 15:46 Neut % (Auto) 82.6 % 05/29/23 15:46 Lymph % (Auto) 9.8 % 05/29/23 15:46 [place] % (Auto) 5.4 % 05/29/23 15:46 Eos % (Auto) 1.5 % 05/29/23 15:46 Baso % (Auto) 0.4 % 05/29/23 15:46 Neut # (Auto) 6.40 10^3/uL (1.8-7.7) 05/29/23 15:46 Lymph # (Auto) 0.8 10^3/uL (0.8-4.8) 05/29/23 15:46 [place] # (Auto) 0.4 10^3/uL (0.2-0.9) 05/29/23 15:46 Eos # (Auto) 0.1 10^3/uL (0.0-0.8) 05/29/23 15:46 Baso # (Auto) 0.0 10^3/uL (0.0-0.1) 05/29/23 15:46 Nucleated RBC % (auto) 0 % 05/29/23 15:46 Nucleated RBCs # 0.0 /100WBC 05/29/23 15:46 PT 17.50 SECONDS (12.1-14.9) H 05/29/23 15:46 INR 1.39 (0.8-1.2) H 05/29/23 15:46 Sodium 137 mmol/L (136-145) 05/29/23 15:46 Potassium 4.3 mmol/L (3.5-5.1) 05/29/23 15:46 Chloride 101 mmol/L (98-107) 05/29/23 15:46 Carbon Dioxide 28 mmol/L (22-29) 05/29/23 15:46 Anion Gap 12.3 (5-19) 05/29/23 15:46 BUN 17 mg/dL (8-23) 05/29/23 15:46 Creatinine 0.9 mg/dL (0.5-0.9) 05/29/23 15:46 GFR Calculation Not Reportable 05/29/23 15:46 Glucose 134 mg/dL (65-115) H 05/29/23 15:46 Calculated Osmolality 288 mOsm/kg (285-295) 05/29/23 15:46 Calcium 9.6 mg/dL (8.5-10.5) 05/29/23 15:46 Total Bilirubin 0.5 mg/dL (0.15-1.2) 05/29/23 15:46 AST 26 U/L (0-32) 05/29/23 15:46 ALT 27 U/L (0-33) 05/29/23 15:46 Alkaline Phosphatase 81 U/L (35-105) 05/29/23 15:46 Troponin T Baseline 22 ng/L (0-10) H 05/29/23 15:46 Total Protein 6.8 g/dL (6.6-8.7) 05/29/23 15:46 Albumin 3.9 g/dL (3.5-5.2) 05/29/23 15:46 Globulin 2.9 g/dL (1.3-4.6) 05/29/23 15:46 Lipase 59 U/L (13-60) 05/29/23 15:46 Urine Color Yellow (Yellow) 05/29/23 16:39 Urine Appearance Clear (CLEAR) 05/29/23 16:39 Urine pH 6 (5-7) 05/29/23 16:39 Ur Specific [place] 1.015 (1.005-1.030) 05/29/23 16:39 Urine Protein Neg (Negative) 05/29/23 16:39 Urine Glucose (UA) Norm (Normal) 05/29/23 16:39 Urine Ketones Negative (Negative) 05/29/23 16:39 Urine Blood Neg (Negative) 05/29/23 16:39 Urine Nitrate Negative (Negative) 05/29/23 16:39 Urine Bilirubin Neg (Negative) 05/29/23 16:39 Urine Urobilinogen Norm mg/dL (Negative) 05/29/23 16:39 Ur Leukocyte Esterase Negative (Negative) 05/29/23 16:39 All radiology interpretation(s) finalized by discharge EKG Data EKG 1: I personally reviewed and interpreted this EKG as follows: EKG interpretation date: 05/29/23 EKG interpretation time: 15:51 Interpretation: afib hr [address] or t wave abnormalities qrs 91 qtc 419 Discharge Plan Discharge Patient Disposition: Home Clinical Impression: Atrial fibrillation with rapid ventricular response, Weakness Condition: Stable Prescriptions: No Action latanoprost [Xalatan] 0.005 % drops 1 drp ophthalmic (eye) BEDTIME pantoprazole 40 mg tablet,delayed release (DR/EC) 40 mg PO QAM metoprolol tartrate 100 mg tablet 100 mg PO Q12H atorvastatin 20 mg tablet 20 mg PO DAILY clopidogrel 75 mg tablet 75 mg PO QAM Hold Instructions: Resume on 09/21/21. cholecalciferol (vitamin D3) [Vitamin D3] 125 mcg (5,000 unit) Tablet 125 mcg PO .FOUR TIMES A WEEK diltiazem HCl 30 mg Tablet 30 mg PO Q6H 30 Days Qty: 120 0RF Biotene Moisturizing Mouth [place],Non-Aerosol 1 spray mucous membrane PRN PRN (Reason: Dry Mouth) Qty: 44.3 0RF Pradaxa 75 mg Capsule 75 mg PO BID 30 Days Qty: 60 0RF sucralfate 100 mg/mL Suspension 1 g PO AC&BEDTIME Qty: 1000 0RF levothyroxine 100 mcg capsule 100 mcg PO DAILY Qty: 30 0RF Discharge Orders: Discharge ED (Routine); Ordered 05/29/23 Ordered By: Nuris Mckenzie Referrals: Bonnie Gonzalez MD [Primary Care Provider] - Discharge Diet: Advance as tolerated Discharge Activity: Resume usual activity Patient Instructions: Weakness (ED) Coding Level of Care Code ED Parimutuel Cashier for Chg Franck
[2023-05-29 16:34] LABS: Anion Gap 12.3 (5-19); Potassium 4.3 mmol/L (3.5-5.1)
[2023-05-29 16:48] LABS: Add Urine Microscopic? NO; Charge for UA Resulting for Rev
[2023-05-29 16:58] LABS: Bilirubin Urine Neg (Negative); Blood Urine Neg (Negative); Glucose Urine UA Norm (Normal); Ketones Urine Negative (Negative); Leukocyte Esterase Urine Negative (Negative); Nitrate Urine Negative (Negative); Protein Urine Neg (Negative); Specific Gravity, Urine 1.015 (1.005-1.030); Urine Appearance Clear (CLEAR); Urine Color Yellow (Yellow); Urobilinogen Urine Norm (Negative); pH Urine 6 (5-7)
== END 2023-05-29 17:25 | disposition home or self-care (01) ==
PROVIDERS: Emergency Provider Emergency Medicine; PCP Internal Medicine
DX: I48.91 Unspecified atrial fibrillation (principal); R53.1 Weakness
CPT/HCPCS: 71045; 80053; 81003; 83690; 84484; 85025; 85610; 93005; 96374; 99285; J3490; J7030

== ENCOUNTER → 2023-06-10 09:50 | Outpatient (BNVA) | payer MEDICARE, OTHER, SELFPAY | PROVIDERS: PCP Internal Medicine; Visit Provider Nurse Practitioner Family | DX: I48.91 Unspecified atrial fibrillation (principal); Z79.01 Long term (current) use of anticoagulants; I10 Essential (primary) hypertension | CPT/HCPCS: 99214 ==

== ENCOUNTER → 2023-06-28 11:17 | Outpatient (BNVA) | payer MEDICARE, OTHER, SELFPAY | PROVIDERS: PCP Internal Medicine; Visit Provider Internal Medicine Cardiovascular Disease | DX: I10 Essential (primary) hypertension (principal); E78.00 Pure hypercholesterolemia, unspecified; I77.9 Disorder of arteries and arterioles, unspecified; Z86.79 Personal history of other diseases of the circulatory system; Z86.73 Personal history of transient ischemic attack (TIA), and cerebral infarction without residual deficits | CPT/HCPCS: 99214 ==

== ENCOUNTER 2023-07-09 09:41 | Outpatient (CLI) | payer MEDICARE, OTHER, SELFPAY ==
--- NOTE | 2023-07-09 09:44 | MM_ITS ---
WS: [id number] DIAGNOSTIC BILATERAL DIGITAL BREAST TOMOSYNTHESIS MAMMOGRAPHY WITH CAD RIGHT breast ultrasound, limited HISTORY: HX BR CA; RT BR SWELLING, history of RIGHT nipple removal for cancer. COMPARISON: 08/08/2021 TECHNIQUE: Bilateral craniocaudad, mediolateral oblique, and mediolateral views are submitted with to mosclarissa and CRISTY. Computer aided detection utilized. Breast composition: The breasts are extremely dense, which lowers the sensitivity of mammography. Isaura asts are extremely dense. Postsurgical changes with nipple resection on the RIGHT. There is diffuse s oft tissue thickening along the anterior RIGHT breast which extends along the inferior aspect of the breast. Soft tissue measures up to 5.3 mm. There is also mild thickening of the trabecula throughout the RIGHT breast. No discrete mass identified. LEFT breast is negative. RIGHT breast ultrasound, limited. Ultrasound is directed to the anterior RIGHT breast with attention to the subcutaneous soft tissues i n the areas of edema noted on the mammogram. There is a large amount of subcutaneous soft tissue kasi a infiltrating through the soft tissue. There is increased vascularity throughout the edematous porti ons of the breast but there is no discrete mass. Skin thickening measures greater than 5 mm. Within the axilla there is an least one abnormal lymph node measuring 1.4 x 1.1 x 1.7 cm. There is co mplete loss of the normal fatty hilum. Marked asymmetric thickening and widening of the cortex. IMPRESSION: MM/[place] [id number] BI-RADS: 4-Suspicious Finding-Biopsy Should Be Considered FOLLOW UP: Biopsy Recommended 1. There is marked soft tissue thickening and edema with increased vascularity involving the anterior segment of soft tissues of the breast near the nipple r esection and beyond. Although there is no mass identified findings of recurrent breast disease such as Paget's or inflammatory breast cancer should be conside red. 2. Abnormal RIGHT axillary lymph node. Suspect metastatic disease until proven otherwise. 3. Consider ultrasound-guided biopsy of the abnormal RIGHT axillary lymph node . Punch biopsy can also be performed of the skin surrounding the nipple.
--- NOTE | 2023-07-09 14:09 | US_ITS ---
[address] [address] Mammography Report Signed with Addenda Patient: Carrie Winston Unit #: [id number] : 1935 Age/Sex: 87 / F ADM Date: 07/09/23 Loc: [facility] Room/Bed: Attending Dr: Sunshine GOMES Ordering Provider/Ordering MD: SUNSHINE FANG Date of Service: 07/09/23 Procedure(s): [id number] Accession Number(s): [id number] Report Number: [id number] ADDENDUM WS: [id number] Addendum. Not initially included in the report are findings in the RIGHT axilla. On the RIGHT MLO projection there is a soft tissue mass which is incompletely included with a few calcifications for which ultrasound will be obtained also. Addendum Dictated By: Jewell Wynne DO Addendum Signed By: Jewell Wynne DO Signed Date/Time: 07/09/23 1256 Addendum Cosigned By: WS: [id number] DIAGNOSTIC BILATERAL DIGITAL BREAST TOMOSYNTHESIS MAMMOGRAPHY WITH CAD RIGHT breast ultrasound, limited HISTORY: HX BR CA; RT BR SWELLING, history of RIGHT nipple removal for cancer. COMPARISON: 08/08/2021 TECHNIQUE: Bilateral craniocaudad, mediolateral oblique, and mediolateral views are submitted with tomosynthesis and SM. Computer aided detection utilized. Breast composition: The breasts are extremely dense, which lowers the sensitivity of mammography. Breasts are extremely dense. Postsurgical changes with nipple resection on the RIGHT. There is diffuse soft tissue thickening along the anterior RIGHT breast which extends along the inferior aspect of the breast. Soft tissue measures up to 5.3 mm. There is also mild thickening of the trabecula throughout the RIGHT breast. No discrete mass identified. LEFT breast is negative. RIGHT breast ultrasound, limited. Ultrasound is directed to the anterior RIGHT breast with attention to the subcutaneous soft tissues in the areas of edema noted on the mammogram. There is a large amount of subcutaneous soft tissue edema infiltrating through the soft tissue. There is increased vascularity throughout the edematous portions of the breast but there is no discrete mass. Skin thickening measures greater than 5 mm. Within the axilla there is an least one abnormal lymph node measuring 1.4 x 1.1 x 1.7 cm. There is complete loss of the normal fatty hilum. Marked asymmetric thickening and widening of the cortex. IMPRESSION: MM/[place] [id number] BI-RADS: 4-Suspicious Finding-Biopsy Should Be Considered FOLLOW UP: Biopsy Recommended 1. There is marked soft tissue thickening and edema with increased vascularity involving the anterior segment of soft tissues of the breast near the nipple resection and beyond. Although there is no mass identified findings of recurrent breast disease such as Paget's or inflammatory breast cancer should be considered. 2. Abnormal RIGHT axillary lymph node. Suspect metastatic disease until proven otherwise. 3. Consider ultrasound-guided biopsy of the abnormal RIGHT axillary lymph node. Punch biopsy can also be performed of the skin surrounding the nipple. Dictated By: Jewell Wynne DO Signed By: Jewell Wynne DO Signed Date/Time: 07/09/23 1217 DD/ 1127 MTDFlorencio
== END 2023-07-09 09:42 | disposition home or self-care (01) ==
LOC: RAD 09:41
PROVIDERS: PCP Internal Medicine; Visit Provider Nurse Practitioner Family
DX: Z85.3 Personal history of malignant neoplasm of breast (principal); N63.31 Unspecified lump in axillary tail of the right breast; R22.31 Localized swelling, mass and lump, right upper limb
CPT/HCPCS: 76642; 77062; G0279

== ENCOUNTER → 2023-07-17 12:48 | Outpatient (BNVA) | payer MEDICARE, OTHER, SELFPAY | PROVIDERS: PCP Internal Medicine; Visit Provider Surgery | DX: N64.59 Other signs and symptoms in breast (principal); C50.911 Malignant neoplasm of unspecified site of right female breast | CPT/HCPCS: 99205; 99214 ==

== ENCOUNTER → 2023-07-23 13:18 | Outpatient (BNVA) | payer MEDICARE, OTHER, SELFPAY | PROVIDERS: PCP Internal Medicine; Visit Provider Surgery | DX: C50.911 Malignant neoplasm of unspecified site of right female breast (principal); N64.59 Other signs and symptoms in breast | CPT/HCPCS: 11104; 88305; 99214 ==

== ENCOUNTER 2023-08-07 11:56 | Outpatient (CLI) | payer MEDICARE, OTHER, SELFPAY ==
--- NOTE | 2023-08-07 13:15 | US_ITS ---
WS: [id number] ULTRASOUND GUIDED BIOPSY ABNORMAL RIGHT AXILLARY LYMPH NODE. HISTORY: Abnormal RIGHT axillary lymph node. History of breast cancer. Procedure, risks, and complications are explained to the patient. Consent was obtained. Skin is clean sed with ChloraPrep and anesthetized with 1% buffered lidocaine. Abnormal lymph node in the RIGHT axilla is identified for biopsy. COMPARISON: 07/09/2023 Small dermatome is made. Multiple core biopsies are performed of the abnormal lymph node with a core biopsy needle. No complications were encountered. IMPRESSION: 1. Status post core biopsy RIGHT axillary abnormal lymph node. US/US bx lymph breast/ax [id number] Pathology: Metastatic mammary carcinoma, favor ductal carcinoma. Breast prognos tic profile is pending. Recommendation: Follow-up with surgeon and oncology.
[2023-08-14 08:00] LABS: Breast Profile ER,PR,HER2,Ki-6 See Report
== END 2023-08-07 11:57 | disposition home or self-care (01) ==
LOC: RAD 11:56
PROVIDERS: PCP Internal Medicine; Visit Provider Surgery
DX: C50.911 Malignant neoplasm of unspecified site of right female breast (principal)
CPT/HCPCS: 38505; 76942; 88305; 88342; 88361; 88374

== ENCOUNTER → 2023-08-14 11:20 | Outpatient (BNVA) | payer MEDICARE, OTHER, SELFPAY | PROVIDERS: PCP Internal Medicine; Visit Provider Surgery | DX: Z09 Encounter for follow-up examination after completed treatment for conditions other than malignant neoplasm (principal) | CPT/HCPCS: 99213 ==

== ENCOUNTER 2023-08-21 07:44 | Oncology outpatient (recurring) (ONCR) | payer MEDICARE, OTHER, SELFPAY ==
[2023-08-21 09:36] LABS: Basophils % 0.5 %; Eosinophils # 0.1 10^3/uL (0.0-0.8); Eosinophils % 1.1 %; Hematocrit 41.7 % (36-47); Lymphocytes # 0.8 10^3/uL (0.8-4.8); Lymphocytes % 12.1 %; Mean Corpuscular HGB Conc 30.7 g/dL (30-55); Mean Corpuscular Hemoglobin 26.8 pg (27-33); Mean Corpuscular Volume 87.2 fl (85-98); Mean Platelet Volume 10.1 fL (7.4-10.4); Monocytes # 0.6 10^3/uL (0.2-0.9); Monocytes % 9.4 %; Neutrophils # 4.75 10^3/uL (1.8-7.7); Neutrophils % 76.6 %; Nucleated Red Blood Cells % 0 %; Platelet Count 192 10^3/cmm (157-399); Red Blood Count 4.78 10^6/uL (3.85-5.65); Red Cell Distribution Width 14.2 % (12.1-15.1)
[2023-08-21 10:04] LABS: Alanine Aminotransferase 26 U/L (0-33); Albumin Level 4.3 g/dL (3.5-5.2); Alkaline Phosphatase 69 U/L (35-105); Anion Gap 12.1 (5-19); Aspartate Amino Transferase 26 U/L (0-32); Blood Urea Nitrogen 21 mg/dL (8-23); CA 15-3 11.9 U/mL (0-25); Carbon Dioxide 30 mmol/L (22-29); Chloride 104 mmol/L (98-107); Creatinine Clr Calc Pharmacy 39.7268; Globulin 3.3 g/dL (1.3-4.6); Glucose 142 mg/dL (65-115); Osmolality Calculated 299 mOsm/kg (285-295); Potassium 4.1 mmol/L (3.5-5.1); Sodium 142 mmol/L (136-145); Total Bilirubin 0.7 mg/dL (0.15-1.2); Total Protein 7.6 g/dL (6.6-8.7)
[2023-08-21 10:29] LABS: Hepatitis A Antibody IgM Non-Reactive (Nonreactive); Hepatitis B Core AB, Total Non-Reactive (Nonreactive); Hepatitis B Surface AB < 3.5 (11.5-1000); Hepatitis B Surface Antigen Non-Reactive (Nonreactive); Hepatitis C Virus Antibody Non-Reactive (Nonreactive)
== END 2023-09-10 23:59 | disposition home or self-care (01) ==
PROVIDERS: PCP Internal Medicine; Visit Provider Internal Medicine
DX: C50.911 Malignant neoplasm of unspecified site of right female breast (principal); C09.9 Malignant neoplasm of tonsil, unspecified; I77.9 Disorder of arteries and arterioles, unspecified; Z79.899 Other long term (current) drug therapy
CPT/HCPCS: 36415; 80053; 85025; 86300; 86705; 86706; 86709; 86803; 87340; 99205

== ENCOUNTER 2023-09-03 12:09 | Outpatient (CLI) | payer MEDICARE, OTHER, SELFPAY ==
--- NOTE | 2023-09-03 12:30 | PETR_ITS ---
PROCEDURE INFORMATION: Exam: PET/CT Skull Base to Mid-thigh Exam date and time: 09/03/2023 12:49 PM Age: 87 years old Clinical indication: Condition or disease; Primary cancer: Tonsillar squamous cell carcinoma; Initial oncological staging assessment. Additional provided history breast cancer on the right. History of ultrasound guided breast biopsy. LABS AND CLINICAL REPORTS: Glucose: 83 mg/dl Treatment strategy for malignancy (PET staging): Initial Staging (PI) TECHNIQUE: Imaging protocol: Following at least four-hour fasting and following the injection of radiopharmaceutical, low dose CT images were obtained. Then, PET images were obtained. Attenuation corrected images were constructed using the CT scan. Fused images of PET and CT were reviewed. The standardized uptake values (SUV) reported below are maximum values within a region of interest, expressed in gm/ml. Exam includes orbital meatal line to mid-thigh. Radiopharmaceutical: 12.12 mCi F-18 FDG (Fluorodeoxyglucose), IV. Time of imaging post radiopharmaceutical administration: 1 hour Injection site: Right hand COMPARISON: Right axillary lymph node ultrasound-guided biopsy 08/07/2023, CTA head/neck 01/27/2021, CT angio headneck* [id number] 10/31/2020 7:15 PM FINDINGS: Limitations: The examination is slightly technically suboptimal secondary to the scan to injection time outside of recommended parameters (45-75 minutes). Reported scan to injection time of 41.8 minutes. Injection to scan times outside of recommended parameters can result in decreased PET sensitivity and limit the utility of comparison of SUV values to prior or subsequent exams. Brain: Visualized brain has normal physiologic uptake. Pharynx: No abnormal uptake. Larynx: No abnormal uptake. Lungs, pleura and trachea: No abnormal uptake. Non radiotracer avid streaky linear density compatible with scarring or atelectasis in the right middle lobe is noted. Non radiotracer avid biapical pleural scarring is present. Heart: Normal physiologic uptake. Mitral annular calcification is present. Mediastinal space: No abnormal uptake. Liver: No abnormal uptake. Rounded low-density non radiotracer avid structures in the liver are noted compatible with benign cysts or hemangiomas. Gallbladder and bile ducts: No abnormal uptake. Pancreas: No abnormal uptake. Spleen: No abnormal uptake. Adrenal glands: No abnormal uptake. Kidneys and ureters: Normal physiologic uptake. A 3-4 mm nonobstructing stone in the right renal inferior pole is present. Unremarkable left kidney. Stomach and bowel: No abnormal uptake. Vasculature: A stent in the right common carotid artery is noted. Lymph nodes: Clustered radiotracer avid right axillary lymph nodes are noted, the largest of which is in the region of the axillary tail and contains a radiodensity compatible with a biopsy clip on series 3, image 85 measuring 1.6 x 1.3 cm, SUV max 6.7. Smaller more superiorly located lymph nodes in this region demonstrated an SUV max 3.6. Bones/joints: No abnormal uptake in the visualized axial and appendicular skeleton. The bones appear demineralized. Degenerative changes in the spine are present. Soft tissues: Asymmetric fat stranding and skin thickening of the right breast is moderate without elevated uptake or discrete mass. METRICS: Mediastinal blood pool: SUV max 2.6 [facility] [id number] IMPRESSION: 1. Radiotracer avid right axillary lymphadenopathy is noted compatible with malignancy. 2. Subcutaneous edema and skin thickening of the right breast is noted without elevated uptake, possibly representing post biopsy inflammatory changes. Correlation with clinical history is recommended. 3. Additional nonurgent findings as detailed above.
== END 2023-09-03 12:10 | disposition home or self-care (01) ==
LOC: RAD 12:09
PROVIDERS: PCP Internal Medicine; Visit Provider Internal Medicine
DX: C09.9 Malignant neoplasm of tonsil, unspecified (principal); C50.919 Malignant neoplasm of unspecified site of unspecified female breast; C50.911 Malignant neoplasm of unspecified site of right female breast; I77.9 Disorder of arteries and arterioles, unspecified; R60.0 Localized edema
CPT/HCPCS: 78815; A9552

== ENCOUNTER 2023-09-05 09:15 | Outpatient (CLI) | payer MEDICARE, OTHER, SELFPAY ==
--- NOTE | 2023-09-05 09:22 | USCV_ITS ---
Carrie Winston Age: 87 Gender: F : 1935 Exam Date: 09/05/2023 09:41 Ordering Phys: Casey Ervin MD Technologist: Exam Location: [facility] – [place] Indication: high risk meds ca BP: / HR: 170 Rhythm: Sinus Technical Quality: Adequate MEASUREMENTS (Male / Female) Normal Values 2D ECHO LV Diastolic Diameter PLAX 3.9 cm 4.2 - 5.9 / 3.9 - 5.3 cm IVS Diastolic Thickness 1.0 cm 0.6 - 1.0 / 0.6 - 0.9 cm IVS Systolic Thickness 1.2 cm LVPW Diastolic Thickness 1.1 cm 0.6 - 1.0 / 0.6 - 0.9 cm LVPW Systolic Thickness 1.3 cm LVOT Diameter 1.8 cm LV Ejection Fraction 2D Teich 56.0 % LV Ejection Fraction MOD 2C 61.9 % LV Ejection Fraction 2C AL 61.2 % LA Diameter 3.4 cm RA Systolic Volume 4C AL 41.0 ml RA Systolic Volume 4C MOD 40.1 ml LA Sys Volume AL 66.1 cm cubed LA Sys Volume Index AL 42.6 cm cubed/m squared Aorta at Sinotubular Diameter 2.4 cm M-MODE LA Ao Ratio MM 1.1 AV Cusp Separation MM 2.0 cm DOPPLER AV Peak Velocity 338.7 cm/s LVOT Peak Velocity 62.0 cm/s AV Area Cont Eq vti 2.1 cm squared AV Area Cont Eq pk 0.4 cm squared MV Area PHT 4.0 cm squared Mitral E to A Ratio 3.1 TR Peak Velocity 272.0 cm/s TR Peak Gradient 29.6 mmHg TV Peak E Velocity 101.0 cm/s Right Atrial Pressure 3.0 mmHg Pulmonary Artery Systolic Pressu 32.6 mmHg PV Peak Velocity 52.0 cm/s FINDINGS Left Ventricle Normal left ventricular size and systolic function, EF 55%. No gross wall motion abnormalities.. Right Ventricle Normal right ventricular size and systolic function. Right Atrium Moderately increased right atrial size. Left Atrium Moderately increased left atrial size. Mitral Valve Moderate mitral annular calcification. Moderate mitral valve regurgitation. Aortic Valve Trace to mild aortic valve regurgitation. Tricuspid Valve Iurs-sg-zmiqhbgl tricuspid valve regurgitation. Estimated pulmonary artery peak systolic pressure 33 mmHg Pulmonic Valve Trace pulmonary valve regurgitation. Pericardium Normal pericardium without effusion. Aorta Normal ascending aorta dimension. IVC Normal inferior vena cava. CONCLUSIONS Normal left ventricular size and systolic function, EF 55%. No gross wall motion abnormalities.. Moderate biatrial enlargementModerate mitral annular calcification. Moderate mitral valve regurgitation. Trace to mild aortic valve regurgitation. Gxjy-di-aalcgyxj tricuspid valve regurgitation. Estimated pulmonary artery peak systolic pressure 33 mmHg. Trace pulmonary valve regurgitation. There is no pericardial effusion. There are no intracardiac masses. Compared to the study from 12/27/2021, there may not be a significant change Dr Suzy Kang MD FACC (Electronically Signed) Final Date: 05 September 2023 16:53 S
--- NOTE | 2023-09-05 09:30 | MR_ITS ---
WS: [id number] MRI HEAD WITH CONTRAST TECHNIQUE: Sagittal T1, T2 axial, T2 axial FLAIR, axial susceptibility weighted imaging, axial diffus ion weighted images, and coronal T2 images were obtained. Pre and post-T1 axial and post T1 coronal i mages. ADC and FSPGR images. CLINICAL INFORMATION: tonsillar squamous cell carcinoma COMPARISON: MRI 2020 FINDINGS: No evidence of restricted diffusion to suggest acute ischemia. Ventricular system and basal cisterns are patent. Moderate small vessel changes. Moderate parenchymal volume loss. Volume loss worse in the frontal lobes. Normal posterior fossa. Normal vascular flow voids at the skull base. No extra-axial fluid collections. Paranasal sinuses and mastoid air cells are well aerated. Normal posterior nasopharynx. Normal optic chiasm and pituitary infundibulum. Moderate symmetric atro phy temporal lobes and hippocampal formations. Chronic hemosiderin in the RIGHT centrum semiovale and RIGHT frontal lobe. Prior infarct RIGHT blunt radiata. No abnormal intracranial enhancement. No evidence of enhancing intracranial metastatic disease. Lesli l visualized dural venous sinuses. Small focus of susceptibility artifact and T1 hyperintensity overlying the RIGHT frontoparietal conve xity compatible with a small incidental calcified meningioma measuring 4 mm. This appears stable sinc e 2020. IMPRESSION: 1. No evidence of enhancing intracranial metastatic disease. 2. Small focus of susceptibility artifact and T1 hyperintensity overlying the RIGHT frontoparietal c onvexity compatible with a small incidental calcified meningioma measuring 4 mm. This appears stable since 2020. 3. Mild small vessel changes with moderate parenchymal volume loss. 4. No other acute findings.
[2023-09-05] MEDS: gadobenate dimeglumine 20 mL vial IV (10:37)
== END 2023-09-05 09:16 | disposition home or self-care (01) ==
LOC: RAD 09:16
PROVIDERS: PCP Internal Medicine; Visit Provider Internal Medicine
DX: C09.9 Malignant neoplasm of tonsil, unspecified (principal); I99.9 Unspecified disorder of circulatory system; I51.7 Cardiomegaly; I34.81 Nonrheumatic mitral (valve) annulus calcification; I34.0 Nonrheumatic mitral (valve) insufficiency; I35.1 Nonrheumatic aortic (valve) insufficiency; I07.1 Rheumatic tricuspid insufficiency
CPT/HCPCS: 70553; 93306; A9577

== ENCOUNTER 2023-09-26 08:30 | Oncology outpatient (recurring) (ONCR) | payer MEDICARE, OTHER, SELFPAY ==
[2023-09-17 11:50] LABS: Basophils % 0.4 %; Eosinophils # 0.1 10^3/uL (0.0-0.8); Eosinophils % 1.2 %; Hematocrit 42.3 % (36-47); Lymphocytes % 15.5 %; Mean Corpuscular HGB Conc 30.7 g/dL (30-55); Mean Corpuscular Hemoglobin 26.1 pg (27-33); Mean Corpuscular Volume 84.9 fl (85-98); Mean Platelet Volume 10.4 fL (7.4-10.4); Monocytes # 0.5 10^3/uL (0.2-0.9); Monocytes % 6.9 %; Neutrophils # 5.09 10^3/uL (1.8-7.7); Neutrophils % 75.9 %; Nucleated Red Blood Cells % 0 %; Platelet Count 213 10^3/cmm (157-399); Red Blood Count 4.98 10^6/uL (3.85-5.65); Red Cell Distribution Width 15.4 % (12.1-15.1); White Blood Count 6.71 10^3/uL (3.29-11.43)
[2023-09-17 12:10] LABS: Alanine Aminotransferase 24 U/L (0-33); Albumin Level 4.3 g/dL (3.5-5.2); Alkaline Phosphatase 64 U/L (35-105); Anion Gap 11.2 (5-19); Aspartate Amino Transferase 24 U/L (0-32); Blood Urea Nitrogen 20 mg/dL (8-23); Calcium 9.4 mg/dL (8.5-10.5); Carbon Dioxide 30 mmol/L (22-29); Chloride 103 mmol/L (98-107); Globulin 3.4 g/dL (1.3-4.6); Glucose 139 mg/dL (65-115); Osmolality Calculated 295 mOsm/kg (285-295); Potassium 4.2 mmol/L (3.5-5.1); Sodium 140 mmol/L (136-145); Total Bilirubin 0.8 mg/dL (0.15-1.2); Total Protein 7.7 g/dL (6.6-8.7)
[2023-09-26 08:53] VITALS: BP 134/84; PULSE 84; RESP 18; TEMP 36.3; O2SAT 97
[2023-09-26 09:05] LABS: Basophils % 0.4 %; Eosinophils # 0.1 10^3/uL (0.0-0.8); Eosinophils % 2.3 %; Lymphocytes # 1.1 10^3/uL (0.8-4.8); Lymphocytes % 20.8 %; Mean Corpuscular HGB Conc 30.7 g/dL (30-55); Mean Corpuscular Volume 84.7 fl (85-98); Mean Platelet Volume 10.6 fL (7.4-10.4); Monocytes # 0.4 10^3/uL (0.2-0.9); Monocytes % 8.3 %; Neutrophils # 3.63 10^3/uL (1.8-7.7); Nucleated Red Blood Cells % 0 %; Platelet Count 225 10^3/cmm (157-399); Red Blood Count 4.96 10^6/uL (3.85-5.65); Red Cell Distribution Width 15.8 % (12.1-15.1); White Blood Count 5.33 10^3/uL (3.29-11.43)
[2023-09-26 09:21] LABS: Alanine Aminotransferase 24 U/L (0-33); Albumin Level 4.2 g/dL (3.5-5.2); Alkaline Phosphatase 68 U/L (35-105); Anion Gap 10.9 (5-19); Aspartate Amino Transferase 25 U/L (0-32); Blood Urea Nitrogen 21 mg/dL (8-23); Calcium 9.9 mg/dL (8.5-10.5); Carbon Dioxide 31 mmol/L (22-29); Chloride 101 mmol/L (98-107); Creatinine Clr Calc Pharmacy 39.3996; Globulin 3.4 g/dL (1.3-4.6); Glucose 148 mg/dL (65-115); Osmolality Calculated 294 mOsm/kg (285-295); Potassium 3.9 mmol/L (3.5-5.1); Sodium 139 mmol/L (136-145); Total Bilirubin 0.6 mg/dL (0.15-1.2); Total Protein 7.6 g/dL (6.6-8.7)
[2023-09-26 10:25] LABS: CA 15-3 12.7 U/mL (0-25)
[2023-09-26] MEDS: sodium chloride 0.9% (100 ml) 100 ML 75 ML (10:29)
[2023-09-26] MEDS: ondansetron 2 mg/ML SDV 2 mL 8 MG IVP (10:50)
[2023-09-26] MEDS: famotidine 20 mg/2 mL INJ IVP (10:54)
[2023-09-26] MEDS: acetaminophen 325 mg Tablet 650 MG PO (10:57)
[2023-09-26] MEDS: diphenhydrAMINE 50 mg/mL SDV 1mL 25 MG IVP (10:58)
[2023-09-26] MEDS: pertuzumab-trastuzumab-hy-zzxf (80 mg-40 mg-2,000 units/ml) 15mL 1200 MG SUBCUT (11:27)
[2023-09-26 12:30] VITALS: BP 124/78; PULSE 84; RESP 18; TEMP 36.6; O2SAT 98
== END 2023-09-26 23:59 | disposition home or self-care (01) ==
PROVIDERS: Internal Medicine Hematology & Oncology; PCP Internal Medicine; Visit Provider Internal Medicine
DX: Z53.9 Procedure and treatment not carried out, unspecified reason (principal); Z51.11 Encounter for antineoplastic chemotherapy; C50.011 Malignant neoplasm of nipple and areola, right female breast
CPT/HCPCS: 36415; 80053; 85025; 86300; 96367; 96375; 96401; 96409; 99214; J1100; J1200; J2405; J3490; J9316

== ENCOUNTER 2023-11-07 08:00 | Oncology outpatient (recurring) (ONCR) | payer MEDICARE, OTHER, SELFPAY ==
[2023-10-17 09:03] LABS: Basophils % 0.4 %; Eosinophils # 0.1 10^3/uL (0.0-0.8); Eosinophils % 2.3 %; Hematocrit 39.9 % (36-47); Mean Corpuscular HGB Conc 31.1 g/dL (30-55); Mean Corpuscular Hemoglobin 26.6 pg (27-33); Mean Corpuscular Volume 85.6 fl (85-98); Mean Platelet Volume 10.7 fL (7.4-10.4); Monocytes # 0.4 10^3/uL (0.2-0.9); Monocytes % 8.4 %; Neutrophils # 3.51 10^3/uL (1.8-7.7); Neutrophils % 68.7 %; Nucleated Red Blood Cells % 0 %; Platelet Count 210 10^3/cmm (157-399); Red Blood Count 4.66 10^6/uL (3.85-5.65); Red Cell Distribution Width 16.4 % (12.1-15.1); White Blood Count 5.11 10^3/uL (3.29-11.43)
[2023-10-17 09:31] LABS: Alanine Aminotransferase 38 U/L (0-33); Albumin Level 4.1 g/dL (3.5-5.2); Alkaline Phosphatase 75 U/L (35-105); Aspartate Amino Transferase 36 U/L (0-32); Blood Urea Nitrogen 28 mg/dL (8-23); Calcium 9.8 mg/dL (8.5-10.5); Carbon Dioxide 30 mmol/L (22-29); Chloride 103 mmol/L (98-107); Creatinine Clr Calc Pharmacy 44.2508; Globulin 3.4 g/dL (1.3-4.6); Glucose 116 mg/dL (65-115); Osmolality Calculated 294 mOsm/kg (285-295); Sodium 139 mmol/L (136-145); Total Bilirubin 0.6 mg/dL (0.15-1.2); Total Protein 7.5 g/dL (6.6-8.7)
[2023-10-17] MEDS: acetaminophen 325 mg Tablet 650 MG PO (10:32)
[2023-10-17] MEDS: sodium chloride 0.9% 250 ML 75 ML IV (10:33)
[2023-10-17] MEDS: ondansetron 2 mg/ML SDV 2 mL 8 MG IVP (10:39)
[2023-10-17] MEDS: diphenhydrAMINE 50 mg/mL SDV 1mL 25 MG IVP (10:41)
[2023-10-17] MEDS: famotidine 20 mg/2 mL INJ IVP (11:00)
[2023-10-17] MEDS: pertuzumab-trastuzumab-hy-zzxf (60 mg-60mg-2000 units/mL) 10mL 600 MG SUBCUT (11:40)
[2023-10-17 12:01] VITALS: BP 111/74; PULSE 77; RESP 16; TEMP 35.8; O2SAT 97
[2023-11-07 08:42] LABS: Basophils % 0.2 %; Eosinophils # 0.1 10^3/uL (0.0-0.8); Eosinophils % 0.5 %; Lymphocytes # 0.8 10^3/uL (0.8-4.8); Lymphocytes % 7.7 %; Mean Corpuscular Hemoglobin 26.6 pg (27-33); Mean Platelet Volume 10.3 fL (7.4-10.4); Monocytes # 0.4 10^3/uL (0.2-0.9); Monocytes % 4.2 %; Neutrophils # 8.49 10^3/uL (1.8-7.7); Neutrophils % 87.1 %; Nucleated Red Blood Cells % 0 %; Platelet Count 193 10^3/cmm (157-399); Red Blood Count 4.77 10^6/uL (3.85-5.65); Red Cell Distribution Width 16.4 % (12.1-15.1); White Blood Count 9.75 10^3/uL (3.29-11.43)
[2023-11-07 09:03] LABS: Alanine Aminotransferase 29 U/L (0-33); Albumin Level 4.1 g/dL (3.5-5.2); Alkaline Phosphatase 78 U/L (35-105); Anion Gap 12.7 (5-19); Aspartate Amino Transferase 24 U/L (0-32); Blood Urea Nitrogen 19 mg/dL (8-23); Calcium 9.1 mg/dL (8.5-10.5); Carbon Dioxide 28 mmol/L (22-29); Chloride 103 mmol/L (98-107); Creatinine Clr Calc Pharmacy 44.2508; Globulin 3.1 g/dL (1.3-4.6); Glucose 164 mg/dL (65-115); Osmolality Calculated 296 mOsm/kg (285-295); Potassium 3.7 mmol/L (3.5-5.1); Sodium 140 mmol/L (136-145); Total Bilirubin 1.1 mg/dL (0.15-1.2); Total Protein 7.2 g/dL (6.6-8.7)
[2023-11-07 09:40] LABS: CA 15-3 11.4 U/mL (0-25)
[2023-11-07 09:41] LABS: Free T4 Free Thyroxine 1.54 ng/dL (0.82-1.77)
[2023-11-07] MEDS: sodium chloride 0.9% 250 ML 75 ML IV (10:07)
[2023-11-07] MEDS: diphenhydrAMINE 50 mg/mL SDV 1mL 25 MG IVP (10:08)
[2023-11-07] MEDS: acetaminophen 325 mg Tablet 650 MG PO (10:12)
[2023-11-07] MEDS: dexamethasone 4 mg/mL INJ 5 mL 12 MG IVP (10:15)
[2023-11-07] MEDS: famotidine 20 mg/2 mL INJ IVP (10:20)
[2023-11-07] MEDS: ondansetron 2 mg/ML SDV 2 mL 8 MG IVP (10:24)
[2023-11-07] MEDS: pertuzumab-trastuzumab-hy-zzxf (60 mg-60mg-2000 units/mL) 10mL 600 MG SUBCUT (11:10)
[2023-11-07 12:10] VITALS: BP 108/78; PULSE 68; RESP 18; TEMP 36.6; O2SAT 98
== END 2023-11-07 23:59 | disposition home or self-care (01) ==
PROVIDERS: Nurse Practitioner Family; PCP Internal Medicine; Visit Provider Internal Medicine
DX: C50.911 Malignant neoplasm of unspecified site of right female breast (principal); Z51.12 Encounter for antineoplastic immunotherapy; E03.9 Hypothyroidism, unspecified; Z79.52 Long term (current) use of systemic steroids; Z79.899 Other long term (current) drug therapy; I48.91 Unspecified atrial fibrillation; Z79.01 Long term (current) use of anticoagulants; Z92.21 Personal history of antineoplastic chemotherapy; Z92.3 Personal history of irradiation; Z85.819 Personal history of malignant neoplasm of unspecified site of lip, oral cavity, and pharynx; Z79.811 Long term (current) use of aromatase inhibitors; Z78.0 Asymptomatic menopausal state; Z17.0 Estrogen receptor positive status [ER+]; Z53.9 Procedure and treatment not carried out, unspecified reason
CPT/HCPCS: 80053; 84439; 84443; 85025; 86300; 96367; 96375; 96401; 96402; 96409; 99214; J1100; J1200; J2405; J3490; J7050; J9316

== ENCOUNTER 2023-11-18 14:41 | Outpatient (CLI) | payer MEDICARE, OTHER, SELFPAY ==
--- NOTE | 2023-11-18 15:00 | XR_ITS ---
WS: [id number] SCREENING DEXA SCAN [employer] [employer] CLINICAL INFORMATION: AI use, post menopausal COMPARISON: None. FINDINGS: The L1-L4 bone mineral density measures 0.914 g/cm2. This corresponds to a T score score of -2.2 and Z score of 0.2. Left femoral neck bone mineral density measures 0.842 g/cm2. This corresponds to a T score of -1.3 an d Z score of 1.4. Right femoral neck bone mineral density measures 0.827 g/cm2. This corresponds to a T score -1.4of an d Z score of 1.3. Mean femoral neck bone mineral density measures 0.834 g/cm2. This corresponds to a T score of -1.4 an d Z score of 1.3. XR/XR DEXA axial skeleton* [id number] IMPRESSION: Osteopenia lumbar spine. Osteopenia femoral necks. Patient's FRAX calculated 10 year probability for major osteoporotic fracture i s 9.3% and osteoporotic hip fracture is 2.6%.
== END 2023-11-18 14:42 | disposition home or self-care (01) ==
LOC: RAD 14:42
PROVIDERS: PCP Internal Medicine; Visit Provider Nurse Practitioner Family
DX: Z78.0 Asymptomatic menopausal state (principal); Z79.811 Long term (current) use of aromatase inhibitors; Z91.89 Other specified personal risk factors, not elsewhere classified; M85.88 Other specified disorders of bone density and structure, other site
CPT/HCPCS: 77080

== ENCOUNTER 2023-12-03 14:00 | Oncology outpatient (recurring) (ONCR) | payer MEDICARE, OTHER, SELFPAY ==
[2023-11-28 10:08] LABS: Basophils % 0.5 %; Eosinophils # 0.1 10^3/uL (0.0-0.8); Eosinophils % 1.3 %; Hematocrit 42.2 % (36-47); Lymphocytes # 1.4 10^3/uL (0.8-4.8); Mean Corpuscular HGB Conc 30.8 g/dL (30-55); Mean Corpuscular Hemoglobin 26.7 pg (27-33); Mean Corpuscular Volume 86.8 fl (85-98); Mean Platelet Volume 10.7 fL (7.4-10.4); Monocytes # 0.4 10^3/uL (0.2-0.9); Monocytes % 6.7 %; Neutrophils # 4.15 10^3/uL (1.8-7.7); Neutrophils % 68.2 %; Nucleated Red Blood Cells % 0 %; Platelet Count 208 10^3/cmm (157-399); Red Blood Count 4.86 10^6/uL (3.85-5.65); Red Cell Distribution Width 16.1 % (12.1-15.1); White Blood Count 6.09 10^3/uL (3.29-11.43)
[2023-11-28 10:40] LABS: Alanine Aminotransferase 37 U/L (0-33); Albumin Level 4.2 g/dL (3.5-5.2); Alkaline Phosphatase 71 U/L (35-105); Aspartate Amino Transferase 28 U/L (0-32); Blood Urea Nitrogen 20 mg/dL (8-23); CA 15-3 12.4 U/mL (0-25); Calcium 9.5 mg/dL (8.5-10.5); Carbon Dioxide 27 mmol/L (22-29); Chloride 101 mmol/L (98-107); Globulin 3.1 g/dL (1.3-4.6); Glucose 143 mg/dL (65-115); Osmolality Calculated 289 mOsm/kg (285-295); Sodium 137 mmol/L (136-145); Total Bilirubin 0.8 mg/dL (0.15-1.2); Total Protein 7.3 g/dL (6.6-8.7)
[2023-11-28 10:48] LABS: Anion Gap 12.9 (5-19); Potassium 3.9 mmol/L (3.5-5.1)
[2023-11-28 11:10] LABS: Free T4 Free Thyroxine 1.59 ng/dL (0.82-1.77)
[2023-11-28] MEDS: acetaminophen 325 mg Tablet 650 MG PO (12:16)
[2023-11-28] MEDS: sodium chloride 0.9% 250 ML 75 ML IV (12:16)
[2023-11-28] MEDS: diphenhydrAMINE 50 mg/mL SDV 1mL 25 MG IVP (12:18)
[2023-11-28] MEDS: famotidine 20 mg/2 mL INJ IVP (12:23)
[2023-11-28] MEDS: ondansetron 2 mg/ML SDV 2 mL 8 MG IVP (12:28)
[2023-11-28] MEDS: dexamethasone 4 mg/mL INJ 5 mL 12 MG IV (12:35)
[2023-11-28] MEDS: pertuzumab-trastuzumab-hy-zzxf (60 mg-60mg-2000 units/mL) 10mL 600 MG SUBCUT (13:06)
[2023-11-28 13:26] VITALS: BP 122/84; PULSE 72; RESP 17; TEMP 36.6; O2SAT 98
--- NOTE | 2023-12-03 14:00 | PETR_ITS ---
PROCEDURE INFORMATION: Exam: PET/CT Skull Base to Mid-thigh Exam date and time: 12/03/2023 1:34 PM Age: 88 years old Clinical indication: Condition or disease; Primary cancer: Breast cancer, malignant neoplasm of tonsil; Additional info: Early satiety LABS AND CLINICAL REPORTS: Glucose: 115 mg/dl Treatment strategy for malignancy (PET staging): Restaging (PS) TECHNIQUE: Imaging protocol: Following at least four-hour fasting and following the injection of radiopharmaceutical, low dose CT images were obtained. Then, PET images were obtained. Attenuation corrected images were constructed using the CT scan. Fused images of PET and CT were reviewed. The standardized uptake values (SUV) reported below are maximum values within a region of interest, expressed in gm/ml. Exam includes orbital meatal line to mid-thigh. Radiopharmaceutical: 15.14 mCi F-18 FDG (Fluorodeoxyglucose), IV. Time of imaging post radiopharmaceutical administration: 1 hour Injection site: Left antecubital vein COMPARISON: PT PET skull to thigh INIT [id number] 09/03/2023 FINDINGS: Brain: Visualized brain has normal physiologic uptake. Pharynx: No abnormal uptake. Larynx: No abnormal uptake. Lungs, pleura and trachea: No abnormal uptake. No lung nodules or masses. No pleural effusion. Heart: Normal physiologic uptake. There is no cardiomegaly. Coronary artery calcification is present. There is no pericardial effusion. Mediastinal space: No abnormal uptake. Liver: No abnormal uptake. Stable simple cysts in the liver including the largest 3.4 cm cyst in the segment 8. Gallbladder and biliary ducts: No abnormal uptake. No calcified gallstones. Pancreas: No abnormal uptake. Spleen: No abnormal uptake. Adrenal glands: No abnormal uptake. No nodules. Kidneys and ureters: Normal physiologic uptake. No hydronephrosis. Nonobstructive 3 mm stone in the right kidney. Stomach and bowel: No abnormal uptake. Moderate stool burden for clinical correlation with constipation. Intraperitoneal and retroperitoneal spaces: No abnormal uptake. Small amount of free intraperitoneal fluid. Bladder: Normal physiologic uptake. Reproductive: No abnormal uptake. Vasculature: No abnormal uptake. No aortic aneurysm. Lymph nodes: 1.3 x 0.9 cm right axillary lymph node measures 4 SUV decreased from 6.7 SUV on the prior exam suggestive of partial response to treatment. Other smaller right axillary lymph nodes that were FDG avid on the prior exam have resolved. No FDG avid lymphadenopathy in the head, neck, chest, abdomen, pelvis, left axilla and the groins. Skeleton: No abnormal uptake in the visualized axial and appendicular skeleton. Soft tissues: No abnormal uptake in the visualized head, neck, chest, abdomen, pelvis, and extremities. Persistent diffuse skin thickening and increased density of the subcutaneous fat in the right breast. PET/PET skull to thigh SUBS [id number] IMPRESSION: Decrease in uptake and number of FDG avid lymph nodes in the right axilla in keeping with partial response to treatment. Stable diffuse skin thickening and soft tissue edema in the right breast. No new or progressive FDG avid findings.
== END 2023-12-03 23:59 | disposition home or self-care (01) ==
LOC: RAD 12-04 00:01 → ONCMED 12-04 08:31
PROVIDERS: PCP Internal Medicine; Visit Provider Nurse Practitioner Family
DX: Z53.9 Procedure and treatment not carried out, unspecified reason (principal); C09.9 Malignant neoplasm of tonsil, unspecified; R68.81 Early satiety; C50.911 Malignant neoplasm of unspecified site of right female breast
CPT/HCPCS: 78815; 80053; 84439; 84443; 85025; 86300; 96375; 96402; 96409; 99214; A9552; J1100; J1200; J2405; J3490; J7050; J9316

== ENCOUNTER 2024-01-06 09:26 | Outpatient (CLI) | payer MEDICARE, OTHER, SELFPAY ==
--- NOTE | 2024-01-06 09:30 | MR_ITS ---
WS: [id number] MRI BRAIN WITH AND WITHOUT CONTRAST HISTORY: HER2 positive breast cancer COMPARISON: 09/05/2023 TECHNIQUE: Multiplanar imaging performed through the brain with MultiHance 10 ml's IV. No acute infarcts are seen. Watson-white matter differentiation is well preserved. Reidentified is some moderate small vessel ischemic changes in the moderate volume loss. Slightly greater volume loss inv olving the frontal lobes. No interval progression or change. The small focus of susceptibility artifact and T1 hyperintensity overlying the RIGHT frontoparietal c onvexity is unchanged and measuring about 4 to 5 mm. This is probably a small meningioma. Ventricles and extra-axial spaces are otherwise normal. Clivus and pituitary gland are normal. Visualized posterior fossa and brainstem are also normal. Postcontrast images are negative for masses or vascular malformations. Dural venous sinuses are normal. Paranasal sinuses: Well aerated with no significant disease. Mastoid air cells: Normal. Calvarium and scalp: Normal. MR/MR head wo/w con [id number] IMPRESSION: 1. No evidence for metastatic disease to the brain. 2. Moderate volume loss and small vessel ischemic changes, stable. 3. No interval change in the possible 4 to 5 mm hemangioma over the RIGHT fron toparietal convexity. 4. Mild hippocampal atrophy.
[2024-01-06] MEDS: gadobenate dimeglumine 20 mL vial 10 ML IV (10:10)
== END 2024-01-06 09:27 | disposition home or self-care (01) ==
LOC: RAD 09:28
PROVIDERS: PCP Internal Medicine; Visit Provider Nurse Practitioner Family
DX: C50.911 Malignant neoplasm of unspecified site of right female breast (principal); E86.9 Volume depletion, unspecified; I67.82 Cerebral ischemia; R90.89 Other abnormal findings on diagnostic imaging of central nervous system; R68.81 Early satiety
CPT/HCPCS: 70553; A9577

== ENCOUNTER 2024-01-09 09:00 | Oncology outpatient (recurring) (ONCR) | payer MEDICARE, OTHER, SELFPAY ==
[2023-12-19 08:53] LABS: Basophils % 0.6 %; Eosinophils # 0.1 10^3/uL (0.0-0.8); Eosinophils % 1.8 %; Hematocrit 42.7 % (36-47); Lymphocytes # 1.1 10^3/uL (0.8-4.8); Lymphocytes % 22.2 %; Mean Corpuscular HGB Conc 30.7 g/dL (30-55); Mean Corpuscular Hemoglobin 26.5 pg (27-33); Mean Corpuscular Volume 86.4 fl (85-98); Mean Platelet Volume 10.7 fL (7.4-10.4); Monocytes # 0.3 10^3/uL (0.2-0.9); Monocytes % 6.7 %; Neutrophils # 3.45 10^3/uL (1.8-7.7); Neutrophils % 68.3 %; Nucleated Red Blood Cells % 0 %; Platelet Count 210 10^3/cmm (157-399); Red Blood Count 4.94 10^6/uL (3.85-5.65); Red Cell Distribution Width 16.1 % (12.1-15.1); White Blood Count 5.05 10^3/uL (3.29-11.43)
[2023-12-19 09:14] LABS: Alanine Aminotransferase 44 U/L (0-33); Albumin Level 4.1 g/dL (3.5-5.2); Alkaline Phosphatase 76 U/L (35-105); Blood Urea Nitrogen 18 mg/dL (8-23); Calcium 9.5 mg/dL (8.5-10.5); Carbon Dioxide 26 mmol/L (22-29); Chloride 101 mmol/L (98-107); Globulin 3.1 g/dL (1.3-4.6); Glucose 169 mg/dL (65-115); Osmolality Calculated 290 mOsm/kg (285-295); Sodium 137 mmol/L (136-145); Total Bilirubin 0.8 mg/dL (0.15-1.2); Total Protein 7.2 g/dL (6.6-8.7)
[2023-12-19 09:17] LABS: Anion Gap 14.1 (5-19); Aspartate Amino Transferase 41 U/L (0-32); Potassium 4.1 mmol/L (3.5-5.1)
[2023-12-19 10:01] LABS: CA 15-3 13.2 U/mL (0-25)
[2023-12-19] MEDS: acetaminophen 325 mg Tablet 650 MG PO (11:05)
[2023-12-19] MEDS: diphenhydrAMINE 25 mg Capsule PO (11:05)
[2023-12-19] MEDS: pertuzumab-trastuzumab-hy-zzxf (60 mg-60mg-2000 units/mL) 10mL 600 MG SUBCUT (12:01)
[2024-01-09 09:15] LABS: Basophils % 0.8 %; Eosinophils # 0.1 10^3/uL (0.0-0.8); Eosinophils % 1.9 %; Hematocrit 41.1 % (36-47); Lymphocytes # 0.8 10^3/uL (0.8-4.8); Lymphocytes % 15.6 %; Mean Corpuscular HGB Conc 30.7 g/dL (30-55); Mean Corpuscular Hemoglobin 26.6 pg (27-33); Mean Corpuscular Volume 86.9 fl (85-98); Mean Platelet Volume 10.1 fL (7.4-10.4); Monocytes # 0.4 10^3/uL (0.2-0.9); Monocytes % 7.1 %; Neutrophils % 74.4 %; Nucleated Red Blood Cells % 0 %; Platelet Count 218 10^3/cmm (157-399); Red Blood Count 4.73 10^6/uL (3.85-5.65); Red Cell Distribution Width 15.6 % (12.1-15.1); White Blood Count 5.24 10^3/uL (3.29-11.43)
[2024-01-09 09:46] LABS: Alanine Aminotransferase 24 U/L (0-33); Albumin Level 4.3 g/dL (3.5-5.2); Alkaline Phosphatase 64 U/L (35-105); Anion Gap 13.7 (5-19); Aspartate Amino Transferase 24 U/L (0-32); Blood Urea Nitrogen 22 mg/dL (8-23); CA 15-3 13.3 U/mL (0-25); Calcium 9.6 mg/dL (8.5-10.5); Carbon Dioxide 29 mmol/L (22-29); Chloride 100 mmol/L (98-107); Creatinine Clr Calc Pharmacy 39.4037; Globulin 2.8 g/dL (1.3-4.6); Glucose 175 mg/dL (65-115); Osmolality Calculated 296 mOsm/kg (285-295); Potassium 3.7 mmol/L (3.5-5.1); Sodium 139 mmol/L (136-145); Total Bilirubin 0.8 mg/dL (0.15-1.2); Total Protein 7.1 g/dL (6.6-8.7)
[2024-01-09] MEDS: diphenhydrAMINE 25 mg Capsule PO (11:01)
[2024-01-09] MEDS: acetaminophen 325 mg Tablet 650 MG PO (11:01)
[2024-01-09] MEDS: pertuzumab-trastuzumab-hy-zzxf (60 mg-60mg-2000 units/mL) 10mL 600 MG SUBCUT (11:36)
[2024-01-09 11:56] VITALS: BP 118/68; PULSE 74; RESP 18; TEMP 36.6; O2SAT 96
== END 2024-01-09 23:59 | disposition home or self-care (01) ==
PROVIDERS: Nurse Practitioner Family; PCP Internal Medicine; Visit Provider Nurse Practitioner Family
DX: Z51.12 Encounter for antineoplastic immunotherapy (principal); C50.911 Malignant neoplasm of unspecified site of right female breast; Z53.9 Procedure and treatment not carried out, unspecified reason; C09.9 Malignant neoplasm of tonsil, unspecified; Z91.89 Other specified personal risk factors, not elsewhere classified; Z86.79 Personal history of other diseases of the circulatory system; Z79.899 Other long term (current) drug therapy; Z79.52 Long term (current) use of systemic steroids
CPT/HCPCS: 36415; 80053; 85025; 86300; 96402; 96409; 99214; J9316

== ENCOUNTER 2024-01-30 08:15 | Oncology outpatient (recurring) (ONCR) | payer MEDICARE, OTHER, SELFPAY ==
--- NOTE | 2024-01-20 11:19 | USCV_ITS ---
Carrie Winston Age: 88 Gender: F : 1935 Exam Date: 01/20/2024 11:30 Ordering Phys: Nicole Malhotra APRN Technologist: CT Exam Location: [facility] [place] Indication: high risk meds BP: 111 / 68 HR: 100 Rhythm: Sinus Technical Quality: Adequate MEASUREMENTS (Male / Female) Normal Values 2D ECHO LVOT Diameter 2.1 cm LV Ejection Fraction MOD 4C 61.0 % LV Ejection Fraction MOD 2C 60.1 % LV Ejection Fraction 2C AL 63.9 % LA Diameter 4.3 cm RA Systolic Volume 4C AL 75.6 ml RA Systolic Volume 4C MOD 72.4 ml LA Sys Volume AL 77.1 cm cubed LA Sys Volume Index AL 50.3 cm cubed/m squared Aorta at Sinotubular Diameter 2.8 cm IVC Diameter 1.9 cm M-MODE LA Ao Ratio MM 1.9 AV Cusp Separation MM 1.8 cm DOPPLER AV Peak Velocity 96.0 cm/s LVOT Peak Velocity 77.0 cm/s AV Area Cont Eq vti 3.1 cm squared AV Area Cont Eq pk 2.7 cm squared MV Peak Velocity 100.0 cm/s MV Area PHT 5.0 cm squared Mitral E to A Ratio 3.7 TR Peak Velocity 267.0 cm/s TR Peak Gradient 28.5 mmHg TV Peak E Velocity 74.0 cm/s Right Atrial Pressure 3.0 mmHg Pulmonary Artery Systolic Pressu 31.5 mmHg FINDINGS Left Ventricle Normal left ventricular size and systolic function, EF 60%.no regional wall motion abnormalities. Right Ventricle Normal right ventricular systolic function. Right Atrium Moderately increased right atrial size. Left Atrium Moderately increased left atrial size. Mitral Valve Moderate mitral annular calcification. Moderate mitral valve regurgitation. Aortic Valve Mild aortic valve regurgitation. Tricuspid Valve Vzkw-pf-rvsnykap tricuspid valve regurgitation. Estimated pulmonary artery peak systolic pressure 32 mmHg Pulmonic Valve Mild pulmonary valve regurgitation. Pericardium No pericardial effusion. Aorta Normal aortic annulus size. IVC Normal IVC dimension with >50% respiratory change of the inferior vena cava. CONCLUSIONS Normal left ventricular size and systolic function, EF 60%.no regional wall motion abnormalities. Moderate biatrial enlargement. Moderate mitral annular calcification. Moderate mitral valve regurgitation. Mild aortic valve regurgitation. Cgif-ni-eyiqsuaw tricuspid valve regurgitation. Estimated pulmonary artery peak systolic pressure 32 mmHg. Mild pulmonary valve regurgitation. There is no pericardial effusion. There are no intracardiac masses. Compared to the study from 12/27/2021, there is some worsening of the mitral regurgitation Dr Suzy Kang MD FAC (Electronically Signed) Final Date: 21 January 2024 09:51 S
[2024-01-30] MEDS: acetaminophen 325 mg Tablet 650 MG PO (10:15)
[2024-01-30] MEDS: diphenhydrAMINE 25 mg Capsule PO (10:15)
[2024-01-30] MEDS: pertuzumab-trastuzumab-hy-zzxf (60 mg-60mg-2000 units/mL) 10mL 600 MG SUBCUT (10:55)
[2024-01-30 13:00] VITALS: BP 120/78; PULSE 74; RESP 18; TEMP 36.6; O2SAT 94
== END 2024-01-30 23:59 | disposition home or self-care (01) ==
PROVIDERS: PCP Internal Medicine; Visit Provider Nurse Practitioner Family
DX: Z53.9 Procedure and treatment not carried out, unspecified reason (principal); Z51.12 Encounter for antineoplastic immunotherapy; C09.9 Malignant neoplasm of tonsil, unspecified; Z79.811 Long term (current) use of aromatase inhibitors; Z78.0 Asymptomatic menopausal state; Z91.89 Other specified personal risk factors, not elsewhere classified; Z86.79 Personal history of other diseases of the circulatory system; C50.919 Malignant neoplasm of unspecified site of unspecified female breast
CPT/HCPCS: 36415; 80053; 85025; 86300; 93306; 96402; 99214; J9316

== ENCOUNTER 2024-03-12 09:00 | Oncology outpatient (recurring) (ONCR) | payer MEDICARE, OTHER, SELFPAY ==
[2024-02-20 10:22] LABS: Basophils % 0.6 %; Eosinophils # 0.1 10^3/uL (0.0-0.8); Eosinophils % 1.5 %; Lymphocytes # 1.3 10^3/uL (0.8-4.8); Lymphocytes % 19.2 %; Mean Corpuscular HGB Conc 30.5 g/dL (30-55); Mean Corpuscular Hemoglobin 26.1 pg (27-33); Mean Corpuscular Volume 85.5 fl (85-98); Mean Platelet Volume 10.5 fL (7.4-10.4); Monocytes # 0.5 10^3/uL (0.2-0.9); Neutrophils # 4.75 10^3/uL (1.8-7.7); Neutrophils % 70.6 %; Nucleated Red Blood Cells % 0 %; Platelet Count 229 10^3/cmm (157-399); Red Blood Count 4.91 10^6/uL (3.85-5.65); Red Cell Distribution Width 14.8 % (12.1-15.1); White Blood Count 6.73 10^3/uL (3.29-11.43)
[2024-02-20 11:07] LABS: Alanine Aminotransferase 25 U/L (0-33); Albumin Level 4.2 g/dL (3.5-5.2); Alkaline Phosphatase 64 U/L (35-105); Anion Gap 11.8 (5-19); Aspartate Amino Transferase 26 U/L (0-32); Blood Urea Nitrogen 23 mg/dL (8-23); Calcium 9.9 mg/dL (8.5-10.5); Carbon Dioxide 31 mmol/L (22-29); Chloride 102 mmol/L (98-107); Creatinine Clr Calc Pharmacy 38.1049; Globulin 3.3 g/dL (1.3-4.6); Glucose 125 mg/dL (65-115); Osmolality Calculated 297 mOsm/kg (285-295); Potassium 3.8 mmol/L (3.5-5.1); Sodium 141 mmol/L (136-145); Total Bilirubin 0.7 mg/dL (0.15-1.2); Total Protein 7.5 g/dL (6.6-8.7)
[2024-02-20 12:12] VITALS: BP 108/76; PULSE 78; RESP 18; TEMP 36.6; O2SAT 96
[2024-02-20] MEDS: diphenhydrAMINE 25 mg Capsule PO (12:14)
[2024-02-20] MEDS: acetaminophen 325 mg Tablet 650 MG PO (12:14)
[2024-02-20] MEDS: pertuzumab-trastuzumab-hy-zzxf (60 mg-60mg-2000 units/mL) 10mL 600 MG SUBCUT (12:44)
[2024-02-20 22:48] LABS: CA 15-3 13.9 U/mL (0-25)
[2024-03-12 09:43] LABS: Basophils % 0.5 %; Eosinophils # 0.1 10^3/uL (0.0-0.8); Eosinophils % 1.1 %; Lymphocytes # 0.7 10^3/uL (0.8-4.8); Lymphocytes % 11.2 %; Mean Corpuscular HGB Conc 30.7 g/dL (30-55); Mean Corpuscular Hemoglobin 26.1 pg (27-33); Mean Corpuscular Volume 84.8 fl (85-98); Mean Platelet Volume 10.3 fL (7.4-10.4); Monocytes # 0.4 10^3/uL (0.2-0.9); Monocytes % 6.4 %; Neutrophils % 80.5 %; Nucleated Red Blood Cells % 0 %; Platelet Count 227 10^3/cmm (157-399); Red Blood Count 4.95 10^6/uL (3.85-5.65); Red Cell Distribution Width 14.6 % (12.1-15.1); White Blood Count 6.09 10^3/uL (3.29-11.43)
[2024-03-12 10:15] LABS: Alanine Aminotransferase 26 U/L (0-33); Albumin Level 4.2 g/dL (3.5-5.2); Alkaline Phosphatase 67 U/L (35-105); Anion Gap 11.1 (5-19); Aspartate Amino Transferase 24 U/L (0-32); Blood Urea Nitrogen 28 mg/dL (8-23); CA 15-3 13.9 U/mL (0-25); Calcium 9.8 mg/dL (8.5-10.5); Carbon Dioxide 31 mmol/L (22-29); Chloride 102 mmol/L (98-107); Creatinine Clr Calc Pharmacy 42.8681; Glucose 105 mg/dL (65-115); Lactate Dehydrogenase 196 U/L (135-214); Osmolality Calculated 296 mOsm/kg (285-295); Potassium 4.1 mmol/L (3.5-5.1); Sodium 140 mmol/L (136-145); Thyroid Stimulating Hormone 0.38 uIU/mL (0.27-4.20); Total Bilirubin 0.7 mg/dL (0.15-1.2); Total Protein 7.2 g/dL (6.6-8.7)
[2024-03-12] MEDS: acetaminophen 325 mg Tablet 650 MG PO (11:11)
[2024-03-12] MEDS: diphenhydrAMINE 25 mg Capsule PO (11:11)
[2024-03-12] MEDS: pertuzumab-trastuzumab-hy-zzxf (60 mg-60mg-2000 units/mL) 10mL 600 MG SUBCUT (11:35)
[2024-03-12 12:11] VITALS: BP 121/78; PULSE 60; RESP 16; TEMP 36.6; O2SAT 98
== END 2024-03-12 23:59 | disposition home or self-care (01) ==
PROVIDERS: Internal Medicine Hematology & Oncology; Nurse Practitioner Family; PCP Internal Medicine; Visit Provider Nurse Practitioner Family
DX: Z53.9 Procedure and treatment not carried out, unspecified reason; Z51.12 Encounter for antineoplastic immunotherapy; C50.911 Malignant neoplasm of unspecified site of right female breast; E78.00 Pure hypercholesterolemia, unspecified; Z79.811 Long term (current) use of aromatase inhibitors; Z78.0 Asymptomatic menopausal state; Z91.89 Other specified personal risk factors, not elsewhere classified; Z79.899 Other long term (current) drug therapy
CPT/HCPCS: 36415; 80053; 83615; 84443; 85025; 86300; 96402; 99214; J9316

== ENCOUNTER 2024-04-02 14:45 | Oncology outpatient (recurring) (ONCR) | payer MEDICARE, OTHER, SELFPAY ==
[2024-03-31] MEDS: iohexol 350 mg/mL 500 mL Btl (per mL) PO (12:12)
--- NOTE | 2024-03-31 13:00 | CTR_ITS ---
PROCEDURE INFORMATION: Exam: CT Chest With Contrast; Diagnostic Exam date and time: 03/31/2024 1:07 PM Age: 88 years old Clinical indication: Condition or disease; Other: Breast cancer; Primary cancer: Breast, throat; Prior surgery; Surgery date: 6+ months; Surgery type: RT ovary, appy; Additional info: Followup of breast cancer, please compare to pet/ct on 12/03/23 TECHNIQUE: Imaging protocol: Diagnostic computed tomography of the chest with contrast. Radiation optimization: All CT scans at this facility use at least one of these dose optimization techniques: automated exposure control; mA and/or kV adjustment per patient size (includes targeted exams where dose is matched to clinical indication); or iterative reconstruction. Contrast material: OMNI 350; Contrast volume: 100 ml; Contrast route: INTRAVENOUS (IV); COMPARISON: PT PET skull to thigh SUBS [id number] 12/03/2023 1:34 PM RADIATION DOSE METRICS: Total DLP (mGy-cm): 438.83 FINDINGS: Lungs: Interstitial prominence, chronic granulomatous disease, and bibasilar parenchymal stranding. Bilateral subpleural apical airspace disease and pleural thickening. Pleural spaces: No dependent pleural effusion. Heart: Borderline cardiomegaly. Coronary artery and mitral annular calcification. Lymph nodes: 1.7 x 1.4 x 2.3 cm right axillary lymph node, containing a punctate calcification. On the previous PET-CT, this measured 1.3 x 0.8 cm. Vasculature: Calcification and ectasia of the thoracic aorta. Bones/joints: Schmorl's nodes and degenerative change. Soft tissues: Infiltration of subcutaneous fat in the right axilla. Prominent right breast skin thickening and edema. Additional punctate right breast calcifications. PROCEDURE INFORMATION: Exam: CT Abdomen And Pelvis With Contrast Exam date and time: 03/31/2024 1:07 PM Age: 88 years old Clinical indication: Condition or disease; Other: Breast cancer; Primary cancer: Breast, throat; Prior surgery; Surgery date: 6+ months; Surgery type: RT ovary, appy; Additional info: Followup of breast cancer, please compare to pet/ct on 12/03/23 TECHNIQUE: Imaging protocol: Computed tomography of the abdomen and pelvis with contrast. Radiation optimization: All CT scans at this facility use at least one of these dose optimization techniques: automated exposure control; mA and/or kV adjustment per patient size (includes targeted exams where dose is matched to clinical indication); or iterative reconstruction. Contrast material: OMNI 350; Contrast volume: 100 ml; Contrast route: INTRAVENOUS (IV); COMPARISON: PT PET skull to thigh SUBS [id number] 12/03/2023 1:34 PM RADIATION DOSE METRICS: Total DLP (mGy-cm): 438.83 FINDINGS: Liver: Fatty infiltration of the liver and hepatic cysts, the largest measuring 3.2 x 2.7 cm, which is stable when correlating with the previous PET-CT. Gallbladder and biliary ducts: Contracted gallbladder. Pancreas: Biliary and mild pancreatic ductal dilatation. Spleen: No splenomegaly. Adrenal glands: Mild left adrenal enlargement. Kidneys and ureters: 2 mm nonobstructing right renal calculus. Bilateral renal cysts, including a 1.6 cm left renal cyst, which was poorly visualized on the previous noncontrast PET-CT. Stomach and bowel: Mild bowel dilatation and prominent stool, in a pattern suggesting constipation. Appendix: Nonvisualization of the appendix. Intraperitoneal space: No significant intraperitoneal fluid. Vasculature: Vascular calcification. Normal caliber of the abdominal aorta. Lymph nodes: Subcentimeter lymph nodes. Urinary bladder: Wall thickening in the decompressed bladder. Reproductive: Unremarkable as visualized. Bones/joints: Osteopenia, mild vertebral endplate depression, and degenerative change. Soft tissues: Unremarkable. CT/CT chest abdpel w/*[id number] IMPRESSION: 1. Prominent right breast skin thickening and edema. 2. 1.7 x 1.4 x 2.3 cm right axillary lymph node, containing a punctate calcification. On the previous PET-CT, this measured 1.3 x 0.8 cm. 3. Additional findings as described above. IMPRESSION: 1. No intra-abdominal or pelvic metastasis. 2. Additional findings as described above.
[2024-03-31] MEDS: iohexol 350 mg/mL 500 mL Btl (per mL) IV (13:15)
[2024-04-01 14:57] LABS: Basophils % 0.5 %; Eosinophils # 0.1 10^3/uL (0.0-0.8); Hematocrit 37.2 % (36-47); Lymphocytes # 0.9 10^3/uL (0.8-4.8); Lymphocytes % 15.5 %; Mean Corpuscular HGB Conc 29.8 g/dL (30-55); Mean Corpuscular Hemoglobin 24.9 pg (27-33); Mean Corpuscular Volume 83.6 fl (85-98); Mean Platelet Volume 10.2 fL (7.4-10.4); Monocytes # 0.4 10^3/uL (0.2-0.9); Monocytes % 6.6 %; Neutrophils # 4.52 10^3/uL (1.8-7.7); Neutrophils % 76.1 %; Nucleated Red Blood Cells % 0 %; Platelet Count 206 10^3/cmm (157-399); Red Blood Count 4.45 10^6/uL (3.85-5.65); Red Cell Distribution Width 14.6 % (12.1-15.1); White Blood Count 5.94 10^3/uL (3.29-11.43)
[2024-04-01 15:19] LABS: Alanine Aminotransferase 58 U/L (0-33); Alkaline Phosphatase 75 U/L (35-105); Anion Gap 12.2 (5-19); Aspartate Amino Transferase 48 U/L (0-32); Blood Urea Nitrogen 22 mg/dL (8-23); Calcium 9.5 mg/dL (8.5-10.5); Carbon Dioxide 29 mmol/L (22-29); Chloride 99 mmol/L (98-107); Globulin 2.9 g/dL (1.3-4.6); Glucose 178 mg/dL (65-115); Lactate Dehydrogenase 230 U/L (135-214); Magnesium 1.7 mg/dL (1.7-2.3); Osmolality Calculated 290 mOsm/kg (285-295); Potassium 4.2 mmol/L (3.5-5.1); Sodium 136 mmol/L (136-145); Total Bilirubin 0.6 mg/dL (0.15-1.2); Total Protein 6.9 g/dL (6.6-8.7)
[2024-04-02] MEDS: acetaminophen 325 mg Tablet 650 MG PO (15:33)
[2024-04-02 15:34] VITALS: BP 116/84; PULSE 97; RESP 17; TEMP 36.9; O2SAT 99
[2024-04-02] MEDS: diphenhydrAMINE 25 mg Capsule PO (15:34)
[2024-04-02] MEDS: pertuzumab-trastuzumab-hy-zzxf (60 mg-60mg-2000 units/mL) 10mL 600 MG SUBCUT (16:12)
[2024-04-02 16:40] VITALS: BP 112/78; PULSE 64; RESP 18; TEMP 36.6; O2SAT 98
== END 2024-04-02 23:59 | disposition home or self-care (01) ==
PROVIDERS: PCP Internal Medicine; Visit Provider Internal Medicine Hematology & Oncology
DX: C50.911 Malignant neoplasm of unspecified site of right female breast; Z51.11 Encounter for antineoplastic chemotherapy; Z79.899 Other long term (current) drug therapy; Z53.9 Procedure and treatment not carried out, unspecified reason
CPT/HCPCS: 36415; 71260; 74177; 80053; 83615; 83735; 85025; 96402; J9316

== ENCOUNTER 2024-04-23 09:30 | Oncology outpatient (recurring) (ONCR) | payer MEDICARE, OTHER, SELFPAY ==
[2024-04-22 13:55] LABS: Basophils % 0.3 %; Eosinophils # 0.1 10^3/uL (0.0-0.8); Eosinophils % 0.9 %; Lymphocytes % 13.2 %; Mean Corpuscular HGB Conc 29.7 g/dL (30-55); Mean Corpuscular Hemoglobin 25.3 pg (27-33); Mean Platelet Volume 10.6 fL (7.4-10.4); Monocytes # 0.6 10^3/uL (0.2-0.9); Monocytes % 7.7 %; Neutrophils # 5.74 10^3/uL (1.8-7.7); Neutrophils % 77.6 %; Nucleated Red Blood Cells % 0 %; Platelet Count 214 10^3/cmm (157-399); Red Blood Count 4.47 10^6/uL (3.85-5.65); Red Cell Distribution Width 14.6 % (12.1-15.1)
[2024-04-22 14:18] LABS: Alanine Aminotransferase 20 U/L (0-33); Albumin Level 4.2 g/dL (3.5-5.2); Alkaline Phosphatase 76 U/L (35-105); Anion Gap 14.1 (5-19); Aspartate Amino Transferase 24 U/L (0-32); Blood Urea Nitrogen 23 mg/dL (8-23); CA 15-3 13.5 U/mL (0-25); Calcium 10.1 mg/dL (8.5-10.5); Carbon Dioxide 28 mmol/L (22-29); Chloride 100 mmol/L (98-107); Creatinine Clr Calc Pharmacy 42.8681; Globulin 3.4 g/dL (1.3-4.6); Glucose 100 mg/dL (65-115); Lactate Dehydrogenase 217 U/L (135-214); Magnesium 1.5 mg/dL (1.7-2.3); Osmolality Calculated 290 mOsm/kg (285-295); Potassium 4.1 mmol/L (3.5-5.1); Sodium 138 mmol/L (136-145); Total Bilirubin 0.6 mg/dL (0.15-1.2); Total Protein 7.6 g/dL (6.6-8.7)
[2024-04-23] MEDS: diphenhydrAMINE 25 mg Capsule PO (10:07)
[2024-04-23] MEDS: acetaminophen 325 mg Tablet 650 MG PO (10:07)
[2024-04-23 10:08] VITALS: BP 128/87; PULSE 99; RESP 16; TEMP 36.1
[2024-04-23] MEDS: pertuzumab-trastuzumab-hy-zzxf (60 mg-60mg-2000 units/mL) 10mL 600 MG SUBCUT (10:36)
== END 2024-05-12 23:59 | disposition home or self-care (01) ==
PROVIDERS: Internal Medicine Hematology & Oncology; Nurse Practitioner Family; PCP Internal Medicine; Visit Provider Internal Medicine Medical Oncology
DX: Z51.12 Encounter for antineoplastic immunotherapy (principal); C50.911 Malignant neoplasm of unspecified site of right female breast; Z53.9 Procedure and treatment not carried out, unspecified reason; Z79.899 Other long term (current) drug therapy
CPT/HCPCS: 36415; 80053; 83615; 83735; 85025; 86300; 96401; 99214; J9316

== ENCOUNTER → 2024-05-08 11:08 | Outpatient (BNVA) | payer MEDICARE, OTHER, SELFPAY | PROVIDERS: PCP Internal Medicine; Referring Provider Internal Medicine Medical Oncology; Visit Provider Student in an Organized Health Care Education/Training Program | DX: C50.911 Malignant neoplasm of unspecified site of right female breast (principal) | CPT/HCPCS: 99214 ==

== ENCOUNTER 2024-05-21 13:00 | Oncology outpatient (recurring) (ONCR) | payer MEDICARE, OTHER, SELFPAY ==
[2024-05-14 13:07] LABS: Miscellaneous Test See Scanned Lab Rpt
[2024-05-14 13:10] LABS: Basophils % 0.5 %; Eosinophils # 0.1 10^3/uL (0.0-0.8); Eosinophils % 0.9 %; Hematocrit 36.7 % (36-47); Lymphocytes # 1.1 10^3/uL (0.8-4.8); Mean Corpuscular HGB Conc 29.7 g/dL (30-55); Mean Corpuscular Hemoglobin 23.5 pg (27-33); Mean Corpuscular Volume 79.1 fl (85-98); Mean Platelet Volume 10.4 fL (7.4-10.4); Monocytes # 0.5 10^3/uL (0.2-0.9); Monocytes % 7.7 %; Neutrophils # 4.24 10^3/uL (1.8-7.7); Neutrophils % 72.6 %; Nucleated Red Blood Cells % 0 %; Platelet Count 270 10^3/cmm (157-399); Red Blood Count 4.64 10^6/uL (3.85-5.65); Red Cell Distribution Width 15.2 % (12.1-15.1); White Blood Count 5.84 10^3/uL (3.29-11.43)
[2024-05-14 13:32] LABS: Alanine Aminotransferase 17 U/L (0-33); Albumin Level 4.3 g/dL (3.5-5.2); Alkaline Phosphatase 71 U/L (35-105); Aspartate Amino Transferase 24 U/L (0-32); Blood Urea Nitrogen 21 mg/dL (8-23); Calcium 10.2 mg/dL (8.5-10.5); Carbon Dioxide 30 mmol/L (22-29); Chloride 102 mmol/L (98-107); Creatinine Clr Calc Pharmacy 38.1049; Globulin 3.5 g/dL (1.3-4.6); Glucose 131 mg/dL (65-115); Osmolality Calculated 293 mOsm/kg (285-295); Sodium 139 mmol/L (136-145); Total Bilirubin 0.6 mg/dL (0.15-1.2); Total Protein 7.8 g/dL (6.6-8.7)
[2024-05-14 14:55] VITALS: O2SAT 98
[2024-05-14] MEDS: pertuzumab-trastuzumab-hy-zzxf (60 mg-60mg-2000 units/mL) 10mL 600 MG SUBCUT (15:05)
[2024-05-14 15:40] LABS: CA 15-3 14.2 U/mL (0-25); Ferritin 35 ng/mL (15-150); Iron 31 ug/dL (37-145); Percent Saturation 6.9 % (20-50); Total Iron Binding Capacity 444 mcg/dl; Unsaturated Iron Binding 413 ug/dL (112-347)
[2024-05-21] MEDS: ferric carboxy (PYXIS) 750 MG in sodium chloride 0.9% (100 ml) 100 ML 345 MG IV (14:13)
[2024-05-21] MEDS: sodium chloride 0.9% 250 ML 75 ML IV (14:14)
[2024-05-21 15:00] VITALS: BP 115/76; PULSE 78; RESP 17; TEMP 36.7; O2SAT 93
== END 2024-05-21 23:59 | disposition home or self-care (01) ==
PROVIDERS: PCP Internal Medicine; Visit Provider Internal Medicine Medical Oncology
DX: Z53.9 Procedure and treatment not carried out, unspecified reason (principal); Z79.899 Other long term (current) drug therapy; D50.9 Iron deficiency anemia, unspecified
CPT/HCPCS: 80053; 82728; 83540; 83550; 85025; 86300; 96365; 96402; 99214; J1439; J7050; J9316

== ENCOUNTER 2024-06-05 09:30 | Oncology outpatient (recurring) (ONCR) | payer MEDICARE, OTHER, SELFPAY ==
[2024-05-28 12:36] VITALS: BP 108/76; PULSE 94; RESP 18; TEMP 36; O2SAT 96
[2024-05-28] MEDS: ferric carboxy (PYXIS) 750 MG in sodium chloride 0.9% (100 ml) 100 ML 345 MG IV (13:08)
[2024-05-28 13:38] VITALS: BP 118/83; PULSE 112; RESP 16; TEMP 36.6; O2SAT 96
[2024-06-04 10:58] LABS: Basophils % 0.4 %; Eosinophils % 0.4 %; Hematocrit 40.9 % (36-47); Lymphocytes # 0.7 10^3/uL (0.8-4.8); Lymphocytes % 9.4 %; Mean Corpuscular HGB Conc 30.1 g/dL (30-55); Mean Corpuscular Hemoglobin 24.6 pg (27-33); Mean Corpuscular Volume 81.6 fl (85-98); Monocytes # 0.4 10^3/uL (0.2-0.9); Monocytes % 5.4 %; Neutrophils # 6.19 10^3/uL (1.8-7.7); Nucleated Red Blood Cells % 0 %; Platelet Count 225 10^3/cmm (157-399); Red Blood Count 5.01 10^6/uL (3.85-5.65); White Blood Count 7.37 10^3/uL (3.29-11.43)
[2024-06-04 11:27] LABS: Alanine Aminotransferase 27 U/L (0-33); Albumin Level 4.3 g/dL (3.5-5.2); Alkaline Phosphatase 82 U/L (35-105); Anion Gap 11.8 (5-19); Aspartate Amino Transferase 27 U/L (0-32); Blood Urea Nitrogen 21 mg/dL (8-23); CA 15-3 19.2 U/mL (0-25); Calcium 9.7 mg/dL (8.5-10.5); Carbon Dioxide 29 mmol/L (22-29); Chloride 103 mmol/L (98-107); Creatinine Clr Calc Pharmacy 37.5918; Globulin 3.4 g/dL (1.3-4.6); Glucose 98 mg/dL (65-115); Osmolality Calculated 293 mOsm/kg (285-295); Potassium 3.8 mmol/L (3.5-5.1); Sodium 140 mmol/L (136-145); Total Bilirubin 0.7 mg/dL (0.15-1.2); Total Protein 7.7 g/dL (6.6-8.7)
[2024-06-04] MEDS: pertuzumab-trastuzumab-hy-zzxf (60 mg-60mg-2000 units/mL) 10mL 600 MG SUBCUT (13:10)
[2024-06-04 13:22] VITALS: BP 112/82; PULSE 84; RESP 17; TEMP 36.6; O2SAT 97
--- NOTE | 2024-06-05 09:30 | PETR_ITS ---
PROCEDURE INFORMATION: Exam: PET/CT Skull Base to Mid-thigh Exam date and time: 06/05/2024 10:21 AM Age: 88 years old Clinical indication: Restaging of breast cancer; Prior surgery; Surgery date: 6+ months; Surgery type: RT ovary, appy. History of tonsillar cancer. LABS AND CLINICAL REPORTS: Glucose: 88 mg/dl Treatment strategy for malignancy (PET staging): Restaging (PS) TECHNIQUE: Imaging protocol: Following at least four-hour fasting and following the injection of radiopharmaceutical, low dose CT images were obtained. Then, PET images were obtained. Attenuation corrected images were constructed using the CT scan. Fused images of PET and CT were reviewed. The standardized uptake values (SUV) reported below are maximum values within a region of interest, expressed in gm/ml. Exam includes orbital meatal line to mid-thigh. SUV normalization method: BodyWeight Radiopharmaceutical: 10 mCi F-18 FDG (Fluorodeoxyglucose), IV. Time of imaging post radiopharmaceutical administration: 47 minutes Injection site: left ac COMPARISON: PET skull to thigh SUBS 12/03/2023, CT chest abdomen pelvis 03/31/2024 FINDINGS: Brain: Normal physiologic uptake. Pharynx: No abnormal uptake. Larynx: No abnormal uptake. Lungs, pleura and trachea: No discrete solid nodules or masses. Perihilar ground-glass opacity in the right lower lobe with slightly increased uptake of 2.1 SUV is new since 03/31/2024 likely representing benign inflammatory finding. Stable subsegmental atelectasis in the right middle lobe and bilateral lower lobes. No pleural effusion. Heart: No abnormal uptake. There is no pericardial effusion. Mediastinal space: No abnormal uptake. Liver: No abnormal uptake. Maximum uptake is 2.5 SUV. Stable bilobar simple cysts. Gallbladder and biliary ducts: No abnormal uptake. No calcified gallstones. Pancreas: No abnormal uptake. Spleen: No abnormal uptake. No splenomegaly. Adrenal glands: No abnormal uptake. No nodules. Kidneys and ureters: Normal physiologic uptake. No hydronephrosis. Stable nonobstructive right renal stones. Stomach and bowel: No abnormal uptake. Vasculature: No abnormal uptake. Stable stent in the right carotid artery. No aortic aneurysm. Lymph nodes: Stable in size about 1.6 x 0.8 cm right axillary lymph node increased in uptake from 4 SUV to 11.8 SUV. There is new uptake of 3.6 SUV within additional higher located right axillary lymph node with normal cortical thickness of 0.4 cm. No FDG avid lymphadenopathy in the neck, chest, abdomen, pelvis, left axilla and the groins. Skeleton: New small foci of increased uptake are suggestive of bone metastases. This includes small linear focus in the left lateral aspect of the upper endplate of L1 measuring 8.4 SUV with no corresponding lytic or sclerotic lesion on CT; increased uptake of 5.9 SUV in the left pedicle and the left posterior arch of T12 with subtle sclerotic changes; 0.6 cm sclerotic focus in the left pubic bone measuring 5 SUV. Soft tissues: Linear FDG avid uptake in the left arm is suggestive of lymphatic drainage from extravasation in the injection site in the left antecubital fossa. PET/PET skull to thigh SUBS [id number] IMPRESSION: In comparison with 12/03/2023 there is progressive disease as follows: 1. New 3 small osteoblastic bone metastases in the spine and the left pubic bone with the highest uptake of 8.4 SUV in L1. 2. Metabolic progression in the right axilla. Stable in size metastatic lymph node increase in uptake from 4 SUV to 11.8 SUV. New increased uptake of 3.6 SUV in another normal in size lymph node.
== END 2024-06-05 23:59 | disposition home or self-care (01) ==
LOC: ONCMED 11:33 → RAD 11:35
PROVIDERS: Nurse Practitioner Family; PCP Internal Medicine; Visit Provider Radiology Radiation Oncology
DX: Z53.9 Procedure and treatment not carried out, unspecified reason (principal); C50.811 Malignant neoplasm of overlapping sites of right female breast; C79.51 Secondary malignant neoplasm of bone; C77.3 Secondary and unspecified malignant neoplasm of axilla and upper limb lymph nodes
CPT/HCPCS: 36415; 78815; 80053; 85025; 86300; 96365; 96372; 99214; A9552; J1439; J9316

== ENCOUNTER 2024-06-10 14:26 | Oncology outpatient (recurring) (ONCR) | payer MEDICARE, OTHER, SELFPAY ==
--- NOTE | 2024-06-11 09:26 | N.ONRAD NP_ITS ---
Radiation Oncology New Patient Visit Patient: Carrie Winston MR#: [id number] : 1935 Age: 88 Sex: Female Dictated by: Dr. 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 Chief Complaint / History of Present Illness: Patient is a 88-year-old lady who was treated for a head neck malignancy in 2011. At that time she received initial chemotherapy followed by radiation and chemotherapy combined. She apparently was quite sick during the course of this treatment. She recently had been diagnosed with a locally advanced breast cancer which was grade 3 and had ulceration of the skin. She was placed on anastrozole and phesgo. She had a good response to the disease in the breast but continued to have a positive lymph node on PET scan. She her most recent PET scan done June 05 showed progression of the disease in the axillary node with a change in SUV from 4 up to 11.8. No changes were noted in the breast. She was noted to have 3 new bony metastasis in L1, T12 and the left pubic area. She is here today to review the results of her PET scan and discuss how she would like to proceed. She is currently asymptomatic from all sites of disease. Current Medications: anastrozole TAKE ONE TABLET BY MOUTH DAILY FOR 30 DAYS atorvastatin 20 mg PO DAILY cholecalciferol (vitamin D3) (Vitamin D3) 10,000 units PO DAILY clopidogrel 75 mg PO QAM dabigatran etexilate (Pradaxa) 75 mg PO BID diltiazem HCl 30 mg PO QID latanoprost 0.005% (Xalatan) 1 drp ophthalmic (eye) BEDTIME levothyroxine 100 mcg PO DAILY lorazepam 0.5 - 1 mg (0.5 - 1 x 1 mg) PO Q6H PRN [Lnrwtvwlh-Ijavlju-Vjom High Absorption 2,000 mg PO DAILY] megestrol 400 mg (10 mL) PO DAILY metoprolol tartrate 100 mg PO Q12H pantoprazole 40 mg PO QAM prochlorperazine maleate (Compazine) 10 mg PO Q4H PRN Allergies: No Known Allergies Allergy Medical History: No history of collagen vascular disease. No previous radiation therapy. Primary tonsillar squamous cell carcinoma Recurrent breast cancer DNI (do not intubate) DNR (do not resuscitate) Bloody discharge from right nipple Breast cancer, right Carotid artery disease GERD (gastroesophageal reflux disease) CVA (cerebral vascular accident) 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 Glaucoma Hypercholesteremia History of atrial fibrillation Surgical History: Status post right breast lumpectomy (09/18/21) re excision margin -10/05/21 Status post carotid surgery right carotid stent S/P appendectomy History of colonoscopy Family History: Father Myocardial infarct Hypercholesteremia CAD (coronary artery disease) Chronic kidney disease (CKD) Mother Hypercholesteremia Alzheimer disease Dementia CAD (coronary artery disease) Social History: Smoking and tobacco/nicotine status: never used tobacco/nicotine Current Complaints / Review of Systems: . Vital Signs: Performed on 06/10/2024 2:39 PM BMI - 17.506 kg/m2 (low), Height - 65 in, Weight - 105.2 lbs, Temperature - 98 f, Pulse - 86 /min, Respiration - 18 /min, O2 Sat - 93 % (low), Pain - 0, Fatigue - 0 and BP - 119/ 80 mm(hg). Physical Exam: General Patient is in no apparent distress. She is accompanied by her daughter HEENT: Normocephalic atraumatic. Pupils are equal, sclera clear, extraocular muscles intact Pulmonary: Respiratory rate is regular nonlabored Cardiovascular: Regular rate and rhythm Abdomen: Patient is quite thin/cachectic Extremities: No lymphedema noted in the upper extremities Neurological: Alert and orient x 3. Gait and speech within normal limits Psych: Affect appropriate for current situation Performance Status: 100 Pathology: Lab: Imaging: See HPI Impression: Stage IV breast cancer Plan: I reviewed the results of the PET scan with her we actually also looked at the images. She understands that the lymph node looks like it has become more active. I explained to her the change in SUV and what that meant. We talked about the 3 new small spots in the various vertebrae and pubic area. After some discussion and answering all of her questions at this point she would like to have treatment done on the axillary region as she is feels that this might be the part of her disease that is changing. We talked about how patients with breast cancer and bone mets is very different than someone who has organ disease. I reviewed with her the simulation process. We talked about a 2-week course of treatment. We reviewed the risks and side effects of the treatment. We also talked about some different things she can do for her chronic fatigue. She does not eat very well and has minimal protein intake. I wrote down a list of supplements to help with her mitochondrial health. We talked about increasing her protein intake. Will have her scheduled for simulation next week and begin her treatment shortly thereafter Signed by: 06/11/2024 9:25:18 AM <<Signature on File>> Time spent on patient: 60 CPT Code: CPT Code:
== END 2024-06-12 23:59 | disposition home or self-care (01) ==
PROVIDERS: PCP Internal Medicine; Visit Provider Radiology Radiation Oncology
DX: C79.51 Secondary malignant neoplasm of bone; C50.811 Malignant neoplasm of overlapping sites of right female breast
CPT/HCPCS: 99205

== ENCOUNTER 2024-06-26 08:09 | Oncology outpatient (recurring) (ONCR) | payer MEDICARE, OTHER, SELFPAY ==
--- NOTE | 2024-06-23 09:13 | ONCRAD TMN_ITS ---
Radiation Oncology Weekly Treatment Management Patient: Carrie Winston MR#: [id number] : 1935> Attending Physician: Dr. Stephanie Murrieta Date of Service: 06/23/2024 Fractions: 2 out of 10 Referring Physician(s) : Diagnosis: C50.911 - Malignant neoplasm of unspecified site of right female breast, Diagnosed 06/11/2024 (Active) C77.3 - Secondary and unspecified malignant neoplasm of axilla and upper limb lymph nodes, Diagnosed 06/11/2024 (Active) Radiotherapy to date: Course: R axilla, Treatment Site: [id number], Ref. ID: [id number], Energy: 15X/6X, Dose/Fx (cGy): 300, #Fx: , Dose Correction (cGy): 0, Total Dose Delivered (cGy): 600, Start Date: 06/22/2024, Elapsed Days: 1 Reason for visit: The patient is being seen today as part of their regularly scheduled weekly on treatment visits to assess for acute toxicities from radiotherapy. Review of Systems: Patient has noticed no changes as yet Vital Signs: Performed on 06/23/2024 8:42 AM BMI - 17.473 kg/m2 (low), Height - 65 in, Weight - 105 lbs, Temperature - 97.6 f, Pulse - 92 /min, Respiration - 16 /min, O2 Sat - 100 %, Pain - 0, Fatigue - 0 and BP - 112/ 78 mm(hg). Physical Exam: No changes on exam Imaging: Radiation therapy imaging related to accurate target localization (i.e. KV, MV and CBCT) was reviewed. Appropriate changes, if any, were made to ensure treatment accuracy. Plan: Will continue with treatments as planned Signed by: Dr. Stephanie Murrieta 06/23/2024 9:11:47 AM
[2024-06-25 09:08] LABS: Basophils % 0.5 %; Lymphocytes # 0.5 10^3/uL (0.8-4.8); Lymphocytes % 11.5 %; Mean Corpuscular HGB Conc 30.7 g/dL (30-55); Mean Corpuscular Hemoglobin 26.5 pg (27-33); Mean Corpuscular Volume 86.3 fl (85-98); Mean Platelet Volume 10.1 fL (7.4-10.4); Monocytes # 0.2 10^3/uL (0.2-0.9); Neutrophils # 3.22 10^3/uL (1.8-7.7); Neutrophils % 80.7 %; Nucleated Red Blood Cells % 0 %; Platelet Count 176 10^3/cmm (157-399); Red Blood Count 5.33 10^6/uL (3.85-5.65); White Blood Count 3.99 10^3/uL (3.29-11.43)
[2024-06-25 09:44] LABS: Add RBC Morph Yes; Alanine Aminotransferase 43 U/L (0-33); Albumin Level 4.3 g/dL (3.5-5.2); Alkaline Phosphatase 72 U/L (35-105); Anion Gap 9.8 (5-19); Aspartate Amino Transferase 31 U/L (0-32); Blood Urea Nitrogen 18 mg/dL (8-23); CA 15-3 18.6 U/mL (0-25); Calcium 9.5 mg/dL (8.5-10.5); Carbon Dioxide 31 mmol/L (22-29); Chloride 103 mmol/L (98-107); Creatinine Clr Calc Pharmacy 42.5066; Dimorphic RBC 2+; Ferritin 705 ng/mL (15-150); Globulin 2.7 g/dL (1.3-4.6); Glucose 86 mg/dL (65-115); Iron 141 ug/dL (37-145); Osmolality Calculated 291 mOsm/kg (285-295); Percent Saturation 50.5 % (20-50); Potassium 3.8 mmol/L (3.5-5.1); RBC Morph Comp No; Slide Review Slide Review Perform; Sodium 140 mmol/L (136-145); Total Bilirubin 0.8 mg/dL (0.15-1.2); Total Iron Binding Capacity 279 mcg/dl; Unsaturated Iron Binding 138 ug/dL (112-347)
[2024-06-25 09:45] LABS: Anisocytosis 2+; Hypochromasia 1+; Pathology Refferal No; Poikilocytosis 1+
[2024-06-25] MEDS: pertuzumab-trastuzumab-hy-zzxf (60 mg-60mg-2000 units/mL) 10mL 600 MG SUBCUT (14:54)
[2024-06-25 14:56] VITALS: BP 112/68; PULSE 75; RESP 18; TEMP 36.6; O2SAT 98
== END 2024-06-26 09:00 | disposition home or self-care (01) ==
PROVIDERS: Nurse Practitioner Family; PCP Internal Medicine; Visit Provider Radiology Radiation Oncology
DX: Z51.0 Encounter for antineoplastic radiation therapy (principal); C50.811 Malignant neoplasm of overlapping sites of right female breast; C77.3 Secondary and unspecified malignant neoplasm of axilla and upper limb lymph nodes
CPT/HCPCS: 36415; 77290; 77295; 77300; 77334; 77387; 77412; 80053; 82728; 83540; 83550; 85025; 86300; 96402; 99024; 99214; J9316

== ENCOUNTER 2024-07-08 08:31 | Oncology outpatient (recurring) (ONCR) | payer MEDICARE, OTHER, SELFPAY ==
--- NOTE | 2024-06-30 09:19 | ONCRAD TMN_ITS ---
Radiation Oncology Weekly Treatment Management Patient: Tish Flores MR#: [id number] : 1935> Attending Physician: Dr. Stephanie Murrieta Date of Service: 06/30/2024 Fractions: 6 out of 10 Referring Physician(s) : Diagnosis: C50.911 - Malignant neoplasm of unspecified site of right female breast, Diagnosed 06/11/2024 (Active) C77.3 - Secondary and unspecified malignant neoplasm of axilla and upper limb lymph nodes, Diagnosed 06/11/2024 (Active) Radiotherapy to date: Course: R axilla, Treatment Site: [id number], Ref. ID: [id number], Energy: 15X/6X, Dose/Fx (cGy): 300, #Fx: 6 / 10, Dose Correction (cGy): 0, Total Dose Delivered (cGy): 1,800, Start Date: 06/22/2024, Elapsed Days: 8 Reason for visit: The patient is being seen today as part of their regularly scheduled weekly on treatment visits to assess for acute toxicities from radiotherapy. Review of Systems: Patient denies any complaints or changes Vital Signs: Performed on 06/30/2024 8:36 AM BMI - 17.273 kg/m2 (low), Height - 65 in, Weight - 103.8 lbs, Temperature - 97.4 f, Pulse - 69 /min, Respiration - 18 /min, O2 Sat - 95 % (low), Pain - 0, Fatigue - 0 and BP - 135/ 79 mm(hg). Physical Exam: No changes on exam Imaging: Radiation therapy imaging related to accurate target localization (i.e. KV, MV and CBCT) was reviewed. Appropriate changes, if any, were made to ensure treatment accuracy. Plan: Will continue with her treatments as planned Signed by: Dr. Stephanie Murrieta 06/30/2024 9:18:01 AM
--- NOTE | 2024-07-10 10:29 | N.ONRD TS_ITS ---
Radiation Oncology Treatment Summary Patient: Carrie Winston MR#: [id number] : 1935 Age: 88 Sex: Female Dictated by: Shaw Samano Date of Service: 07/08/2024 Referring Physician(s) : Diagnosis: C50.911 - Malignant neoplasm of unspecified site of right female breast, Diagnosed 06/11/2024 (Active) C77.3 - Secondary and unspecified malignant neoplasm of axilla and upper limb lymph nodes, Diagnosed 06/11/2024 (Active) Radiotherapy to Date: Course: R axilla, Treatment Site: [id number], Ref. ID: [id number], Energy: 15X/6X, Dose/Fx (cGy): 300, #Fx: , Dose Correction (cGy): 0, Total Dose Delivered (cGy): 3,000, Start Date: 06/22/2024, End Date: 07/08/2024, Elapsed Days: 16 Clinical Summary: The patient tolerated RT well. Skin intact Plan: End of treatment today. Continue on the above medication until the skin reaction resolves. Follow up in one month. Signed by: Shaw Samano>07/10/2024 10:26:55 AM <<Signature on File>>
== END 2024-07-10 23:59 | disposition home or self-care (01) ==
PROVIDERS: PCP Internal Medicine; Visit Provider Radiology Radiation Oncology
DX: C50.811 Malignant neoplasm of overlapping sites of right female breast (principal); C79.51 Secondary malignant neoplasm of bone; Z53.9 Procedure and treatment not carried out, unspecified reason; Z51.12 Encounter for antineoplastic immunotherapy; Z79.899 Other long term (current) drug therapy; C50.911 Malignant neoplasm of unspecified site of right female breast; C09.9 Malignant neoplasm of tonsil, unspecified; Z17.0 Estrogen receptor positive status [ER+]; D50.9 Iron deficiency anemia, unspecified; Z79.811 Long term (current) use of aromatase inhibitors; Z51.0 Encounter for antineoplastic radiation therapy; C77.3 Secondary and unspecified malignant neoplasm of axilla and upper limb lymph nodes
CPT/HCPCS: 77336; 77387; 77412; 99024

== ENCOUNTER 2024-08-06 12:00 | Oncology outpatient (recurring) (ONCR) | payer MEDICARE, OTHER, SELFPAY ==
[2024-07-16 13:29] LABS: Basophils % 0.4 %; Eosinophils # 0.1 10^3/uL (0.0-0.8); Lymphocytes # 0.7 10^3/uL (0.8-4.8); Lymphocytes % 14.1 %; Mean Corpuscular HGB Conc 30.9 g/dL (30-55); Mean Corpuscular Hemoglobin 27.3 pg (27-33); Mean Corpuscular Volume 88.5 fl (85-98); Mean Platelet Volume 9.7 fL (7.4-10.4); Monocytes # 0.4 10^3/uL (0.2-0.9); Monocytes % 7.6 %; Neutrophils # 3.86 10^3/uL (1.8-7.7); Neutrophils % 76.7 %; Nucleated Red Blood Cells % 0 %; Platelet Count 162 10^3/cmm (157-399); Red Cell Distribution Width 23.1 % (12.1-15.1); White Blood Count 5.03 10^3/uL (3.29-11.43)
[2024-07-16 14:07] LABS: Alanine Aminotransferase 42 U/L (0-33); Albumin Level 4.3 g/dL (3.5-5.2); Alkaline Phosphatase 84 U/L (35-105); Anion Gap 12.4 (5-19); Aspartate Amino Transferase 34 U/L (0-32); Blood Urea Nitrogen 23 mg/dL (8-23); CA 15-3 17.1 U/mL (0-25); Calcium 9.7 mg/dL (8.5-10.5); Carbon Dioxide 30 mmol/L (22-29); Chloride 101 mmol/L (98-107); Creatinine Clr Calc Pharmacy 36.9814; Glucose 101 mg/dL (65-115); Osmolality Calculated 292 mOsm/kg (285-295); Potassium 4.4 mmol/L (3.5-5.1); Sodium 139 mmol/L (136-145); Total Bilirubin 0.5 mg/dL (0.15-1.2); Total Protein 7.3 g/dL (6.6-8.7)
[2024-07-16] MEDS: pertuzumab-trastuzumab-hy-zzxf (60 mg-60mg-2000 units/mL) 10mL 600 MG SUBCUT (15:54)
[2024-07-16 15:55] VITALS: BP 112/68; PULSE 72; RESP 18; TEMP 36.6; O2SAT 96
[2024-08-06 12:48] LABS: Basophils % 0.5 %; Eosinophils % 0.5 %; Hematocrit 49.4 % (36-47); Lymphocytes # 0.6 10^3/uL (0.8-4.8); Lymphocytes % 8.8 %; Mean Corpuscular HGB Conc 31.4 g/dL (30-55); Mean Corpuscular Hemoglobin 28.3 pg (27-33); Mean Corpuscular Volume 90.3 fl (85-98); Mean Platelet Volume 9.7 fL (7.4-10.4); Monocytes # 0.5 10^3/uL (0.2-0.9); Neutrophils # 5.43 10^3/uL (1.8-7.7); Neutrophils % 82.7 %; Nucleated Red Blood Cells % 0 %; Platelet Count 169 10^3/cmm (157-399); Red Blood Count 5.47 10^6/uL (3.85-5.65); Red Cell Distribution Width 19.8 % (12.1-15.1); White Blood Count 6.56 10^3/uL (3.29-11.43)
[2024-08-06 13:14] LABS: Alanine Aminotransferase 39 U/L (0-33); Albumin Level 4.3 g/dL (3.5-5.2); Alkaline Phosphatase 84 U/L (35-105); Anion Gap 13.6 (5-19); Aspartate Amino Transferase 29 U/L (0-32); Blood Urea Nitrogen 20 mg/dL (8-23); CA 15-3 17.2 U/mL (0-25); Carbon Dioxide 30 mmol/L (22-29); Chloride 98 mmol/L (98-107); Creatinine Clr Calc Pharmacy 32.7859; Globulin 3.4 g/dL (1.3-4.6); Glucose 92 mg/dL (65-115); Osmolality Calculated 288 mOsm/kg (285-295); Potassium 3.6 mmol/L (3.5-5.1); Sodium 138 mmol/L (136-145); Total Bilirubin 0.7 mg/dL (0.15-1.2); Total Protein 7.7 g/dL (6.6-8.7)
--- NOTE | 2024-08-06 13:35 | ONCRAD EPV_ITS ---
Radiation Oncology Established Patient Visit Patient: Carrie Winston [id number] : 1935> Age: 88> Sex: Female> Dictated by: Dr. Stephanie Murrieta Date of Service: 08/06/2024 Referring Physician(s) : Diagnosis: C50.911 - Malignant neoplasm of unspecified site of right female breast, Diagnosed 06/11/2024 (Active) C77.3 - Secondary and unspecified malignant neoplasm of axilla and upper limb lymph nodes, Diagnosed 06/11/2024 (Active) Radiotherapy to Date: Course: R axilla, Treatment Site: [id number], Ref. ID: [id number], Energy: 15X/6X, Dose/Fx (cGy): 300, #Fx: , Dose Correction (cGy): 0, Total Dose Delivered (cGy): 3,000, Start Date: 06/22/2024, End Date: 07/08/2024, Elapsed Days: 16 Current History: Patient returns for her first month follow-up. She is in good spirits. Her skin is had no issues. The knot under her arm is completely gone. She is due to meet with medical oncology later today. Current Medications: Allergies: Current Complaints / Review of Systems: . Vital Signs: Performed on 08/06/2024 12:20 PM BMI - 17.09 kg/m2 (low), Height - 65 in, Weight - 102.7 lbs, Temperature - 96.7 f, Pulse - 94 /min, Respiration - 17 /min, O2 Sat - 97 %, Pain - 0, Fatigue - 0 and BP - 145/ 82 mm(hg)(high/). Physical Exam: General: Alert and oriented x 3. No acute distress. HEENT normocephalic atraumatic. Pupils equal, sclera clear, extraocular muscles intact. LUNGS: Respiratory is regular nonlabored HEART: Regular rate and rhythm ABDOMEN patient is quite thin with minimal adipose tissue EXTREMITIES: No peripheral edema is identified. Limited motor and sensory examination are grossly intact and symmetric bilaterally. Performance Status: 100 Lab: None pending. Pathology: Primary, c50.911 - malignant neoplasm of unspecified site of right female breast, Diagnosed 06/11/2024 (active) and Primary, c77.3 - secondary and unspecified malignant neoplasm of axilla and upper limb lymph nodes, Diagnosed 06/11/2024 (active) . Imaging: See HPI Impression: Stage IV breast cancer now with complete resolution of the axillary node Plan: At this point she will be meeting with medical oncology. Will be happy to see her back at any time. Signed by: 08/06/2024 1:33:53 PM <<Signature on File>> Time spent with patient: 20 CPT Code: * CPT Code: *
[2024-08-06] MEDS: pertuzumab-trastuzumab-hy-zzxf (60 mg-60mg-2000 units/mL) 10mL 600 MG SUBCUT (15:04)
== END 2024-08-06 23:59 | disposition home or self-care (01) ==
PROVIDERS: Nurse Practitioner Family; PCP Internal Medicine; Visit Provider Internal Medicine
DX: Z53.9 Procedure and treatment not carried out, unspecified reason (principal); Z51.12 Encounter for antineoplastic immunotherapy; C50.911 Malignant neoplasm of unspecified site of right female breast; Z17.0 Estrogen receptor positive status [ER+]; Z79.811 Long term (current) use of aromatase inhibitors; Z79.899 Other long term (current) drug therapy; Z92.3 Personal history of irradiation
CPT/HCPCS: 36415; 80053; 85025; 86300; 96401; 96402; 99024; 99214; J9316

== ENCOUNTER 2024-08-25 12:07 | Emergency (ER) | payer MEDICARE, OTHER, SELFPAY ==
[2024-08-25 12:15] VITALS: BP 150/120; PULSE 92; RESP 16; TEMP 36.2; O2SAT 95; BMI 23.3
[2024-08-25 12:16] VITALS: BP 150/120; PULSE 95; O2SAT 94
--- NOTE | 2024-08-25 12:22 | CT_ITS ---
WS: [id number] CT FACIAL BONES HISTORY: fall TECHNIQUE: Images obtained from the supraorbital location through the mandible. Soft tissue and bone windows are reviewed. Coronal and sagittal reformats have also been submitted. DLP: 1803.[address] scans at [facility] use at least one of these dose optimization techniques: automated exposure control; mA and/or kV adjustment per patient size (includes targeted exams where dose is matched to clinical indication); or iterative reconstruction. COMPARISON: None available. No facial bone fracture. Nasal bones and zygomatic arches are intact. No air- fluid levels within the sinuses. Upper cervical spine is negative. Orbits and globes are intact. Large acute LEFT frontal scalp hematoma. RIGHT carotid stent. CT/CT facial bones wo con* [id number] IMPRESSION: 1. No facial bone fracture. 2. Large LEFT frontal scalp hematoma.
--- NOTE | 2024-08-25 12:22 | CT_ITS ---
WS: [id number] CT CERVICAL SPINE HISTORY: fall TECHNIQUE: Contiguous 2.0 mm axial imaging performed through the entire cervical spine. Sagittal and coronal reformats also performed. All CT scans at [facility] use at least one of these dose optimization techniques: automated exposure control; mA and/or kV adjustment per patient size (includes targeted exams where dose is matched to clinical indication); or iterative reconstruction. DLP: 1803.11 mGy.cm COMPARISON: None available. Curvature and scoliosis cervical spine. C4 anterolisthesis by 4 mm. Normal facet joint alignment. Advanced degenerative disc disease at C5-6 and C6-7. Lateral masses of C1 and C2 are aligned. The odontoid is intact. Craniocervical junction is normal. C2-C3: Normal. C3-C4: No fracture. C4-C5: Facet joint arthropathy. Minimal foraminal stenosis. C5-C6: Osteophytic ridging. Mild foraminal stenosis. C6-C7: Osteophytic ridging. Mild RIGHT foraminal stenosis. C7-T1: No stenosis. RIGHT carotid arterial stent. Biapical pleural thickening and scarring. No cervical chain adenopathy. CT/CT cervical spin wo con* [id number] IMPRESSION: 1. No acute cervical spine fracture. 2. Degenerative facet joint disease and spondylosis. 3. C4 anterolisthesis by 4 mm, similar to the study from 10/25/2020.
--- NOTE | 2024-08-25 12:22 | CT_ITS ---
WS: [id number] CT HEAD NONCONTRAST HISTORY: fall TECHNIQUE: Contiguous axial imaging performed through the brain. Bone and soft tissue windows. Sagittal and coronal reformats reviewed. All CT scans at [facility] use at least one of these dose optimization techniques: automated exposure control; mA and/or kV adjustment per patient size (includes targeted exams where dose is matched to clinical indication); or iterative reconstruction. DLP: 1803.11 mGy.cm COMPARISON: 01/27/2021 No acute intracranial hemorrhage, midline shift or mass effect. Mild atrophy and small vessel disease. Mild cerebellar atrophy. No acute intracranial hemorrhage or edema. Ventricles: Normal size ventricles. Paranasal sinuses: As visualized are clear. Mastoid air cells: Well pneumatized. Calvarium and scalp: No fracture. Large acute LEFT frontal scalp hematoma. CT/CT head wo con* [id number] IMPRESSION: 1. No acute intracranial hemorrhage or edema. 2. Mild cerebral and cerebellar atrophy. 3. Large acute RIGHT frontal scalp hematoma.
--- NOTE | 2024-08-25 12:23 | W.ED.FALL ---
HPI - Fall General: Chief Complaint: Fall Stated Complaint: fall, L leg lac and bump on head, on blood thinner Time Seen by Provider: 08/25/24 12:15 Source: patient Mode of arrival: ambulatory Limitations: no limitations History of Present Illness: 88-year-old female states that she had fell in the garden this morning. She states she did hit her head does have a small laceration to her forehead along with a hematoma she also complains of some pain over her left cheek. She is on Pradaxa she denies any severe headache denies any loss conscious. She also has an abrasion to her left lower leg denies any pain in her leg is able to ambulate without any difficulty Associated symptoms-after fall: Reports headache(s); Denies abdominal pain, chest pain or neck pain Related Data Home Medications ?Medication ?Instructions ?Recorded ?Confirmed latanoprost 0.005 % eye drops 1 drp ophthalmic (eye) BEDTIME 09/05/20 08/25/24 (Xalatan) metoprolol tartrate 100 mg tablet 100 mg PO BID 09/05/20 08/25/24 pantoprazole 40 mg tablet,delayed 40 mg PO QAM 09/05/20 08/25/24 release clopidogrel 75 mg tablet 75 mg PO QAM 11/09/20 08/25/24 atorvastatin 20 mg tablet 20 mg PO DAILY 12/05/21 08/25/24 diltiazem HCl 30 mg tablet 30 mg PO QID 06/28/23 08/25/24 cholecalciferol (vitamin D3) 125 10,000 unit PO BID 11/28/23 08/25/24 mcg (5,000 unit) tablet (Vitamin D3) anastrozole 1 mg tablet 1 mg PO DAILY 08/25/24 08/25/24 levothyroxine 100 mcg capsule 100 mcg PO QAM 08/25/24 08/25/24 Previous Rx's ?Medication ?Instructions ?Recorded dabigatran etexilate 75 mg capsule 75 mg PO BID #180 caps 06/10/23 (Pradaxa) prochlorperazine maleate 10 mg 10 mg PO Q4H PRN Mild Nausea #30 09/18/23 tablet (Compazine) tabs Allergies Allergy/AdvReac Type Severity Reaction Status Date / Time No Known Allergies Allergy Verified 08/06/24 12:22 Review of Systems Const: Denies: fever(s), chills, body aches or change in appetite Eyes: Denies: blurry vision or eye discomfort ENMT: Denies: throat pain or dental pain Card: Denies: chest pain Resp: Denies: dyspnea GI: Denies: abdominal pain, nausea, vomiting or diarrhea Musc: Denies: neck pain or back pain Skin/Breast: Denies: rash Neuro: Reports: headache(s) PFSH ED PFSH: Medical History Primary tonsillar squamous cell carcinoma Recurrent breast cancer DNI (do not intubate) DNR (do not resuscitate) Bloody discharge from right nipple Breast cancer, right Carotid artery disease GERD (gastroesophageal reflux disease) CVA (cerebral vascular accident) 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 Glaucoma Hypercholesteremia History of atrial fibrillation Surgical History Status post right breast lumpectomy (09/18/21) re excision margin -10/05/21 Status post carotid surgery right carotid stent S/P appendectomy History of colonoscopy Family History Father Myocardial infarct Hypercholesteremia CAD (coronary artery disease) Chronic kidney disease (CKD) Mother Hypercholesteremia Alzheimer disease Dementia CAD (coronary artery disease) Sister CAD (coronary artery disease) Cancer Daughter Diabetes Social History Smoking and tobacco/nicotine status: never used tobacco/nicotine Physical Exam Const: COMMON NORMALS: no acute distress, patient oriented x3 and healthy appearing HENMT: COMMON NORMALS: normocephalic HEAD & SCALP: normocephalic OTHER: hematoma to left forehead 2cm superficial laceration Eye: COMMON NORMALS: Equal, round and reactive pupils present and EOMs intact bilaterally PUPIL: Yes Equal, round and reactive pupils present Neck/C-Spine: COMMON NORMALS: full ROM and supple Chest: COMMONS NORMALS: normal inspection of the chest and normal palpation of entire chest wall Resp: COMMON NORMALS: normal respiratory effort, No retractions, No use of accessory muscles and clear to auscultation bilaterally AUSCULTATION: clear to auscultation bilaterally Cardio: COMMON NORMALS: regular rate, regular rhythm and No murmurs present (Cardio) RATE: regular rate RHYTHM: regular rhythm GI: COMMON NORMALS: Normal to inspection, nondistended, normoactive bowel sounds present, Soft to palpation, non-tender and no masses PALPATION: Yes Soft to palpation Extremity: COMMON NORMALS: full ROM NARRATIVE EXTREMITY EXAM: abrasion to left anterior tiba no deformity or tenderness Neuro: COMMON NORMALS: patient oriented x3, moves all extremities and no focal motor deficits Psych: COMMON NORMALS: mental status grossly normal, Normal thought process present and cooperative THOUGHT PROCESS: Normal thought process present Skin: COMMON NORMALS: no rashes or lesions noted GENERAL SKIN EXAM: no rashes or lesions noted Procedures Laceration Laceration 1: Site: face Side (If applicable): right Size (cm): 2 Description: linear Depth: simple, single layer Pre-repair: wound explored and irrigated extensively Skin layer closed with: other (dermabond) Course Vital Signs: Vital signs: Vital Signs Temperature 97.2 F L 08/25/24 12:15 Pulse Rate 92 08/25/24 12:15 Respiratory Rate 16 08/25/24 12:15 Blood Pressure 150/120 08/25/24 12:15 Pulse Oximetry 95 08/25/24 12:15 Oxygen Delivery Me thod Room Air 08/25/24 12:15 MDM - Fall Medical Decision Making Patient presents here with a small head laceration after fall imaging here is all normal did repair the superficial LAC with tissue adhesive she is stable for discharge follow-up PCP return for worsening. Medical Records I reviewed the patient's medical records. Lab Data Radiology Impressions Cervical Spine CT 08/25/24 12:22 IMPRESSION: 1. No acute cervical spine fracture. 2. Degenerative facet joint disease and spondylosis. 3. C4 anterolisthesis by 4 mm, similar to the study from 10/25/2020. Face CT 08/25/24 12:22 IMPRESSION: 1. No facial bone fracture. 2. Large LEFT frontal scalp hematoma. Head CT 08/25/24 12:22 IMPRESSION: 1. No acute intracranial hemorrhage or edema. 2. Mild cerebral and cerebellar atrophy. 3. Large acute RIGHT frontal scalp hematoma. All radiology interpretation(s) finalized by discharge Discharge Plan Discharge Patient Disposition: Home Clinical Impression: Head injury, Fall, Laceration of head Condition: Stable Prescriptions: No Action latanoprost [Xalatan] 0.005 % drops 1 drp ophthalmic (eye) BEDTIME pantoprazole 40 mg tablet,delayed release (DR/EC) 40 mg PO QAM metoprolol tartrate 100 mg tablet 100 mg PO BID atorvastatin 20 mg tablet 20 mg PO DAILY diltiazem HCl 30 mg tablet 30 mg PO QID Pradaxa 75 mg capsule 75 mg PO BID Qty: 180 3RF clopidogrel 75 mg tablet 75 mg PO QAM cholecalciferol (vitamin D3) [Vitamin D3] 125 mcg (5,000 unit) tablet 10,000 unit PO BID prochlorperazine maleate [Compazine] 10 mg tablet 10 mg PO Q4H PRN (Reason: Mild Nausea) Qty: 30 3RF anastrozole 1 mg tablet 1 mg PO DAILY levothyroxine 100 mcg capsule 100 mcg PO QAM Discharge Orders: Discharge ED (Routine); Ordered 08/25/24 Ordered By: Nuris Mckenzie Referrals: Bonnie Gonzalez MD [Primary Care Provider] - Discharge Diet: Advance as tolerated Discharge Activity: Resume usual activity Patient Instructions: Head Injury (ED), Skin Adhesive Care (ED) Print Language: Gabonese Coding Level of Care Code ED Design Eng for Darion Juárez
[2024-08-25 14:57] VITALS: BP 133/91; PULSE 90; O2SAT 95
[2024-08-25 15:09] VITALS: BP 133/91; PULSE 83; O2SAT 95
== END 2024-08-25 15:09 | disposition home or self-care (01) ==
PROVIDERS: Emergency Provider Emergency Medicine; PCP Internal Medicine
DX: S01.81XA Laceration without foreign body of other part of head, initial encounter (principal); S09.90XA Unspecified injury of head, initial encounter; Z79.02 Long term (current) use of antithrombotics/antiplatelets; Z86.73 Personal history of transient ischemic attack (TIA), and cerebral infarction without residual deficits; W19.XXXA Unspecified fall, initial encounter
CPT/HCPCS: 12011; 70450; 70486; 72125; 99284

== ENCOUNTER 2024-08-27 15:30 | Oncology outpatient (recurring) (ONCR) | payer MEDICARE, OTHER, SELFPAY ==
[2024-08-26 13:53] LABS: Basophils % 0.3 %; Eosinophils % 0.5 %; Hematocrit 46.6 % (36-47); Lymphocytes # 0.5 10^3/uL (0.8-4.8); Lymphocytes % 8.4 %; Mean Corpuscular HGB Conc 31.5 g/dL (30-55); Mean Corpuscular Hemoglobin 29.2 pg (27-33); Mean Corpuscular Volume 92.6 fl (85-98); Mean Platelet Volume 9.5 fL (7.4-10.4); Monocytes # 0.4 10^3/uL (0.2-0.9); Monocytes % 5.9 %; Neutrophils # 5.04 10^3/uL (1.8-7.7); Neutrophils % 84.6 %; Nucleated Red Blood Cells % 0 %; Platelet Count 172 10^3/cmm (157-399); Red Blood Count 5.03 10^6/uL (3.85-5.65); Red Cell Distribution Width 16.2 % (12.1-15.1); White Blood Count 5.96 10^3/uL (3.29-11.43)
[2024-08-26 14:20] LABS: Alanine Aminotransferase 58 U/L (0-33); Albumin Level 4.4 g/dL (3.5-5.2); Alkaline Phosphatase 82 U/L (35-105); Anion Gap 13.5 (5-19); Aspartate Amino Transferase 37 U/L (0-32); Blood Urea Nitrogen 22 mg/dL (8-23); CA 15-3 17.2 U/mL (0-25); Carbon Dioxide 30 mmol/L (22-29); Chloride 99 mmol/L (98-107); Globulin 3.2 g/dL (1.3-4.6); Glucose 88 mg/dL (65-115); Osmolality Calculated 289 mOsm/kg (285-295); Potassium 4.5 mmol/L (3.5-5.1); Sodium 138 mmol/L (136-145); Total Bilirubin 0.7 mg/dL (0.15-1.2); Total Protein 7.6 g/dL (6.6-8.7)
[2024-08-27] MEDS: pertuzumab-trastuzumab-hy-zzxf (60 mg-60mg-2000 units/mL) 10mL 600 MG SUBCUT (16:01)
[2024-08-27 16:15] VITALS: BP 150/88; PULSE 72; RESP 18; TEMP 36.4; O2SAT 97
== END 2024-09-09 23:59 | disposition home or self-care (01) ==
PROVIDERS: Nurse Practitioner Family; PCP Internal Medicine; Visit Provider Internal Medicine Medical Oncology
DX: Z51.12 Encounter for antineoplastic immunotherapy; C50.911 Malignant neoplasm of unspecified site of right female breast; Z17.0 Estrogen receptor positive status [ER+]; R03.0 Elevated blood-pressure reading, without diagnosis of hypertension; D50.9 Iron deficiency anemia, unspecified; R74.01 Elevation of levels of liver transaminase levels; Z79.811 Long term (current) use of aromatase inhibitors; Z79.899 Other long term (current) drug therapy; Z85.89 Personal history of malignant neoplasm of other organs and systems; Z92.3 Personal history of irradiation; Z92.21 Personal history of antineoplastic chemotherapy; Z53.9 Procedure and treatment not carried out, unspecified reason
CPT/HCPCS: 36415; 80053; 85025; 86300; 96401; 99214; J9316

== ENCOUNTER 2024-09-17 12:16 | Oncology outpatient (recurring) (ONCR) | payer MEDICARE, OTHER, SELFPAY ==
--- NOTE | 2024-09-10 12:00 | USCV_ITS ---
Carrie Winston Age: 88 Gender: F : 1935 Exam Date: 09/10/2024 12:24 Ordering Phys: Fiona Arredondo APRN Technologist: MAGY Exam Location: [facility] [place] Indication: high risk meds BP: 130 / 80 HR: Rhythm: Sinus Technical Quality: MEASUREMENTS (Male / Female) Normal Values 2D ECHO LV Diastolic Diameter PLAX 4.1 cm 4.2 - 5.9 / 3.9 - 5.3 cm IVS Diastolic Thickness 0.9 cm 0.6 - 1.0 / 0.6 - 0.9 cm IVS Systolic Thickness 1.0 cm LVPW Diastolic Thickness 1.1 cm 0.6 - 1.0 / 0.6 - 0.9 cm LVPW Systolic Thickness 1.1 cm LVOT Diameter 2.0 cm LV Ejection Fraction 2D Teich 68.1 % LV Ejection Fraction MOD 4C 51.1 % LV Ejection Fraction MOD 2C 60.5 % LV Ejection Fraction 2C AL 60.4 % LA Diameter 3.0 cm M-MODE LA Ao Ratio MM 1.2 AV Cusp Separation MM 1.4 cm FINDINGS Left Ventricle Mildly increased left ventricular cavity size. Mildly decreased left ventricular systolic function. Left ventricular ejection fraction is estimated at 45-50%. Global left ventricular hypokinesis. Right Ventricle Right Atrium Left Atrium Mitral Valve Aortic Valve Tricuspid Valve Pulmonic Valve Pericardium Aorta IVC CONCLUSIONS Limited echo Mildly increased left ventricular cavity size. Mildly decreased left ventricular systolic function. Left ventricular ejection fraction is estimated at 45-50%. Global left ventricular hypokinesis. There is no pericardial effusion. Bev Sanders MD (Electronically Signed) Final Date: 11 Sep 2024 12:47 S
[2024-09-16 14:18] LABS: Basophils % 0.4 %; Eosinophils % 0.8 %; Lymphocytes # 0.7 10^3/uL (0.8-4.8); Lymphocytes % 13.9 %; Mean Corpuscular Hemoglobin 30.3 pg (27-33); Mean Corpuscular Volume 94.4 fl (85-98); Mean Platelet Volume 9.8 fL (7.4-10.4); Monocytes # 0.4 10^3/uL (0.2-0.9); Monocytes % 8.1 %; Neutrophils # 3.86 10^3/uL (1.8-7.7); Neutrophils % 76.4 %; Nucleated Red Blood Cells % 0 %; Platelet Count 162 10^3/cmm (157-399); Red Blood Count 4.66 10^6/uL (3.85-5.65); Red Cell Distribution Width 13.8 % (12.1-15.1); White Blood Count 5.05 10^3/uL (3.29-11.43)
[2024-09-16 14:49] LABS: Alanine Aminotransferase 37 U/L (0-33); Albumin Level 4.2 g/dL (3.5-5.2); Alkaline Phosphatase 80 U/L (35-105); Anion Gap 13.9 (5-19); Aspartate Amino Transferase 32 U/L (0-32); Blood Urea Nitrogen 19 mg/dL (8-23); Calcium 9.8 mg/dL (8.5-10.5); Carbon Dioxide 29 mmol/L (22-29); Chloride 98 mmol/L (98-107); Globulin 3.2 g/dL (1.3-4.6); Glucose 108 mg/dL (65-115); Osmolality Calculated 287 mOsm/kg (285-295); Potassium 3.9 mmol/L (3.5-5.1); Sodium 137 mmol/L (136-145); Total Bilirubin 0.9 mg/dL (0.15-1.2); Total Protein 7.4 g/dL (6.6-8.7)
== END 2024-10-10 23:59 | disposition home or self-care (01) ==
PROVIDERS: PCP Internal Medicine; Visit Provider Nurse Practitioner Family
DX: C50.911 Malignant neoplasm of unspecified site of right female breast (principal); D50.9 Iron deficiency anemia, unspecified; R03.0 Elevated blood-pressure reading, without diagnosis of hypertension; Z79.899 Other long term (current) drug therapy
CPT/HCPCS: 36415; 80053; 85025; 86300; 93308; 99214

== ENCOUNTER 2024-10-30 09:44 | Oncology outpatient (recurring) (ONCR) | payer MEDICARE, OTHER, SELFPAY ==
--- NOTE | 2024-10-30 10:00 | USCV_ITS ---
Carrie Winston Age: 88 Gender: F : 1935 Exam Date: 10/30/2024 10:50 Ordering Phys: Fiona Arredondo APRN Technologist: Tripp Alston Exam Location: [facility] [place] Indication: repeat due to LV changes BP: 114 / 76 HR: Rhythm: Sinus Technical Quality: Adequate MEASUREMENTS (Male / Female) Normal Values 2D ECHO LV Diastolic Diameter PLAX 4.2 cm 4.2 - 5.9 / 3.9 - 5.3 cm IVS Diastolic Thickness 0.9 cm 0.6 - 1.0 / 0.6 - 0.9 cm IVS Systolic Thickness 1.2 cm LVPW Diastolic Thickness 1.0 cm 0.6 - 1.0 / 0.6 - 0.9 cm LVPW Systolic Thickness 1.4 cm LVOT Diameter 2.0 cm LV Ejection Fraction 2D Teich 50.5 % LV Ejection Fraction MOD 4C 53.4 % LV Ejection Fraction MOD 2C 47.6 % LV Ejection Fraction 2C AL 45.9 % LA Diameter 3.5 cm RA Systolic Volume 4C AL 58.2 ml RA Systolic Volume 4C MOD 56.8 ml LA Sys Volume AL 67.8 cm cubed LA Sys Volume Index AL 45.5 cm cubed/m squared Aorta at Sinotubular Diameter 2.0 cm IVC Diameter 1.4 cm M-MODE LA Ao Ratio MM 1.6 AV Cusp Separation MM 1.6 cm FINDINGS Left Ventricle Mild global hypokinesis with mildly reduced left ventricular systolic function. Estimated LVEF 45 to 50%. Right Ventricle Right Atrium Left Atrium Mitral Valve Aortic Valve Tricuspid Valve Pulmonic Valve Pericardium No pericardial effusion. Aorta IVC Normal inferior vena cava. CONCLUSIONS Limited echo to assess LV systolic function. Mild global hypokinesis with mildly reduced LV systolic function. Estimated LVEF 45 to 50% Compared to last echo report (09/2024), there is no change in the LVEF. Max Hanna MD (Electronically Signed) Final Date: 30 October 2024 18:36 S
== END 2024-11-09 23:59 | disposition home or self-care (01) ==
LOC: RAD 09:45 → ONCMED 11-02 10:00
PROVIDERS: PCP Internal Medicine; Visit Provider Nurse Practitioner Family
DX: Z79.899 Other long term (current) drug therapy (principal); R93.1 Abnormal findings on diagnostic imaging of heart and coronary circulation
CPT/HCPCS: 93308

== ENCOUNTER 2024-11-16 09:19 | Oncology outpatient (recurring) (ONCR) | payer MEDICARE, OTHER, SELFPAY ==
[2024-11-16 09:38] LABS: Hematocrit 50.7 % (36-47); Hemoglobin 15.90 g/dL (11.27-16.99); Mean Corpuscular HGB Conc 31.4 g/dL (30-55); Mean Corpuscular Hemoglobin 30.5 pg (27-33); Mean Corpuscular Volume 97.3 fl (85-98); Nucleated Red Blood Cells % 0 %; Platelet Count 178 10^3/cmm (157-399); Red Blood Count 5.21 10^6/uL (3.85-5.65); White Blood Count 5.26 10^3/uL (3.29-11.43)
[2024-11-16 09:55] LABS: Alanine Aminotransferase 41 U/L (0-33); Albumin Level 4.1 g/dL (3.5-5.2); Alkaline Phosphatase 96 U/L (35-105); Anion Gap 14.0 (5-19); Aspartate Amino Transferase 34 U/L (0-32); Blood Urea Nitrogen 21 mg/dL (8-23); Calcium 10.1 mg/dL (8.5-10.5); Carbon Dioxide 28 mmol/L (22-29); Chloride 98 mmol/L (98-107); Globulin 3.6 g/dL (1.3-4.6); Glucose 156 mg/dL (65-115); Osmolality Calculated 288 mOsm/kg (285-295); Potassium 4.0 mmol/L (3.5-5.1); Sodium 136 mmol/L (136-145); Total Protein 7.7 g/dL (6.6-8.7)
== END 2024-12-10 23:59 | disposition home or self-care (01) ==
PROVIDERS: Nurse Practitioner Family; PCP Internal Medicine; Visit Provider Internal Medicine Medical Oncology
DX: C50.911 Malignant neoplasm of unspecified site of right female breast (principal); D50.9 Iron deficiency anemia, unspecified; R03.0 Elevated blood-pressure reading, without diagnosis of hypertension; Z79.899 Other long term (current) drug therapy; Z92.25 Personal history of immunosuppression therapy
CPT/HCPCS: 36415; 80053; 85025; 99214

== ENCOUNTER 2024-12-21 10:30 | Oncology outpatient (recurring) (ONCR) | payer MEDICARE, OTHER, SELFPAY ==
--- NOTE | 2024-12-15 13:30 | USCV_ITS ---
Carrie Winston Age: 89 Gender: F : 1935 Exam Date: 12/15/2024 13:36 Ordering Phys: Hermelindo Elizabeth MD Technologist: Exam Location: [facility] [place] Indication: mr BP: 125 / 70 HR: 66 Rhythm: Sinus Technical Quality: Adequate MEASUREMENTS (Male / Female) Normal Values 2D ECHO LV Diastolic Diameter PLAX 3.8 cm 4.2 - 5.9 / 3.9 - 5.3 cm IVS Diastolic Thickness 1.0 cm 0.6 - 1.0 / 0.6 - 0.9 cm IVS Systolic Thickness 1.5 cm LVPW Diastolic Thickness 1.2 cm 0.6 - 1.0 / 0.6 - 0.9 cm LVPW Systolic Thickness 1.7 cm LVOT Diameter 2.0 cm LV Ejection Fraction 2D Teich 69.3 % LV Ejection Fraction MOD 4C 41.0 % LV Ejection Fraction MOD 2C 43.1 % LV Ejection Fraction 2C AL 44.9 % LA Diameter 3.5 cm RA Systolic Volume 4C AL 94.2 ml RA Systolic Volume 4C MOD 91.6 ml Aorta at Sinotubular Diameter 2.5 cm IVC Diameter 2.5 cm M-MODE LA Ao Ratio MM 1.6 AV Cusp Separation MM 1.6 cm DOPPLER AV Peak Velocity 102.0 cm/s LVOT Peak Velocity 62.0 cm/s AV Area Cont Eq vti 3.3 cm squared AV Area Cont Eq pk 2.0 cm squared MV Peak Velocity 551.0 cm/s MV Area PHT 4.3 cm squared Mitral E to A Ratio 3.3 TV Peak Velocity 249.5 cm/s TR Peak Velocity 264.0 cm/s TR Peak Gradient 27.9 mmHg TV Peak E Velocity 94.0 cm/s PV Peak Velocity 48.0 cm/s FINDINGS Left Ventricle Diffuse hypokinesia of the left ventricle with an ejection fraction of 44%. Normal LV size Right Ventricle Normal right ventricular size and systolic function. Right Atrium Moderately increased right atrial size. Left Atrium Moderately increased left atrial size. Mitral Valve Moderate mitral annular calcification. Moderate-severe mitral valve regurgitation. Aortic Valve Mild to moderate aortic valve regurgitation. Tricuspid Valve Mild tricuspid valve regurgitation. Pulmonic Valve Pulmonic valve not well visualized. Pericardium No pericardial effusion. Aorta Normal aortic annulus size. IVC Inferior vena cava not visualized. CONCLUSIONS Normal LV size with reduced ejection fraction of 44%. Moderate biatrial enlargement Moderate-severe mitral valve regurgitation. Moderate mitral annular calcification. Mild to moderate aortic valve regurgitation. Mild tricuspid valve regurgitation. Estimated pulmonary artery peak systolic pressure around 31 mmHg Compared with previous study from 10/30/2024, there is no significant change in the LV ejection fraction. Mitral regurgitation appears to be moderately severe compared to the study from 01/20/2024 Dr Suzy Kang MD [facility] (Electronically Signed) Final Date: 16 December 2024 20:58 S
[2024-12-21 10:41] LABS: Hematocrit 45.9 % (36-47); Hemoglobin 14.70 g/dL (11.27-16.99); Mean Corpuscular HGB Conc 32.0 g/dL (30-55); Mean Corpuscular Hemoglobin 30.1 pg (27-33); Mean Corpuscular Volume 94.1 fl (85-98); Nucleated Red Blood Cells % 0 %; Platelet Count 169 10^3/cmm (157-399); Red Blood Count 4.88 10^6/uL (3.85-5.65); White Blood Count 6.53 10^3/uL (3.29-11.43)
[2024-12-21 11:14] LABS: Alanine Aminotransferase 27 U/L (0-33); Albumin Level 4.4 g/dL (3.5-5.2); Alkaline Phosphatase 86 U/L (35-105); Anion Gap 12.9 (5-19); Aspartate Amino Transferase 25 U/L (0-32); Blood Urea Nitrogen 20 mg/dL (8-23); CA 15-3 17.7 U/mL (0-25); Calcium 9.8 mg/dL (8.5-10.5); Carbon Dioxide 31 mmol/L (22-29); Chloride 99 mmol/L (98-107); Creatinine Clr Calc Pharmacy 31.5343; Globulin 3.3 g/dL (1.3-4.6); Glucose 73 mg/dL (65-115); Osmolality Calculated 289 mOsm/kg (285-295); Potassium 3.9 mmol/L (3.5-5.1); Sodium 139 mmol/L (136-145); Thyroid Stimulating Hormone 1.27 uIU/mL (0.27-4.20); Total Protein 7.7 g/dL (6.6-8.7)
== END 2025-01-10 23:59 | disposition home or self-care (01) ==
PROVIDERS: PCP Internal Medicine; Visit Provider Internal Medicine Medical Oncology
DX: C50.911 Malignant neoplasm of unspecified site of right female breast; D50.9 Iron deficiency anemia, unspecified; E78.00 Pure hypercholesterolemia, unspecified; R03.0 Elevated blood-pressure reading, without diagnosis of hypertension; Z79.899 Other long term (current) drug therapy; Z53.9 Procedure and treatment not carried out, unspecified reason
CPT/HCPCS: 36415; 80053; 84443; 85025; 86300; 93306; 99214

== ENCOUNTER 2025-01-23 19:05 | Emergency (ER) | payer MEDICARE, OTHER, SELFPAY ==
--- OUTSIDE RECORDS SUMMARY | 2025-01-23 19:10 | XMS_ITS | Clinical Summary ---
Author Organization [facility] Address [address] [place] [address] Phone Care Team Providers Care Scalder Name Role Phone Unavailable Primary Care Provider Unavailabl e Allergies No known active allergies Medications acetaminophen (TYLENOL) 325 mg tablet Take 2 Tablets (650 mg) by mouth every 6 hours as needed for Other (See Comment) (See admin instructions). 1 Active aspirin (TOY CHEWABLE) 81 mg Tablet, Chewable Take 1 Tablet (81 mg) by mouth daily with breakfast. 4 Tablet 1 Active atorvastatin (LIPITOR) 40 mg tablet Take 1 Tablet (40 mg) by mouth daily at bedtime. 30 Tablet 1 Active clopidogreL (PLAVIX) 75 mg Tablet Take 1 Tablet (75 mg) by mouth daily. 30 Tablet 1 Active dabigatran etexilate (PRADAXA) 110 mg Capsule Take 1 Capsule (110 mg) by mouth 2 times daily. 60 Capsule 1 Active docusate sodium (COLACE) 100 mg capsule Take 1 Capsule (100 mg) by mouth 2 times daily. 60 Capsule 1 Active latanoprost (XALATAN) 0.005 % solution Administer 1 Drop in both eyes daily. 2.5 mL 1 Active levothyroxine 75 mcg tablet Take 1 Tablet (75 mcg) by mouth daily in the morning. 30 Tablet 1 Active pantoprazole (PROTONIX) 40 mg Tablet, Delayed Release (E.C.) Take 1 Tablet (40 mg) by mouth daily before breakfast. 30 Tablet 1 Active saliva stimulant combo #3 (BIOTENE) [place], Non-Aerosol 1 [place] by Mouth/Throat route see administration instructions. 44.3 mL 1 Active sennosides (SENOKOT) 8.6 mg tablet Take 1 Tablet (8.6 mg) by mouth daily. 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 AF (atrial fibrillation) 11/12/2020 Hypothyroidism 11/12/2020 Carotid stenosis, right 11/12/2020 Overview (11/17/2020): S/p stent Protein-calorie malnutrition, mild 11/12/2020 GERD (gastroesophageal reflux disease) 1 History of head and neck cancer 11/12/2020 Resolved Problems Problem Noted Date Diagnosed Date Resolved Date Dysphagia 11/12/2020 11/16/2020 Social History Tobacco Use Types Packs/Day Years Used Date Smoking Tobacco: Never Smokeless Tobacco: Never Alcohol Use Standard Drinks/Week Comments Never 0 (1 standard drink = 0.6 oz pur e alcohol) Comments Unknown Sex and Gender Information Value Date Recorded Sex Assigned at Not on file Legal Sex Female 3:21 PM CDT Gender Identity Not on file Sexual Orientation Not on file Last Filed Vital Signs Vital Sign Reading Time Taken Comments Blood Pressure 126/74 11/17/2020 4:30 AM CDT Pulse 78 11/17/2020 4:30 AM CDT Temperature 36.4 C (97.6 F) 11/17/2020 4:30 AM CDT Respiratory Rate 16 11/17/2020 4:30 AM CDT Oxygen Saturation 96% 11/17/2020 4:30 AM CDT Inhaled Oxygen Concentration - - Weight 57.5 kg (126 lb 11.2 oz) 11/13/2020 6:00 AM CDT Height 167.6 cm (5' 6 ) 11/13/2020 6:00 AM CDT Body Mass Index 20.45 11/13/2020 6:00 AM CDT Plan of Treatment Health Maintenance Due Date Last Done Comments DTAP/TDAP/TD VACCINES (1 - Tdap) 1954 PNEUMOCOCCAL VACCINE 50+ YEARS (1 of 1 - PCV) 11/18/18 88 ZOSTER VACCINE (1 of 2) 11/19/1987 OSTEOPOROSIS SCREENING 2002 RSV VACCINE (60+ or ) (1 - 1-dose 75+ series) 2012 INFLUENZA VACCINE (#1) 2024 Insurance MEDICARE PART A AND B [employer] Advance Directives For more information, please contact: [phone] * Full Code (Latest Code Status on File) Date Activated Date Inactivated Comments 11/12/2020 4:29 PM 11/17/2020 6:32 PM
[2025-01-23 19:15] VITALS: BP 126/76; PULSE 73; RESP 16; TEMP 36.9; O2SAT 96; BMI 18.6
[2025-01-23 19:19] VITALS: BP 126/76; PULSE 73; RESP 16; TEMP 36.9; O2SAT 96
--- NOTE | 2025-01-23 19:20 | ECG_ITS ---
[facility]25[facility]23 Pat Name: Carrie Winston Department: Room: Gender: Female Ssrs Report Developer: : 1935 Requested By: George Chowdhury Order Number: [id number] Jackson MD: Alden Mcconnell M.D. Measurements Intervals [place] Rate: 81 P: 0 NH: 0 QRS: -15 QRSD: 95 T: 30 QT: 405 QTc: 472 Interpretive Statements ATRIAL FIBRILLATION INCOMPLETE RIGHT BUNDLE BRANCH BLOCK [90+ ms QRS DURATION, TERMINAL R IN V1/V2, 40+ ms S IN I/aVL/V4/V5/V6] ABNORMAL RHYTHM ECG Compared to ECG 05/29/2023 15:51:30 HEART RATE HAS DECREASED Electronically Signed On 01-24-2025 20:22:08 CDT by Alden Mcconnell M.D. [email or web address]
[2025-01-23 19:36] LABS: Hematocrit 43.4 % (36-47); Hemoglobin 14.40 g/dL (11.27-16.99); Mean Corpuscular HGB Conc 33.2 g/dL (30-55); Mean Corpuscular Hemoglobin 30.3 pg (27-33); Mean Corpuscular Volume 91.2 fl (85-98); Nucleated Red Blood Cells % 0 %; Platelet Count 173 10^3/cmm (157-399); Red Blood Count 4.76 10^6/uL (3.85-5.65); White Blood Count 6.68 10^3/uL (3.29-11.43)
--- NOTE | 2025-01-23 19:44 | XRR_ITS ---
PROCEDURE INFORMATION: Exam: XR Chest Exam date and time: 01/23/2025 8:15 PM Age: 89 years old Clinical indication: Other: Weakn ess; Additional info: Weakness; HX breast/throat TECHNIQUE: Imaging protocol: Radiologic exam of the chest. Views: 1 view. COMPARISON: CT chest abdpel w/*[id number] 03/31/2024 1:07 PM FINDINGS: Lungs: Unremarkable. No consolidation. Pleural spaces: Unremarkable. No pleural effusion. No pneumothorax. Heart/Mediastinum: Unremarkable. No cardiomegaly. Bones/joints: Unremarkable. XR/XR chest 1V portable [id number] IMPRESSION: No acute findings.
[2025-01-23 20:14] LABS: Alanine Aminotransferase 22 U/L (0-33); Albumin Level 3.7 g/dL (3.5-5.2); Alkaline Phosphatase 72 U/L (35-105); Anion Gap 17.3 (5-19); Aspartate Amino Transferase 23 U/L (0-32); Blood Urea Nitrogen 27 mg/dL (8-23); Calcium 9.3 mg/dL (8.5-10.5); Carbon Dioxide 23 mmol/L (22-29); Chloride 100 mmol/L (98-107); Creatinine Clr Calc Pharmacy 42.6417; Globulin 2.9 g/dL (1.3-4.6); Glucose 149 mg/dL (65-115); Osmolality Calculated 290 mOsm/kg (285-295); Potassium 4.3 mmol/L (3.5-5.1); Sodium 136 mmol/L (136-145); Total Protein 6.6 g/dL (6.6-8.7)
--- NOTE | 2025-01-23 20:22 | W.ED.WEAKNES ---
HPI - Weakness General: Chief complaint: Weakness Stated complaint: weakness Time Seen by Provider: 01/23/25 19:08 History of Present Illness: Patient is an 89-year-old female who presents today with weakness, hypotension, and dizziness. According to the patient's caregiver (likely daughter), the patient was found this morning in a significantly deteriorated state compared to her baseline. The caregiver reports finding the patient still in bed at 1:00 PM, appearing 'totally sunken in, ' with difficulty speaking, marked jitteriness, and inability to stand without assistance due to dizziness. Multiple home blood pressure readings were concerning for hypotension, with values ranging from 77-90/60s mmHg. The patient had a PET scan yesterday for breast cancer follow-up, which required dietary restrictions for preparation. The caregiver notes that the patient's diet is normally limited to milk, brioche, pudding, and soup, and she has dietary restrictions. Due to the PET scan preparation, the patient essentially had 'a couple of days of fasting, ' which the caregiver believes may have contributed to her current condition. The patient denies fever, vomiting, or diarrhea, but reports constipation. It was discovered that she has been taking stool softeners with laxatives despite minimal food intake over several days. The patient denies current pain. Related Data Home Medications ?Medication ?Instructions ?Recorded ?Confirmed latanoprost 0.005 % eye drops 1 drp ophthalmic (eye) BEDTIME 09/05/20 12/21/24 (Xalatan) metoprolol tartrate 100 mg tablet 100 mg PO BID 09/05/20 12/21/24 pantoprazole 40 mg tablet,delayed 40 mg PO QAM 09/05/20 12/21/24 release clopidogrel 75 mg tablet 75 mg PO QAM 11/09/20 12/21/24 atorvastatin 20 mg tablet 20 mg PO DAILY 12/05/21 12/21/24 diltiazem HCl 30 mg tablet 30 mg PO QID 06/28/23 12/21/24 cholecalciferol (vitamin D3) 125 10,000 unit PO BID 11/28/23 12/21/24 mcg (5,000 unit) tablet (Vitamin D3) levothyroxine 100 mcg capsule 100 mcg PO QAM 08/25/24 12/21/24 Previous Rx's ?Medication ?Instructions ?Recorded dabigatran etexilate 75 mg capsule 75 mg PO BID #180 caps 06/10/23 (Pradaxa) prochlorperazine maleate 10 mg 10 mg PO Q4H PRN Mild Nausea #30 09/18/23 tablet (Compazine) tabs anastrozole 1 mg tablet See Rx Instructions .Route 12/10/24 .COMPLEX #30 tabs Allergies Allergy/AdvReac Type Severity Reaction Status Date / Time No Known Allergies Allergy Verified 12/21/24 10:43 PFSH ED PFSH: Medical History Primary tonsillar squamous cell carcinoma Recurrent breast cancer DNI (do not intubate) DNR (do not resuscitate) Bloody discharge from right nipple Breast cancer, right Carotid artery disease GERD (gastroesophageal reflux disease) CVA (cerebral vascular accident) 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 Glaucoma Hypercholesteremia History of atrial fibrillation Surgical History Status post right breast lumpectomy (09/18/21) re excision margin -10/05/21 Status post carotid surgery right carotid stent S/P appendectomy History of colonoscopy Family History Father Myocardial infarct Hypercholesteremia CAD (coronary artery disease) Chronic kidney disease (CKD) Mother Hypercholesteremia Alzheimer disease Dementia CAD (coronary artery disease) Sister CAD (coronary artery disease) Cancer Daughter Diabetes Social History Smoking and tobacco/nicotine status: never used tobacco/nicotine Physical Exam Const: GENERAL APPEARANCE: cooperative, ill appearing and frail appearing (mildly) NUTRITIONAL APPEARANCE: thin HENMT: COMMON NORMALS: normocephalic, atraumatic and Normal external nose present HEAD & SCALP: normocephalic and atraumatic FACE & SINUS: normal facial exam and face symmetric NOSE: Normal external nose present Eye: COMMON NORMALS: Equal, round and reactive pupils present and EOMs intact bilaterally PUPIL: Yes Equal, round and reactive pupils present Neck/C-Spine: GENERAL: Yes trachea midline Chest: CHEST: Yes Symmetrical chest wall rise Resp: COMMON NORMALS: normal respiratory effort, No retractions, No use of accessory muscles and clear to auscultation bilaterally AUSCULTATION: clear to auscultation bilaterally Cardio: COMMON NORMALS: regular rate and regular rhythm RATE: regular rate RHYTHM: regular rhythm GI: COMMON NORMALS: Normal to inspection, nondistended, normoactive bowel sounds present Extremity: COMMON NORMALS: no pedal edema Neuro: CARRIE COMA SCALE: document GCS findings Carrie coma scale eye opening: Spontaneous [place] coma scale verbal response: Confused [place] coma scale motor response: Obey commands Carrie coma scale total score: 14 SENSORY EXAM: Yes extremities (intact) Psych: COMMON NORMALS: speech normal SPEECH: Yes normal speech Skin: COMMON NORMALS: no rashes or lesions noted GENERAL SKIN EXAM: no rashes or lesions noted Course Vital Signs: Vital signs: Vital Signs Temperature 98.4 F 01/23/25 19:19 Pulse Rate 80 01/23/25 22:35 Respiratory Rate 16 01/23/25 22:35 Blood Pressure 144/93 01/23/25 22:35 Pulse Oximetry 96 01/23/25 22:35 Oxygen Delivery Me thod Room Air 01/23/25 19:19 MDM - Weakness Medical Decision Making 89-year-old female presenting from home. She is mildly thin cachectic. She had hypotension at home. She has been normotensive year. She was given a fluid bolus, and appears improved. Or CBC is normal BMP showed BUN of 27, creatinine of 0.8. chest x-ray is negative. Liver enzymes are normal. Urinalysis is negative. With improvement and her blood pressure, and family noting she looks improved, she is stable for discharge. She is encouraged to drink plenty of liquids, get adequate calorie intake, and return for any worsening symptoms. Lab Data 01/23/25 19:29 01/23/25 19:53 Radiology Impressions Chest X-Ray 01/23/25 19:44 IMPRESSION: No acute findings. Laboratory Results WBC 6.68 10^3/uL (3.29-11.43) 01/23/25 19:29 RBC 4.76 10^6/uL (3.85-5.65) 01/23/25 19:29 Hgb 14.40 g/dL (11.27-16.99) 01/23/25 19:29 Hct 43.4 % (36-47) 01/23/25 19:29 MCV 91.2 fl (85-98) 01/23/25 19: MCH 30.3 pg (27-33) 01/23/25 19: MCHC 33.2 g/dL (30-55) 01/23/25 19: RDW 13.7 % (12.1-15.1) 01/23/25 19: Plt Count 173 10^3/cmm (157-399) 01/23/25: MPV 10.0 fL (7.4-10.4) 01/23/25 19: Neut % (Auto) 82.6 % 01/23/25 19: Lymph % (Auto) 9.7 % 01/23/25: [place] % (Auto) 6.7 % 01/23/25: Eos % (Auto) 0.3 % 01/23/25: Baso % (Auto) 0.3 % 01/23/25: Neut # (Auto) 5.51 10^3/uL (1.8-7.7) 01/23/25: Lymph # (Auto) 0.7 10^3/uL (0.8-4.8) L 01/23/25: [place] # (Auto) 0.5 10^3/uL (0.2-0.9) 01/23/25: Eos # (Auto) 0.0 10^3/uL (0.0-0.8) 01/23/25: Baso # (Auto) 0.0 10^3/uL (0.0-0.1) 01/23/25: Nucleated RBC % (auto) 0 % 01/23/25: Nucleated RBCs # 0.0 /100WBC 01/23/25 19:29 Sodium 136 mmol/L (136-145) 01/23/25 19:53 Potassium 4.3 mmol/L (3.5-5.1) 01/23/25 19:53 Chloride 100 mmol/L (98-107) 01/23/25 19:53 Carbon Dioxide 23 mmol/L (22-29) 01/23/25 19:53 Anion Gap 17.3 (5-19) 01/23/25 19:53 BUN 27 mg/dL (8-23) H 01/23/25 19:53 Creatinine 0.8 mg/dL (0.5-0.9) 01/23/25 19:53 GFR Calculation Not Reportable 01/23/25 19:53 Glucose 149 mg/dL (65-115) H 01/23/25 19:53 Calculated Osmolality 290 mOsm/kg (285-295) 01/23/25 19:53 Calcium 9.3 mg/dL (8.5-10.5) 01/23/25 19:53 Total Bilirubin 0.6 mg/dL (0.15-1.2) 01/23/25 19:53 AST 23 U/L (0-32) 01/23/25 19:53 ALT 22 U/L (0-33) 01/23/25 19:53 Alkaline Phosphatase 72 U/L (35-105) 01/23/25 19:53 Total Protein 6.6 g/dL (6.6-8.7) 01/23/25 19:53 Albumin 3.7 g/dL (3.5-5.2) 01/23/25 19:53 Globulin 2.9 g/dL (1.3-4.6) 01/23/25 19:53 Urine Color Yellow (Yellow) 01/23/25 21:51 Urine Appearance Clear (CLEAR) 01/23/25 21:51 Urine pH 6.5 (5-7) 01/23/25 21:51 Ur Specific [place] 1.003 (1.005-1.030) L 01/23/25 21:51 Urine Protein Negative (Negative) 01/23/25 21:51 Urine Glucose (UA) Negative (Normal) 01/23/25 21:51 Urine Ketones Negative (Negative) 01/23/25 21:51 Urine Blood Negative (Negative) 01/23/25 21:51 Urine Nitrate Negative (Negative) 01/23/25 21:51 Urine Bilirubin Negative (Negative) 01/23/25 21:51 Urine Urobilinogen 0.2 mg/dL (Negative) 01/23/25 21:51 Ur Leukocyte Esterase Negative (Negative) 01/23/25 21:51 Urine RBC 0-2 /hpf (0-2) 01/23/25 21:51 Urine WBC 0-5 /hpf (0-5) 01/23/25 21:51 Ur Squamous Epith Cells 0-5 /hpf (0-5) 01/23/25 21:51 Amorphous Sediment Not Reportable 01/23/25 21:51 Urine Bacteria None seen /hpf (NONE) 01/23/25 21:51 Hyaline Casts 0-4 /lpf H 01/23/25 21:51 All radiology interpretation(s) finalized by discharge Discharge Plan Discharge Patient Disposition: Home Clinical Impression: Dehydration, Hypotension Condition: Stable Prescriptions: No Action latanoprost [Xalatan] 0.005 % drops 1 drp ophthalmic (eye) BEDTIME pantoprazole 40 mg tablet,delayed release (DR/EC) 40 mg PO QAM metoprolol tartrate 100 mg tablet 100 mg PO BID atorvastatin 20 mg tablet 20 mg PO DAILY diltiazem HCl 30 mg tablet 30 mg PO QID Pradaxa 75 mg capsule 75 mg PO BID Qty: 180 3RF anastrozole 1 mg tablet See Rx Instructions .ROUTE .COMPLEX Qty: 30 2RF Dose Instruction: TAKE ONE TABLET BY MOUTH DAILY FOR 30 DAYS Rx Instructions: TAKE ONE TABLET BY MOUTH DAILY FOR 30 DAYS clopidogrel 75 mg tablet 75 mg PO QAM cholecalciferol (vitamin D3) [Vitamin D3] 125 mcg (5,000 unit) tablet 10,000 unit PO BID prochlorperazine maleate [Compazine] 10 mg tablet 10 mg PO Q4H PRN (Reason: Mild Nausea) Qty: 30 3RF levothyroxine 100 mcg capsule 100 mcg PO QAM Discharge Orders: Discharge ED (Routine); Ordered 01/23/25 Ordered By: George Rai Referrals: Bonnie Gonzalez MD [Primary Care Provider, Internal Medicine] - 1-3 days Patient Instructions: Dehydration (ED), Opioid Safety, Pain Management, Patient Portal & Mervat Instructions Activity Restrictions/Additional Instructions: Drink plenty of clear liquids the next 48 hours. Return for mental status changes, lethargy, vomiting, fever, any other concerning symptoms call your doctor Saturday for follow-up appointment. Print Language: Latvian Coding Level of Care Code ED Clay Mixer for Darion Juárez
[2025-01-23 22:08] VITALS: BP 138/85; PULSE 78; RESP 16; O2SAT 97
[2025-01-23 22:15] LABS: Glucose Urine UA Negative (Normal); Nitrate Urine Negative (Negative); Specific Gravity, Urine 1.003 (1.005-1.030)
[2025-01-23 22:23] LABS: Add Urine Microscopic? YES
[2025-01-23 22:35] VITALS: BP 144/93; PULSE 80; RESP 16; O2SAT 96
== END 2025-01-23 22:37 | disposition home or self-care (01) ==
PROVIDERS: Emergency Provider Emergency Medicine; PCP Internal Medicine
DX: E86.0 Dehydration (principal); I95.9 Hypotension, unspecified; Z79.02 Long term (current) use of antithrombotics/antiplatelets; Z86.73 Personal history of transient ischemic attack (TIA), and cerebral infarction without residual deficits; I25.10 Atherosclerotic heart disease of native coronary artery without angina pectoris; Z85.3 Personal history of malignant neoplasm of breast
CPT/HCPCS: 71045; 80053; 81001; 85025; 93005; 99285; J7120

== ENCOUNTER 2025-02-04 14:44 | Oncology outpatient (recurring) (ONCR) | payer MEDICARE, OTHER, SELFPAY ==
--- NOTE | 2025-01-22 09:30 | PETR_ITS ---
PROCEDURE INFORMATION: Exam: PET/CT Skull Base to Mid-thigh Exam date and time: 01/22/2025 3:56 PM Age: 89 years old Clinical indication: Condition or disease; Primary cancer: Primary tonsillar squamous cell carcinoma, LABS AND CLINICAL REPORTS: Glucose: 76 mg/dl Treatment strategy for malignancy (PET staging): Restaging (PS) TECHNIQUE: Imaging protocol: Following at least four-hour fasting and following the injection of radiopharmaceutical, low dose CT images were obtained. Then, PET images were obtained. Attenuation corrected images were constructed using the CT scan. Fused images of PET and CT were reviewed. The standardized uptake values (SUV) reported below are maximum values within a region of interest, expressed in gm/ml. Exam includes orbital meatal line to mid-thigh. SUV normalization method: BodyWeight Radiopharmaceutical: 8.6 mCi F-18 FDG (Fluorodeoxyglucose), IV. Time of imaging post radiopharmaceutical administration: 47 minutes Injection site: left ac COMPARISON: PT PET skull to thigh SUBS [id number] 06/05/2024 10:21 AM FINDINGS: Brain: Visualized brain has normal physiologic uptake. Pharynx: No abnormal uptake. Larynx: No abnormal uptake. Lungs, pleura and trachea: Platelike atelectasis versus scarring at the lower lungs. No consolidation or mass. Heart: Normal physiologic uptake. Cardiomegaly with right atrial enlargement. Coronary arteries: Moderate coronary artery calcification. Mediastinal space: No abnormal uptake. Liver: No abnormal uptake. Redemonstrated hepatic cysts. Gallbladder and biliary ducts: No abnormal uptake. Pancreas: No abnormal uptake. Spleen: No abnormal uptake. Adrenal glands: No abnormal uptake. Kidneys and ureters: Normal physiologic uptake. Nonobstructive right nephrolithiasis. Stomach and bowel: No abnormal uptake. Moderate colonic stool burden. Vasculature: No abnormal uptake. Heavy systemic atherosclerotic calcification without aortic aneurysm. Right carotid artery vascular stent. Lymph nodes: No abnormal uptake. No lymphadenopathy in the head, neck, chest, abdomen, pelvis, and extremities. Skeleton: Developed focal FDG uptake at the anterior right 1st rib showing SUV max 4.1 on axial image 97. Developed FDG uptake at lateral left 10th rib showing SUV max 6.4 on axial image 179 with underlying sclerosis. Increased area of FDG uptake with heterogeneous sclerosis at the posterior left T11 vertebral body and posterior elements with SUV max 6.6 (previously 5.9) and increased area of FDG avid sclerosis at the leftward T12 vertebral body with decreased avidity showing SUV max 6.6 on axial image 155 (previously 8.4). Developed rightward sacral FDG uptake with SUV max 4.5 on axial image 235. Developed superior left acetabular and left femoral head FDG-avid lesions. Increased area of FDG avid left pubic bone sclerosis with SUV max 7.4 on axial image 260 (previously 4.8). Degenerative change along the axial skeletal system. Soft tissues: No abnormal uptake in the visualized head, neck, chest, abdomen, pelvis, and extremities. METRICS: Mediastinal blood pool: SUV mean 2.0 Liver uptake: SUV mean 2.4 PET/PET skull to thigh SUBS [id number] IMPRESSION: 1. Compared to May 2024, mixed treatment response with resolved FDG avid right axillary lymphadenopathy but progressed multifocal osseous metastases as above. 2. Additional chronic and incidental findings as above.
[2025-02-01 08:07] LABS: Hematocrit 45.0 % (36-47); Hemoglobin 14.30 g/dL (11.27-16.99); Mean Corpuscular HGB Conc 31.8 g/dL (30-55); Mean Corpuscular Hemoglobin 29.8 pg (27-33); Mean Corpuscular Volume 93.8 fl (85-98); Nucleated Red Blood Cells % 0 %; Platelet Count 185 10^3/cmm (157-399); Red Blood Count 4.80 10^6/uL (3.85-5.65); White Blood Count 4.57 10^3/uL (3.29-11.43)
[2025-02-01 08:37] LABS: Alanine Aminotransferase 23 U/L (0-33); Albumin Level 4.0 g/dL (3.5-5.2); Alkaline Phosphatase 88 U/L (35-105); Anion Gap 14.0 (5-19); Aspartate Amino Transferase 24 U/L (0-32); Blood Urea Nitrogen 24 mg/dL (8-23); CA 15-3 18.6 U/mL (0-25); Calcium 9.9 mg/dL (8.5-10.5); Carbon Dioxide 29 mmol/L (22-29); Chloride 99 mmol/L (98-107); Creatinine Clr Calc Pharmacy 31.5343; Globulin 3.4 g/dL (1.3-4.6); Glucose 146 mg/dL (65-115); Osmolality Calculated 293 mOsm/kg (285-295); Potassium 4.0 mmol/L (3.5-5.1); Sodium 138 mmol/L (136-145); Total Protein 7.4 g/dL (6.6-8.7)
[2025-02-02] MEDS: denosumab-bbdz 120 mg SDV (Inpatient and Infusion Clinic Use) SUBCUT (16:32)
--- NOTE | 2025-02-04 16:03 | ONCRAD EPV_ITS ---
Radiation Oncology Established Patient Visit Patient: Tish Butler [id number] : 1935> Age: 89> Sex: Female> Dictated by: Mane Samano DO/KAIT Date of Service: 02/04/2025 Referring Physician(s) : Dr. Hermelindo Elizabeth Diagnosis: C50.911 - Malignant neoplasm of unspecified site of right female breast, Diagnosed 06/11/2024 (Active) C77.3 - Secondary and unspecified malignant neoplasm of axilla and upper limb lymph nodes, Diagnosed 06/11/2024 (Active) RT BREAST CA PD ???IDC, ANASTROZOLE, PHESGO (HELD D/T Apr), START TYKERB/ XGEVA STAGE: IV ICD-10:C79.51, C50.911, C77.3 Radiotherapy to Date: Course: R axilla, Treatment Site: [id number], Ref. ID: [id number], Energy: 15X/6X, Dose/Fx (cGy): 300, #Fx: , Dose Correction (cGy): 0, Total Dose Delivered (cGy): 3,000, Start Date: 06/22/2024, End Date: 07/08/2024, Elapsed Days: 16 Current History: This is a pleasant 89-year-old female here to discuss possible treatment for her bone mets. This PT accompanied by 1 daughter to talk about symptomatic bone met treatment. Invasive right breast cancer, diagnosed on 09/18/21 at time of right breast lumpectomy, since abreast biopsy was not possible, given subareolar location of the tumor. The final pathology showed PD-IDC, 1.0cm with ulceration of nipple and skin. The surgical margins were positive, with perineural invasion, and possible dermal lymphatic invasion, along with HG-DCIS. The tumor was ER/HI positive, and HER2-erin 3+ positive by IHC. The patient had a re-excision of the right breast on 10/05/21 for positive margins, with no residual carcinoma seen. She was offered adjuvant chemotherapy and radiation, but declined treatment. A follow-up mammogram on 07/09/23 showed soft tissue thickening and edema in soft tissue of right breast, near her prior lumpectomy, with an abnormal right axillary node identified. An US-guidedbiopsy of the right axillary node on 08/07/23 showed an invasive ductal carcinoma, ER/HI positive and HER2-erin positive by FISH, with a Ki-67 index of 16%. A PET scan on 09/03/23 showed FDG avid right axillary adenopathy and subcutaneous edema, with skin thickening in right breast, but no distant disease. She was started on oral Anastrozole on 09/17/23, and began Phesgo injections on 09/26/23. Thepatient has been tolerating Phesgo well, with no significant side effects. A repeat PET/CT scan on 12/03/23 showed a decrease in uptake of FDG-avid right axillary nodes, and stable skin thickening in Right breast, but no new findings. Phesgo has been on hold since September 2024 due to decreased ejection fraction. Patient was also evaluated by surgery and decided not to have mastectomy Echocardiogram December 15 stay shows ejection is 40% She has been off Phesgo since September. Still taking anastrozole. Overall tolerated very well. PET scan January 22, 2025 showed mixed treatment response. With resolved axillalymphadenopathy but of progressive multifocal Osseous disease. Patient has relatively few symptoms at the present time based on the amount of bony mets. Her past medical history is significant for an invasive tonsillar carcinoma, diagnosed in 2011 while living in [facility], and treated with chemotherapy and radiation, with a complete remission. The pain complaints are minimal and consistent as noting increased tenderness when sitting down on her coccyx. She denies any left hip pain. Current Medications: anastrozole TAKE ONE TABLET BY MOUTH DAILY FOR 30 DAYS atorvastatin 20 mg PO DAILY cholecalciferol (vitamin D3) (Vitamin D3) 10,000 units PO BID clopidogrel 75 mg PO QAM dabigatran etexilate (Pradaxa) 75 mg PO BID diltiazem HCl 30 mg PO QID latanoprost 0.005% (Xalatan) 1 drp ophthalmic (eye) BEDTIME levothyroxine 100 mcg PO QAM metoprolol tartrate 100 mg PO BID pantoprazole 40 mg PO QAM Allergies: No Known Allergies Current Complaints / Review of Systems: . ABOVE Vital Signs: Performed on 02/04/2025 1:52 PM Height - 65 in. Physical Exam: General: Alert and oriented x 3. No acute distress. HEENT: Normocephalic, atraumatic. Extraocular Movements Intact: Pupils Equal, Round, Reactive to Light and Accommodation: Sclerae anicteric. Oral cavity is clear without lesions, masses or ulcers. NECK: Supple without supraclavicular or jugular lymphadenopathy. LUNGS: Clear to auscultation bilaterally without rales, rhonchi or wheeze. HEART: Regular rate and rhythm, normal S1 and S2 without murmur, gallop or rub. MUSCULOSKELETAL: No tenderness or percussion pain over the axial skeleton, scapulae or pelvis. ABDOMEN: Soft, nontender, nondistended without masses or organomegaly. Bowell sounds are present. EXTREMITIES: No peripheral edema is identified. Limited motor and sensory examination are grossly intact and symmetric bilaterally. No pain with rotation. NEUROLOGIC: Cranial nerves II ???XII are grossly intact. Normal sensation, strength 5/5 in all extremities, normal gait, no ataxia. Performance Status: KPS 70 Lab: None pending. Pathology: Primary, c50.911 - malignant neoplasm of unspecified site of right female breast, Diagnosed 06/11/2024 (active) and Primary, c77.3 - secondary and unspecified malignant neoplasm of axilla and upper limb lymph nodes, Diagnosed 06/11/2024 (active) . Imaging: See HPI Impression: C50.911 - Malignant neoplasm of unspecified site of right female breast, Diagnosed 06/11/2024 (Active) C77.3 - Secondary and unspecified malignant neoplasm of axilla and upper limb lymph nodes, Diagnosed 06/11/2024 (Active) RT BREAST CA PD ???IDC, ANASTROZOLE, PHESGO (HELD D/T Apr), START TYKERB/ XGEVA STAGE: IV ICD-10:C79.51, C50.911, C77.3 PLAN: Discussed options with the patient and daughter Family has a gathering plan for [facility] the first week of February and patient wishes to be there. After she returns we will recommend palliative XRT to the symphysis plus left hip and proximal femur. Proximate dose would be 2000 cGy in 5 fractions. Daughter will obtain some [place]'s medication to utilize during treatment and afterwards. CT SIM on 02/22/2025. Signed by: 02/04/2025 4:01:21 PM <<Signature on File>> Time spent with patient/daughter/review of records/report completion: CPT Code: CPT Code:
== END 2025-02-09 23:59 | disposition home or self-care (01) ==
PROVIDERS: Internal Medicine Medical Oncology; PCP Internal Medicine; Visit Provider Radiology Radiation Oncology
DX: C50.911 Malignant neoplasm of unspecified site of right female breast (principal); Z17.0 Estrogen receptor positive status [ER+]; C77.3 Secondary and unspecified malignant neoplasm of axilla and upper limb lymph nodes; C79.51 Secondary malignant neoplasm of bone
CPT/HCPCS: 36415; 78815; 80053; 85025; 86300; 96401; 99214; 99215; A9552; Q5136

== ENCOUNTER 2025-03-02 12:39 | Oncology outpatient (recurring) (ONCR) | payer MEDICARE, OTHER, SELFPAY ==
[2025-03-02 13:21] LABS: Hematocrit 45.7 % (36-47); Hemoglobin 14.60 g/dL (11.27-16.99); Mean Corpuscular HGB Conc 31.9 g/dL (30-55); Mean Corpuscular Hemoglobin 29.7 pg (27-33); Mean Corpuscular Volume 93.1 fl (85-98); Nucleated Red Blood Cells % 0 %; Platelet Count 186 10^3/cmm (157-399); Red Blood Count 4.91 10^6/uL (3.85-5.65); White Blood Count 5.08 10^3/uL (3.29-11.43)
[2025-03-02 13:48] LABS: Alanine Aminotransferase 17 U/L (0-33); Albumin Level 4.2 g/dL (3.5-5.2); Alkaline Phosphatase 79 U/L (35-105); Aspartate Amino Transferase 23 U/L (0-32); Blood Urea Nitrogen 26 mg/dL (8-23); CA 15-3 21.0 U/mL (0-25); Calcium 9.8 mg/dL (8.5-10.5); Carbon Dioxide 31 mmol/L (22-29); Chloride 99 mmol/L (98-107); Creatinine Clr Calc Pharmacy 35.4761; Globulin 3.3 g/dL (1.3-4.6); Glucose 82 mg/dL (65-115); Osmolality Calculated 290 mOsm/kg (285-295); Sodium 138 mmol/L (136-145); Total Protein 7.5 g/dL (6.6-8.7)
[2025-03-02 13:57] LABS: Anion Gap 12.3 (5-19); Potassium 4.3 mmol/L (3.5-5.1)
[2025-03-02] MEDS: denosumab-bbdz 120 mg SDV (Inpatient and Infusion Clinic Use) SUBCUT (14:13)
--- NOTE | 2025-03-02 14:44 | ONCRAD TMN_ITS ---
Radiation Oncology Weekly Treatment Management Patient: Carrie Winston MR#: [id number] : 1935 Attending Physician: Shaw Samano Date of Service: 03/02/2025 Referring Physician(s) : Dr. Hermelindo Elizabeth Diagnosis: C79.51 - Secondary malignant neoplasm of bone, Diagnosed 02/04/2025 (Active) C50.911 - Malignant neoplasm of unspecified site of right female breast, Diagnosed 06/11/2024 (Active) C77.3 - Secondary and unspecified malignant neoplasm of axilla and upper limb lymph nodes, Diagnosed 06/11/2024 (Active) Radiotherapy to date: Course: LEFT HIP/PROX FE, Treatment Site: Lt Hip SYMP, Ref. ID: [id number], Energy: 15X, Dose/Fx (cGy): 400, #Fx: 3 / 5, Dose Correction (cGy): 0, Total Dose Delivered (cGy): 1,200, Start Date: 02/24/2025, Elapsed Days: 6 Reason for visit: The patient is being seen today as part of their regularly scheduled weekly on treatment visits to assess for acute toxicities from radiotherapy. Review of Systems: No real voice complaints. Had injection therapy today. Labs adequate for injection today Vital Signs: Performed on 03/02/2025 1:54 PM BMI - 16.641 kg/m2 (low), Height - 65 in, Weight - 100 lbs, Temperature - 97.2 f, Pulse - 101 /min (high), Respiration - 16 /min, O2 Sat - 97 %, Pain - 0, Fatigue - 0 and BP - 116/ 85 mm(hg). Physical Exam: AAOx3. Skin intact. No real pain. Imaging: Radiation therapy imaging related to accurate target localization (i.e. KV, MV and CBCT) was reviewed. Appropriate changes, if any, were made to ensure treatment accuracy. Plan: Continue XRT Signed by: Shaw Samano 03/02/2025 2:43:21 PM
--- NOTE | 2025-03-17 08:40 | N.ONRD TS_ITS ---
Radiation Oncology Treatment Summary Patient: Carrie Winston MR#: [id number] : 1935 Age: 89 Sex: Female Dictated by: Dr. Stephanie Murrieta Date of Service: 03/16/2025 Referring Physician(s) : Dr. 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 ID: [id number], Energy: 15X, Dose/Fx (cGy): 400, #Fx: 3 / 5, Dose Correction (cGy): 0, Total Dose Delivered (cGy): 1,200, Start Date: 02/24/2025, End Date: 03/02/2025, Elapsed Days: 6 Course: R axilla, Treatment Site: [id number], Ref. ID: [id number], Energy: 15X/6X, Dose/Fx (cGy): 300, #Fx: 10 / 10, Dose Correction (cGy): 0, Total Dose Delivered (cGy): 3,000, Start Date: 06/22/2024, End Date: 07/08/2024, Elapsed Days: 16 Clinical Summary: The patient tolerated RT well. She completed 3 out of a planned 5 treatments. She continues to struggle with her diagnosis and decided to go on hospice. Plan: Patient enrolled in Hospice on 03/11/25. Stopped treatment early (completed 3/5fx) after cancelling several appointments. Signed by: Dr. Stephanie Murrieta>03/17/2025 8:40:07 AM <<Signature on File>>
== END 2025-03-12 23:59 | disposition home or self-care (01) ==
PROVIDERS: Nurse Practitioner Family; PCP Internal Medicine; Visit Provider Radiology Radiation Oncology
DX: Z53.9 Procedure and treatment not carried out, unspecified reason; Z51.0 Encounter for antineoplastic radiation therapy; C50.911 Malignant neoplasm of unspecified site of right female breast; Z17.0 Estrogen receptor positive status [ER+]; D50.9 Iron deficiency anemia, unspecified; R03.0 Elevated blood-pressure reading, without diagnosis of hypertension; R53.83 Other fatigue; K59.00 Constipation, unspecified; R68.2 Dry mouth, unspecified; Z79.899 Other long term (current) drug therapy; C79.51 Secondary malignant neoplasm of bone; C77.3 Secondary and unspecified malignant neoplasm of axilla and upper limb lymph nodes
CPT/HCPCS: 36415; 77290; 77295; 77300; 77334; 77387; 77412; 80053; 85025; 86300; 96372; 99024; 99214; Q5136